=== PATIENT | female | born 1945 | race Caucasian/White ===

== ENCOUNTER → 2016-06-08 | Outpatient (CLI) | payer OTHER ==
[~2016-06-08] MED LIST: ADVIN25050 INH; ALBUAER2 INH; CLOR3.7515 PO; CLR10 PO; ESCI10TA17 PO; GLC5 PO; GLC500 PO; LEVO100T48 PO; LISI-725 PO; NAPR1TAB9 PO; SIMV40TA2 PO; SNG10 PO; THEO1TAB14 PO
[2016-06-08 13:26] LABS: BLOOD UREA NITROGEN 38 mg/dl (7-18); BUN/CREATININE RATIO 20.1 (10-20); CALCIUM 9.2 mg/dl (8.5-10.1); CARBON DIOXIDE 19 mmol/L (21-32); CHLORIDE 110 mmol/L (98-107); GLUCOSE 161 mg/dl (70-99); PHOSPHORUS 4.2 mg/dl (2.5-4.9); POTASSIUM 5.3 mmol/L (3.5-5.1); SODIUM 140 mmol/L (136-145)
[2016-06-08 13:29] LABS: ESTIMATED AVERAGE GLUCOSE 212 mg/dl; HA1C FLAG Normal (Normal)
== END | disposition home or self-care (01) ==
LOC: C.LABMFLN 14:09
PROVIDERS: ATTEND Family Medicine
DX: E11.65 Type 2 diabetes mellitus with hyperglycemia (principal)

== ENCOUNTER → 2016-09-07 | Outpatient (CLI) | payer OTHER ==
[~2016-09-07] MED LIST changes: -THEO1TAB14 PO; +THEO300T14 PO
[2016-09-07 13:55] LABS: RATIO 31.5 mcg/mg (0-30.0)
[2016-09-07 14:07] LABS: ESTIMATED AVERAGE GLUCOSE 189 mg/dl; HA1C FLAG Normal (Normal)
[2016-09-07 14:25] LABS: ALT/SGPT 14 U/L (12-78); AST/SGOT 12 U/L (15-37); BLOOD UREA NITROGEN 44 mg/dl (7-18); BUN/CREATININE RATIO 19.3 (10-20); CALCIUM 8.9 mg/dl (8.5-10.1); CARBON DIOXIDE 24 mmol/L (21-32); CHLORIDE 107 mmol/L (98-107); CHOLESTEROL 155 mg/dl (0-200); GLUCOSE 156 mg/dl (70-99); POTASSIUM 4.5 mmol/L (3.5-5.1); SODIUM 141 mmol/L (136-145)
[2016-09-07 14:28] LABS: ALB/GLOB RATIO 0.8 (0.9-2); ALKALINE PHOSPHATASE 62 U/L (45-117); CHOLESTEROL/HDL RATIO 3.9; HDL CHOLESTEROL 40 mg/dl; LDL CHOLESTEROL CALCULATED 86 mg/dl; TRIGLYCERIDES 145 mg/dl (0-150); VERY LOW DENSITY LIPOPROT CALC 29 mg/dl
== END | disposition home or self-care (01) ==
LOC: C.LABMFLN 08:48
PROVIDERS: ATTEND Family Medicine
DX: N13.5 Crossing vessel and stricture of ureter without hydronephrosis (principal); E11.65 Type 2 diabetes mellitus with hyperglycemia; N18.3 Chronic kidney disease, stage 3 (moderate); E78.5 Hyperlipidemia, unspecified; J45.909 Unspecified asthma, uncomplicated

== ENCOUNTER → 2016-12-10 | Outpatient (CLI) | payer OTHER ==
[~2016-12-10] MED LIST changes: +THEO1TAB14 PO; -THEO300T14 PO
[2016-12-10 14:17] LABS: ESTIMATED AVERAGE GLUCOSE 183 mg/dl; HA1C FLAG Normal (Normal)
[2016-12-10 14:24] LABS: BLOOD UREA NITROGEN 28 mg/dl (7-18); BUN/CREATININE RATIO 18.9 (10-20); CALCIUM 9.3 mg/dl (8.5-10.1); CARBON DIOXIDE 27 mmol/L (21-32); CHLORIDE 105 mmol/L (98-107); GLUCOSE 137 mg/dl (70-99); POTASSIUM 4.3 mmol/L (3.5-5.1); SODIUM 139 mmol/L (136-145)
[2016-12-10 14:25] LABS: PHOSPHORUS 3.4 mg/dl (2.5-4.9)
== END | disposition home or self-care (01) ==
LOC: C.LABMFLN 10:57
PROVIDERS: ATTEND Family Medicine
DX: N18.3 Chronic kidney disease, stage 3 (moderate) (principal); E11.65 Type 2 diabetes mellitus with hyperglycemia

== ENCOUNTER → 2017-03-16 | Outpatient (CLI) | payer OTHER ==
[~2017-03-16] MED LIST changes: -THEO1TAB14 PO; +THEO300T14 PO
[2017-03-16 17:59] LABS: BASO % 0.2 %; BASO ABS # 0.02 K/uL (0-0.2); COMPLETE YES; EOS % 2.8 %; IG% 0.3 %; LYMPH % 17.4 %; LYMPH ABS # 1.78 K/uL (1.2-3.4); MEAN CELL VOLUME 91.8 fL (80-100); MEAN CORPUSCULAR HEMOGLOBIN 30.3 pg (25-34); MEAN PLATELET VOLUME 11.9 fL (7.4-10.4); MONO % 5.6 %; NEUT % 73.7 %; PLATELET COUNT 281 K/uL (130-400); RED BLOOD COUNT 4.03 M/uL (4.2-5.4); WHITE BLOOD COUNT 10.25 K/uL (4.8-10.8)
[2017-03-16 18:05] LABS: BLOOD UREA NITROGEN 28 mg/dl (7-18); BUN/CREATININE RATIO 20.3 (10-20); CALCIUM 9.9 mg/dl (8.5-10.1); CARBON DIOXIDE 29 mmol/L (21-32); CHLORIDE 104 mmol/L (98-107); CREATININE 1.39 mg/dl (0.60-1.20); GLUCOSE 210 mg/dl (70-99); POTASSIUM 4.8 mmol/L (3.5-5.1); SODIUM 140 mmol/L (136-145)
[2017-03-16 18:07] LABS: URINE APPEARANCE CLEAR (CLEAR); URINE BILIRUBIN NEG (NEG); URINE COLOR DK YELLOW; URINE EPITHELIAL CELL AUTO >30 /lpf (0-5); URINE NITRITE NEG (NEG); URINE SPECIFIC GRAVITY 1.025 (1.000-1.030); UROBILINOGEN NEG (NEG)
[2017-03-16 18:15] LABS: MANUAL MICROSCOPIC REQUIRED? NO; REVIEW REQ? YES
[2017-03-16 18:15] LABS: PHOSPHORUS 3.5 mg/dl (2.5-4.9)
[2017-03-17 06:01] LABS: ESTIMATED AVERAGE GLUCOSE 203 mg/dl; HA1C FLAG Normal (Normal)
== END | disposition home or self-care (01) ==
LOC: C.LABMFLN 12:01
PROVIDERS: ATTEND Family Medicine
DX: R30.0 Dysuria (principal); E11.65 Type 2 diabetes mellitus with hyperglycemia; E03.9 Hypothyroidism, unspecified

== ENCOUNTER → 2017-06-23 | Outpatient (CLI) | payer OTHER ==
[2017-06-23 18:14] LABS: ALBUMIN 3.5 gm/dl (3.4-5.0); BLOOD UREA NITROGEN 30 mg/dl (7-18); CALCIUM 9.3 mg/dl (8.5-10.1); CARBON DIOXIDE 30 mmol/L (21-32); GLUCOSE 154 mg/dl (70-99); PHOSPHORUS 3.5 mg/dl (2.5-4.9); POTASSIUM 4.6 mmol/L (3.5-5.1); SODIUM 138 mmol/L (136-145); URIC ACID 5.9 mg/dl (2.6-7.2)
[2017-06-24 06:54] LABS: HEMOGLOBIN A1C 9.2 % (4.5-5.6)
== END | disposition home or self-care (01) ==
LOC: C.LABMFLN 11:41
PROVIDERS: ATTEND Family Medicine
DX: E11.65 Type 2 diabetes mellitus with hyperglycemia (principal); N18.3 Chronic kidney disease, stage 3 (moderate); E11.22 Type 2 diabetes mellitus with diabetic chronic kidney disease; M10.9 Gout, unspecified

== ENCOUNTER 2021-07-24 13:49 | Inpatient (IN) ==
[2021-07-24 14:56] LABS: Basophils # (auto) 0.01 K/uL (0-0.2); Basophils % (auto) 0.2 %; Eosinophils # (auto) 0.04 K/uL (0-0.5); Eosinophils % (auto) 0.8 %; Hematocrit (blood only) 31.5 % (37-47); Hemoglobin 10.3 g/dL (12.0-16.0); Immature Granulocytes # (auto) 0.01 K/uL (0.00-0.02); Immature Granulocytes % (auto) 0.2 %; Lymphocytes # (auto) 0.46 K/uL (1.2-3.4); Mean Corpuscular Hgb Conc 32.7 g/dL (32-36); Mean Corpuscular Volume 94.9 fL (80-100); Mean Platelet Volume 12.2 fL (7.4-10.4); Monocytes % (auto) 3.9 %; Neutrophils # (auto) 4.39 K/uL (1.4-6.5); Neutrophils % (auto) 85.9 %; Platelet Count 218 K/uL (130-400); RDW Coefficient of Variation 13.1 % (11.5-14.5); RDW Standard Deviation 45.4 fL (36.4-46.3); Red Blood Count 3.32 M/uL (4.2-5.4); White Blood Count 5.11 K/uL (4.8-10.8)
--- NOTE | 2021-07-24 15:15 | Emergency Department Note ---
Impression & Plan Enteritis, Dementia, Confusion ED Provider Note Provider: Christopher Castillo MD DATE OF SERVICE: 07/24/2021 CHIEF COMPLAINT: Agitation, reported abdominal pain and diarrhea and vomiting HISTORY OF PRESENT ILLNESS: Patient is a 76-year-old female history of diabetes, dementia, hypothyroidism, breast cancer, CKD, and asthma per records presenting via ambulance today from her personal care facility with reported abdominal pain and diarrhea and vomiting since around 5 AM this morning according to the facility with some agitation. There is report the patient has had UTIs with similar symptoms in the past. Patient was reportedly angry at the facility. Patient upon my exam does not know why she here and does not know her birthday or year. Patient states things sort of hurt all over. She is unable to tell me if she is feeling nauseous or having any difficulty breathing. She follows sim ple commands but is quite confused and very tangential with any discussion. REVIEW OF SYSTEMS: Limited secondary to the patient's dementia PAST MEDICAL HISTORY: As noted above MEDICATIONS: Reviewed home medication list from the facility SOCIAL HISTORY: Resides at [facility] PHYSICAL EXAM: GENERAL: alert in no acute distress on stretcher but not closely oriented to recent events. Head: normocephalic and atraumatic EYES: No injection, discharge or icterus. PERRL, EOMI. NECK: Trachea midline. Supple. ENT: Mucous membranes pink and moist. LUNGS: Airway patent. No retractions. Breath sounds clear with good air entry bilaterally. HEART: Regular rate and rhythm. No chest wall tenderness ABDOMEN: Soft and non-tender, without guarding or rebound. SKIN: Acyanotic, warm, dry, without rashes EXTREMITIES: Without swelling, tenderness or deformity NEUROLOGICAL: No focal deficits. No aphasia. No facial droop. Normal strength and tone in the extremities. Sensation to gross touch normal. EK bpm normal sinus rhythm. No PVC or PAC. No acute ST segment elevation or depression. QTc 457. Normal axis. CONTINUOUS CARDIAC MONITORING: was ordered and showed a heart rate of 70s-80s bpm in normal sinus rhythm Patient's laboratory studies and imaging reviewed. Differential includes Infection, dehydration, metabolic abnormality, hypo/hyperglycemia, electrolyte disturbance, anemia, hypoxia, cardiac sources, intracerebral event, toxicologic, neurologic, as well as other pathologies. IMPRESSION/MEDICAL DECISION MAKING: Given some difficult history obtained from the patient. Does not appear in any significant distress. Vitals without severe abnormality. Basic blood work and broad differential was entertained. Given the patient's underlying dementia and some aggressiveness agitation today CT the head was completed. CT abdomen pelvis complete without contrast given her allergies to evaluate for any intra- abdominal pathology with her vomiting and diarrhea today. Basic blood work shows stable CKD. Minimal anemia. No significant leukocytosis is noted. Mild hyponatremia of 132 is noted. Some hyperglycemia noted. No significant evidence of hepatitis or hepatitis based on labs. Negative troponin. Urinalysis not impressive for infection at this time. Chest x-ray radiology report noted without significant finding. CT of the abdomen without significant findings. CT the head without significant findings. Given small amount IV fluid. Incidental left adnexal finding noted and updated patient's daughter regarding this. Given the patient's personal care status believe she needs further care at the hospital as she is in no condition to go home with her current memory/dementia issues. He comes a bit agitated cardiolipin Ativan here she tries to crawl to bed and is throwing her socks at staff and become somewhat angry. Hospitalist contacted DIAGNOSIS: Gastroenteritis, confusion DISPOSITION: Dated both the facility and the patient's daughter Rosi. Given the patient's personal care/assisted living status at home and her increased confusion with likely a GI illness feel that further observation is indicated. Past Med/Surg History Medical History Acid reflux disease Adenomatous colon polyp Allergic rhinitis Anemia due to chronic kidney disease Anxiety Asthma Benign essential hypertension CKD (chronic kidney disease), stage III Dementia with behavioral disturbance Depression Diabetes Gout History of breast cancer Hyperlipidemia Hypothyroidism Lumbar stenosis with neurogenic claudication Nephrolithiasis Obstructive sleep apnea Osteopenia Vitamin D deficiency Surgical History H/O breast biopsy H/O colonoscopy 01/22/2016 repeat 5yrs H/O dilation and curettage History of cystoscopy History of salpingo-oophorectomy S/P breast lumpectomy S/P hysterectomy S/P ureteral stent placement Family History Mother Breast cancer Coronary heart disease Diabetes Myocardial infarction Aunt Breast cancer Brother Colorectal cancer Grandmother Diabetes Father Myocardial infarction Sister Myocardial infarction Brother Myocardial infarction Denies family history of Ovarian cancer Prostate cancer Social History Smoking Status: Never smoker Second Hand Exposure: Yes (Both parents smoked); Hx Alcohol Use: Yes Alcohol type: wine Alcohol Intake Frequency: Monthly or Less Hx Substance Use: No Preferred Language: Romansh Communication Ability: Effective Visual Impairment: Limited Hearing Ability: Normal Adjunct Teacher Required: No Beliefs That Will Affect Care: None marital status: Current Living Situation: Spouse current occupational status: retired How many Children do You have: 2 Feels Safe at Home: Yes Childhood Exposure to Second-Hand Smoke: Yes (Both parents smoked ) Diet Comment: Regular diet caffeine: No during the past year weight has: remained stable Dental Care, Regularly: No Physical Activity Frequency: Does not Exercise Seatbelt Use: always Sunscreen Use: No Do you think of yourself as: straight/heterosexual Assistive Devices: Denture - Upper, Denture - Lower and Glasses Allergies Allergies Allergy/AdvReac Type Severity Reaction Status Date / Time iodine Allergy Mild Unknown Verified 07/24/21 18:41 clams Allergy Unknown Unknown Verified 07/24/21 18:41 Sulfa (Sulfonamide Allergy Unknown Verified 07/24/21 18:41 Antibiotics) Home Meds Home Medications Medication Instructions Recorded Confirmed lancets [facility] 07/21/21 Lancets) ascorbic acid (vitamin C) 500 mg 500 mg PO DAILY cap 07/21/21 07/24/21 capsule ferrous sulfate 325 mg (65 mg 325 mg PO BID 07/21/21 07/24/21 iron) tablet quetiapine 50 mg tablet 50 mg PO BID 07/21/21 07/24/21 acetaminophen 325 mg tablet 975 mg PO Q6 PRN MDD 3g 07/24/21 07/24/21 albuterol sulfate 2.5 mg CONTINUOUS NEBULIZATION Q4 07/24/21 07/24/21 PRN aluminum-mag hydroxide-simethicone 15 ml PO Q4 PRN 07/24/21 07/24/21 200 mg-200 mg-20 mg/5 mL oral susp (Antacid Liquid) docusate sodium 100 mg capsule 100 mg PO DAILY PRN 07/24/21 07/24/21 levothyroxine 88 mcg tablet 88 mcg PO QAM 07/24/21 07/24/21 melatonin 3 mg disintegrating 3 mg PO HS PRN 07/24/21 07/24/21 tablet montelukast 10 mg tablet 10 mg PO HS 07/24/21 07/24/21 omeprazole 20 mg capsule,delayed 20 mg PO DAILY 07/24/21 07/24/21 release quetiapine 25 mg tablet 25 mg PO QAM 07/24/21 07/24/21 sennosides 8.6 mg capsule (senna) 8.6 mg PO DAILY PRN 07/24/21 07/24/21 Previous Rx's Medication Instructions Recorded blood sugar diagnostic (FreeStyle #300 ea 06/12/19 Lite Strips) escitalopram oxalate 20 mg tablet 20 mg PO DAILY #90 tab 09/05/20 atenolol 25 mg tablet 25 mg PO DAILY #90 tab 02/17/21 Saccharomyces boulardii 250 mg 250 mg PO BID #60 cap 07/24/21 capsule (Florastor) Results & Data (ED) Vital Signs Vital Signs - 24 hr 07/24/21 13:34 07/24/21 13:53 07/24/21 14:34 Temperature 37.4 C Temperature Source Oral Pulse Rate 88 82 Pulse Rate [Left Radial] 84 Pulse Rhythm Regular Pulse Rhythm [Left Radial] Regular Respiratory Rate 20 20 Respiratory Effort / Characteristics Non-Labored Non-Labored Respiratory Depth Normal Normal Respiratory Pattern Regular Blood Pressure 146/93 H Blood Pressure [Left Arm] 146/93 H Blood Pressure Mean 110 Blood Pressure Mean [Left Arm] 110 Blood Pressure Position Lying Blood Pressure Position [Left Arm] Pulse Oximetry 99 96 Oxygen Delivery Method Room Air Room Air Room Air Sepsis Recent Fever Within 48 Hours No Sepsis New/Unexplained Change in Mental Status Yes Sepsis Action Taken by Nursing No Action Required 07/24/21 16:00 07/24/21 18:00 07/24/21 20:14 Temperature Temperature Source Pulse Rate 78 Pulse Rate [Left Radial] 78 80 Pulse Rhythm Pulse Rhythm [Left Radial] Regular Respiratory Rate 20 20 14 Respiratory Effort / Characteristics Non-Labored Non-Labored Respiratory Depth Normal Normal Respiratory Pattern Blood Pressure 145/98 H Blood Pressure [Left Arm] 148/78 H 154/105 H Blood Pressure Mean Blood Pressure Mean [Left Arm] 101 121 Blood Pressure Position Blood Pressure Position [Left Arm] Lying Lying Pulse Oximetry 97 98 94 Oxygen Delivery Method Room Air Room Air Room Air Sepsis Recent Fever Within 48 Hours Sepsis New/Unexplained Change in Mental Status Sepsis Action Taken by Nursing Laboratory Data Result diagrams: 07/24/21 14:48 07/24/21 14:48 Lab Results 07/24/21 07/24/21 07/24/21 Range/Units 14:48 14:48 14:48 WBC 5.11 (4.8-10.8) K/uL RBC 3.32 L (4.2-5.4) M/uL Hgb 10.3 L (12.0-16.0) g/dL Hct 31.5 L (37-47) % MCV 94.9 (80-100) fL MCH 31.0 (25-34) pg MCHC 32.7 (32-36) g/dL RDW Std Deviation 45.4 (36.4-46.3) fL RDW Coeff of Greg 13.1 (11.5-14.5) % Plt Count 218 (130-400) K/uL MPV 12.2 H (7.4-10.4) fL Immature Gran % (Auto) 0.2 % Neut % (Auto) 85.9 % Lymph % (Auto) 9.0 % [place] % (Auto) 3.9 % Eos % (Auto) 0.8 % Baso % (Auto) 0.2 % Neut # (Auto) 4.39 (1.4-6.5) K/uL Lymph # (Auto) 0.46 L (1.2-3.4) K/uL [place] # (Auto) 0.20 (0.11-0.59) K/uL Eos # (Auto) 0.04 (0-0.5) K/uL Baso # (Auto) 0.01 (0-0.2) K/uL Immature Gran # (Auto) 0.01 (0.00-0.02) K/uL Sodium 132 L (136-145) mmol/L Potassium 4.7 (3.5-5.1) mmol/L Chloride 104 (98-107) mmol/L Carbon Dioxide 18 L (21-32) mmol/L Anion Gap 10 (3-11) BUN 25 H (6-23) mg/dl Creatinine 1.37 H (0.6-1.2) mg/dl Est Cr Clr Drug Dosing Not Reportable Est GFR ( Amer) 43.3 ml/min Est GFR (Non-Af Amer) 37.4 ml/min BUN/Creatinine Ratio 18.2 (10-20) Glucose 283 H (70-99(Fasting)) mg/dl Calcium 8.7 (8.5-10.1) mg/dl Total Bilirubin 0.4 (0.2-1.0) mg/dl AST 12 L (13-39) U/L ALT 15 (7-52) U/L Alkaline Phosphatase 57 (34-104) U/L Troponin I < 0.03 (0-0.04) ng/ml Total Protein 7.1 (6.0-8.3) gm/dl Albumin 3.7 (3.4-5.0) gm/dl Globulin 3.4 (2.5-4.0) gm/dl Albumin/Globulin Ratio 1.1 (0.9-2) Lipase 23 (11-82) U/L Urine Color Urine Appearance (Clear) Urine pH (4.5-7.5) Ur Specific [place] (1.000-1.030) Urine Protein (Negative) Urine Glucose (UA) (Negative) Urine Ketones (Negative) Urine Blood (Negative) Urine Nitrite (Negative) Urine Bilirubin (Negative) Urine Urobilinogen (Negative) Ur Leukocyte Esterase (Negative) SARS-CoV-2 (PCR) (Negative) Influenza Type A (PCR) (Neg) Influenza Type B (PCR) (Neg) RSV (RT-PCR) (Neg) 07/24/21 07/24/21 Range/Units 15:23 15:40 WBC (4.8-10.8) K/uL RBC (4.2-5.4) M/uL Hgb (12.0-16.0) g/dL Hct (37-47) % MCV (80-100) fL MCH (25-34) pg MCHC (32-36) g/dL RDW Std Deviation (36.4-46.3) fL RDW Coeff of Greg (11.5-14.5) % Plt Count (130-400) K/uL MPV (7.4-10.4) fL Immature Gran % (Auto) % Neut % (Auto) % Lymph % (Auto) % [place] % (Auto) % Eos % (Auto) % Baso % (Auto) % Neut # (Auto) (1.4-6.5) K/uL Lymph # (Auto) (1.2-3.4) K/uL [place] # (Auto) (0.11-0.59) K/uL Eos # (Auto) (0-0.5) K/uL Baso # (Auto) (0-0.2) K/uL Immature Gran # (Auto) (0.00-0.02) K/uL Sodium (136-145) mmol/L Potassium (3.5-5.1) mmol/L Chloride (98-107) mmol/L Carbon Dioxide (21-32) mmol/L Anion Gap (3-11) BUN (6-23) mg/dl Creatinine (0.6-1.2) mg/dl Est Cr Clr Drug Dosing Est GFR ( Amer) ml/min Est GFR (Non-Af Amer) ml/min BUN/Creatinine Ratio (10-20) Glucose (70-99(Fasting)) mg/dl Calcium (8.5-10.1) mg/dl Total Bilirubin (0.2-1.0) mg/dl AST (13-39) U/L ALT (7-52) U/L Alkaline Phosphatase (34-104) U/L Troponin I (0-0.04) ng/ml Total Protein (6.0-8.3) gm/dl Albumin (3.4-5.0) gm/dl Globulin (2.5-4.0) gm/dl Albumin/Globulin Ratio (0.9-2) Lipase (11-82) U/L Urine Color Yellow Urine Appearance Clear (Clear) Urine pH 5.0 (4.5-7.5) Ur Specific [place] 1.020 (1.000-1.030) Urine Protein Negative (Negative) Urine Glucose (UA) 2+ H (Negative) Urine Ketones Negative (Negative) Urine Blood Negative (Negative) Urine Nitrite Negative (Negative) Urine Bilirubin Negative (Negative) Urine Urobilinogen Negative (Negative) Ur Leukocyte Esterase Negative (Negative) SARS-CoV-2 (PCR) NEGATIVE (Negative) Influenza Type A (PCR) Negative (Neg) Influenza Type B (PCR) Negative (Neg) RSV (RT-PCR) Negative (Neg) Administered Medications Enoxaparin Sodium (Enoxaparin Inj 40 Mg/0.4 Ml Syr) 40 mg SQ Q24H DUNG Stop: 08/23/21 20:59 Last Admin: 07/24/21 21:40 Dose: 40 mg Documented by: [id number] Ferrous Sulfate (Ferrous Sulfate 325 Mg Tab) 325 mg PO BID DUNG Stop: 08/23/21 20:59 Last Admin: 07/24/21 21:41 Dose: 325 mg Documented by: [id number] Lactated Ringer's (Lr) 1,000 mls @ 80 mls/hr IV .[id number] DUNG Stop: 08/23/21 20:44 Last Admin: 07/24/21 21:40 Dose: 80 mls/hr Documented by: [id number] Montelukast Sodium (Montelukast Sodium 10 Mg Tablet) 10 mg PO HS DUNG Stop: 08/23/21 20:59 Last Admin: 07/24/21 21:41 Dose: 10 mg Documented by: [id number] Quetiapine Fumarate (Quetiapine Fumarate 25 Mg Tablet) 50 mg PO BID DUNG Stop: 08/23/21 20:59 Last Admin: 07/24/21 21:40 Dose: 50 mg Documented by: [id number] Saccharomyces Boulardii (Saccharomyces Boulardii 250 Mg Cap) 250 mg PO BID DUNG Stop: 08/23/21 20:59 Last Admin: 07/24/21 21:40 Dose: 250 mg Documented by: [id number] Discontinued Medications Sodium Chloride (Nss 1000ml) 500 mls @ 999 mls/hr IV .Q31M ONE Stop: 07/24/21 17:33 Last Infusion: 07/24/21 18:19 Dose: 0 mls/hr Documented by: [id number] Admin: 07/24/21 17:40 Dose: 999 mls/hr Documented by: [id number] Lorazepam (Lorazepam 2 Mg/1 Ml Vial) 0.5 mg IV NOW STA Stop: 07/24/21 18:13 Last Admin: 07/24/21 18:18 Dose: 0.5 mg Documented by: [id number] Ondansetron HCl (Ondansetron Inj 2 Mg/Ml 2 Ml Vial) Confirm Administered Dose 4 mg .ROUTE .STK-MED ONE Stop: 07/24/21 17:31 Last Admin: 07/24/21 17:40 Dose: Not Given Documented by: [id number] Ondansetron HCl (Ondansetron Inj 2 Mg/Ml 2 Ml Vial) 4 mg IV NOW STA Stop: 07/24/21 17:38 Last Admin: 07/24/21 17:40 Dose: 4 mg Documented by: [id number] Imaging Data Radiologist's Impression: Chest X-Ray 07/24/21 00:00 XR chest 1V portable CLINICAL HISTORY: AMS. Evaluate cardiopulmonary status COMPARISON STUDY: No previous studies for comparison. TECHNIQUE: 1 view of the chest FINDINGS: Single frontal view of the chest demonstrates the heart size to be mildly enlarged. The aorta is atherosclerotic and ectatic. The lungs are clear of alveolar opacities. There is no evidence for pleural effusion. There is no evidence for vascular congestion. There is no acute osseous pathology. IMPRESSION: 1. No acute cardiopulmonary disease. ACT 112: Negative or not required by law. Electronically signed by: Helio Figueroa M.D. 07/24/2021 4:01 PM Abdomen/Pelvis CT 07/24/21 15:02 CT OF THE ABDOMEN AND PELVIS WITHOUT CONTRAST CLINICAL HISTORY: Diarrhea and abdominal pain. COMPARISON STUDY: CT of the abdomen and pelvis February 24, 2008. TECHNIQUE: Axial images of the abdomen and pelvis were obtained without IV cont rast. Images were reviewed in the axial, sagittal, and coronal planes. Automated exposure control was utilized for the study. A dose lowering technique was utilized adhering to the principles of ALARA. FINDINGS: Lung bases are unremarkable. No pneumatosis, free air or portal venous gas is present. Mild dilatation of the right renal pelvis is unchanged since CT of February 24, 2008. No renal, ureteral or bladder calculi are present. A water attenuation 5.5 cm left upper pole lesion favors a renal cyst. This was present on prior CT. No biliary or pancreatic ductal dilatation. No peripancreatic or pericholecystic infiltration. Unenhanced images of the liver, spleen, adrenal glands and pancreas are unremarkable. The appendix is unremarkable. Colon is mildly fluid-filled. No evidence for a bowel obstruction. 2 nodules within the left adnexa measure up to 1.3 cm. These were not clearly present on prior CT. These are marginal significance. There is no ascites. There is no fluid collection. No acute fracture or suspicious lesion within the visualized skeletal structures. IMPRESSION: 1. No urinary calculi or hydronephrosis. Stable dilatation of the right renal pelvis since prior CT. 5.5 cm left renal cyst. 2. No evidence for a bowel obstruction. Fluid-filled colon which could indicate a diarrheal state. 3. 2 small left adnexal nodular densities which were not clearly present on prior CT. Although not highly suspicious, these are indeterminate and a follow- up CT in 6 months to ensure stability is recommended. ACT 112: Negative or not required by law. Electronically signed by: Anam Melendez M.D. 07/24/2021 4:[address] 07/24/21 15:02 CT OF THE HEAD WITHOUT CONTRAST CLINICAL HISTORY: Increased confusion. COMPARISON STUDY: No previous studies for comparison. CT DOSE: 690.05 mGycm TECHNIQUE: Helical axial images of the head were obtained without IV contrast. Automated exposure control was utilized for the study. A dose lowering techn ique was utilized adhering to the principles of ALARA. FINDINGS: No acute intracranial hemorrhage, midline shift or mass effect is present. White matter hypodensities are suggestive of small vessel disease. The ventricular system is unremarkable. The basal cisterns are patent. No extra- axial collections are present. There are no findings to suggest acute dural sinus thrombosis or acute territorial infarct. No significant calvarial abnormalities are present. Visualized portions of the sinuses and mastoid air cells are clear. IMPRESSION: No acute intracranial findings. ACT 112: Negative or not required by law. Electronically signed by: Anam Melendez M.D. 07/24/2021 4:20 PM Discharge Plan Visit Data Chief Complaint: Altered Mental Status ED Provider: Christopher Castillo Discharge Problem: Enteritis, Dementia, Confusion Patient Disposition: Admitted As Inpatient Discharge Instructions Interventions: ED Discharge Assessment Last Done: 07/24/21 20:14
[2021-07-24 15:19] LABS: Alanine Aminotransferase 15 U/L (7-52); Albumin Globulin Ratio 1.1 (0.9-2); Albumin Level 3.7 gm/dl (3.4-5.0); Alkaline Phosphatase 57 U/L (34-104); Anion Gap 10 (3-11); Aspartate Aminotransferase 12 U/L (13-39); BUN Creatinine Ratio 18.2 (10-20); Bilirubin,Total 0.4 mg/dl (0.2-1.0); Blood Urea Nitrogen 25 mg/dl (6-23); Calcium 8.7 mg/dl (8.5-10.1); Carbon Dioxide 18 mmol/L (21-32); Chloride 104 mmol/L (98-107); Est GFR (African American) 43.3 ml/min; Est GFR (Non-African American) 37.4 ml/min; Globulin 3.4 gm/dl (2.5-4.0); Glucose 283 mg/dl (70-99(Fasting)); Potassium 4.7 mmol/L (3.5-5.1); Sodium 132 mmol/L (136-145); Total Protein 7.1 gm/dl (6.0-8.3)
[2021-07-24 15:35] LABS: Appearance Urine Clear (Clear); Bilirubin Urine Negative (Negative); Blood Urine Negative (Negative); Color Urine Yellow; Glucose Urine UA 2+ (Negative); Ketones Urine Negative (Negative); Leukocyte Esterase Urine Negative (Negative); Nitrite Urine Negative (Negative); Protein Urine Negative (Negative); Urobilinogen Urine Negative (Negative)
[2021-07-24 15:59] LABS: Troponin I < 0.03 ng/ml (0-0.04)
[2021-07-24 16:03] LABS: Lipase 23 U/L (11-82)
--- NOTE | 2021-07-24 16:03 | XRay Report ---
XR chest 1V portable CLINICAL HISTORY: AMS. Evaluate cardiopulmonary status COMPARISON STUDY: No previous studies for comparison. TECHNIQUE: 1 view of the chest FINDINGS: Single frontal view of the chest demonstrates the heart size to be mildly enlarged. The aorta is athe rosclerotic and ectatic. The lungs are clear of alveolar opacities. There is no evidence for pleural effusion. There is no evidence for vascular congestion. There is no acute osseous pathology. IMPRESSION: 1. No acute cardiopulmonary disease. ACT 112: Negative or not required by law. Electronically signed by: Helio Figueroa M.D. 07/24/2021 4:01 PM
--- NOTE | 2021-07-24 16:21 | CT Scan Report ---
CT OF THE HEAD WITHOUT CONTRAST CLINICAL HISTORY: Increased confusion. COMPARISON STUDY: No previous studies for comparison. CT DOSE: 690.05 mGycm TECHNIQUE: Helical axial images of the head were obtained without IV contrast. Automated exposure con trol was utilized for the study. A dose lowering technique was utilized adhering to the principles o f ALARA. FINDINGS: No acute intracranial hemorrhage, midline shift or mass effect is present. White matter hyp odensities are suggestive of small vessel disease. The ventricular system is unremarkable. The basal cisterns are patent. No extra-axial collections are present. There are no findings to suggest acute d ural sinus thrombosis or acute territorial infarct. No significant calvarial abnormalities are presen t. Visualized portions of the sinuses and mastoid air cells are clear. IMPRESSION: No acute intracranial findings. ACT 112: Negative or not required by law. Electronically signed by: Anam Melendez M.D. 07/24/2021 4:20 PM
[2021-07-24 16:29] LABS: Influenza A virus by PCR Negative (Neg); Influenza B virus by PCR Negative (Neg); RSV by PCR Negative (Neg); SARS CoV2 RNA(COVID-19) InHosp NEGATIVE (Negative)
--- NOTE | 2021-07-24 16:31 | CT Scan Report ---
CT OF THE ABDOMEN AND PELVIS WITHOUT CONTRAST CLINICAL HISTORY: Diarrhea and abdominal pain. COMPARISON STUDY: CT of the abdomen and pelvis February 24, 2008. TECHNIQUE: Axial images of the abdomen and pelvis were obtained without IV contrast. Images were revi ewed in the axial, sagittal, and coronal planes. Automated exposure control was utilized for the almas dy. A dose lowering technique was utilized adhering to the principles of ALARA. FINDINGS: Lung bases are unremarkable. No pneumatosis, free air or portal venous gas is present. Mild dilatation of the right renal pelvis is unchanged since CT of February 24, 2008. No renal, ureteral o r bladder calculi are present. A water attenuation 5.5 cm left upper pole lesion favors a renal cyst. This was present on prior CT. No biliary or pancreatic ductal dilatation. No peripancreatic or peric holecystic infiltration. Unenhanced images of the liver, spleen, adrenal glands and pancreas are unre markable. The appendix is unremarkable. Colon is mildly fluid-filled. No evidence for a bowel obstruc tion. 2 nodules within the left adnexa measure up to 1.3 cm. These were not clearly present on prior CT. These are marginal significance. There is no ascites. There is no fluid collection. No acute frac ture or suspicious lesion within the visualized skeletal structures. IMPRESSION: 1. No urinary calculi or hydronephrosis. Stable dilatation of the right renal pelvis since prior CT. 5.5 cm left renal cyst. 2. No evidence for a bowel obstruction. Fluid-filled colon which could indicate a diarrheal state. 3. 2 small left adnexal nodular densities which were not clearly present on prior CT. Although not hi ghly suspicious, these are indeterminate and a follow-up CT in 6 months to ensure stability is recomm ended. ACT 112: Negative or not required by law. Electronically signed by: Anam Melendez M.D. 07/24/2021 4:29 PM
[2021-07-24] MEDS ORDERED: SODIUM CHLORIDE 0.9% 1000ML 500 ML IV ONE (17:03)
--- NOTE | 2021-07-24 17:05 | Electrocardiogram Report ---
Test Reason : Blood Pressure : / mmHG Vent. Rate : 081 BPM Atrial Rate : 081 BPM P-R Int : 130 ms QRS Dur : 076 ms QT Int : 394 ms P-R-T Axes : 042 045 033 degrees QTc Int : 457 ms Normal sinus rhythm Normal ECG When compared with ECG of 21-JAN-2007 17:29, No significant change was found Confirmed by Abad Barbosa ([id number]) on 07/24/2021 5:05:00 PM Referred By: Confirmed By:Santi Barbosa
[2021-07-24] MEDS ORDERED: ONDANSETRON INJ 2 MG/ML 2 ML VIAL ONE (17:30)
[2021-07-24] MEDS ORDERED: ONDANSETRON INJ 2 MG/ML 2 ML VIAL IV STA (17:37)
[2021-07-24] MEDS ORDERED: LORazepam 2 MG/1 ML VIAL IV STA (18:12)
--- NOTE | 2021-07-24 19:08 | History & Physical Report ---
Date of Service July 24, 2021 Assessment & Plan (1) Enteritis: Plan: Seems most likely viral, given that there is a viral enteritis predominant in the community at this time. Follow, gently hydrate, supportive care. If the diarrhea persists, given that she has been on antibiotics recently in discussion with the daughter (admission to [facility] about a week ago for a kidney infection), then C. difficile testing may be warranted, but does not seem to be needed at this time. Gentle IV fluids, watchful waiting. (2) Dementia with behavioral disturbance: Plan: Likely a delirium superimposed on dementia due to the illness from enteritis. Continue her home Seroquel, supportive care. Hopefully her behaviors will settle enough that she is able to return to her known environment (3) CKD (chronic kidney disease), stage III: Plan: Overall surprisingly stable despite looking a little bit dehydratedgentle IV fluids as above, follow basic metabolic panel (4) Anemia due to chronic kidney disease: Plan: Follow periodic CBC (5) Diabetes: Plan: Last A1c was 6.8 about 3 months agogiven her age and dementia, no need to recheck this at this time. No specific management needed, but given that her p.o. intake may be suspect, we will utilize twice daily fingersticksmore than anything to help protect her from hypoglycemia from low reserve (6) DVT prophylaxis: Plan: Lovenox (7) Discharge planning issues: Plan: Admit to medical, intermittently hospitalist. PT/OT eval and treat, ultimate goal hopefully is to return to personal care as long as they feel that they can take care of her, if not alternate disposition will need to be sought History of Present Illness Chief Complaint: GI symptoms, behavioral issues Primary Care Provider: Kristyn Guerra MD Patient is a 76-year-old femalehistory is entirely obtained secondhand as she is unable to provide any history herselffor most of the interview and exam she is nonverbal, and then as I about to leave the room she speaks a few short sentences that I cannot quite decipher, but do not seem to be truly relevant to the situation at hand. By secondhand information, it sounds as though she had gastrointestinal symptoms including diarrhea consistent with the viral enteritis that is prevalent in the community, and then during the course of being ill with GI symptoms, she then started having some behaviors that were difficult to manage in her personal care/dementia facility environment. She was sent to the ER for further evaluation. No meaningful HPI review of systems obtainable from patient. In calling her daughterlisted as her primary care intact, she notes that her mom was in the [facility] last week for a kidney infection.In discussion with the patient's daughter, she noted that the dementia is fairly severe, and the patient's nearly nonverbal state, particularly given her acute illness and foreign environment, would not at all be surprising. Allergies Allergy/AdvReac Type Severity Reaction Status Date / Time iodine Allergy Mild Unknown Verified 07/24/21 18:41 clams Allergy Unknown Unknown Verified 07/24/21 18:41 Sulfa (Sulfonamide Allergy Unknown Verified 07/24/21 18:41 Antibiotics) Home Medications Medication Instructions Recorded Confirmed Type lancets 33 gauge (OneTouch Delica #100 ea 01/31/19 07/21/21 History Lancets) blood sugar diagnostic (FreeStyle #300 ea 06/12/19 07/21/21 Rx Lite Strips) escitalopram oxalate 20 mg tablet 20 mg PO DAILY #90 tab 09/05/20 07/24/21 Rx atenolol 25 mg tablet 25 mg PO DAILY #90 tab 02/17/21 07/24/21 Rx ascorbic acid (vitamin C) 500 mg 500 mg PO DAILY cap 07/21/21 07/24/21 History capsule ferrous sulfate 325 mg (65 mg 325 mg PO BID 07/21/21 07/24/21 History iron) tablet quetiapine 50 mg tablet 50 mg PO BID 07/21/21 07/24/21 History Saccharomyces boulardii 250 mg 250 mg PO BID #60 cap 07/24/21 07/24/21 Rx capsule (Florastor) acetaminophen 325 mg tablet 975 mg PO Q6 PRN MDD 3g 07/24/21 07/24/21 History albuterol sulfate 2.5 mg CONTINUOUS NEBULIZATION Q4 07/24/21 07/24/21 History PRN aluminum-mag hydroxide-simethicone 15 ml PO Q4 PRN 07/24/21 07/24/21 History 200 mg-200 mg-20 mg/5 mL oral susp (Antacid Liquid) docusate sodium 100 mg capsule 100 mg PO DAILY PRN 07/24/21 07/24/21 History levothyroxine 88 mcg tablet 88 mcg PO QAM 07/24/21 07/24/21 History melatonin 3 mg disintegrating 3 mg PO HS PRN 07/24/21 07/24/21 History tablet montelukast 10 mg tablet 10 mg PO HS 07/24/21 07/24/21 History omeprazole 20 mg capsule,delayed 20 mg PO DAILY 07/24/21 07/24/21 History release quetiapine 25 mg tablet 25 mg PO QAM 07/24/21 07/24/21 History sennosides 8.6 mg capsule (senna) 8.6 mg PO DAILY PRN 07/24/21 07/24/21 History Past Med/Surg History Medical History Acid reflux disease Adenomatous colon polyp Allergic rhinitis Anemia due to chronic kidney disease Anxiety Asthma Benign essential hypertension CKD (chronic kidney disease), stage III Dementia with behavioral disturbance Depression Diabetes Gout History of breast cancer Hyperlipidemia Hypothyroidism Lumbar stenosis with neurogenic claudication Nephrolithiasis Obstructive sleep apnea Osteopenia Vitamin D deficiency Surgical History H/O breast biopsy H/O colonoscopy 01/22/2016 repeat 5yrs H/O dilation and curettage History of cystoscopy History of salpingo-oophorectomy S/P breast lumpectomy S/P hysterectomy S/P ureteral stent placement Family History Mother Breast cancer Coronary heart disease Diabetes Myocardial infarction Aunt Breast cancer Brother Colorectal cancer Grandmother Diabetes Father Myocardial infarction Sister Myocardial infarction Brother Myocardial infarction Denies family history of Ovarian cancer Prostate cancer Social History Smoking Status: Never smoker Second Hand Exposure: Yes (Both parents smoked); Hx Alcohol Use: Yes Alcohol type: wine Alcohol Intake Frequency: Monthly or Less Hx Substance Use: No Preferred Language: Yoruba Communication Ability: Effective Visual Impairment: Limited Hearing Ability: Normal Automation Qa Tester Required: No Beliefs That Will Affect Care: None marital status: Current Living Situation: Spouse current occupational status: retired How many Children do You have: 2 Feels Safe at Home: Yes Childhood Exposure to Second-Hand Smoke: Yes (Both parents smoked ) Diet Comment: Regular diet caffeine: No during the past year weight has: remained stable Dental Care, Regularly: No Physical Activity Frequency: Does not Exercise Seatbelt Use: always Sunscreen Use: No Do you think of yourself as: straight/heterosexual Assistive Devices: Denture - Upper, Denture - Lower and Glasses Review of Systems Review of Systems: All systems reviewed & are unremarkable except as noted in HPI & below Physical Exam Physical Exam: In general she is awake and alert, but not really verbalas I noted above, near the end of interview/exam she does start to speak in very short very difficult to discern sentences that do not seem to be relevant to the situation at hand. She however does only appear fatigued but not truly in distress. HEENT normocephalic atraumatic mucous membranes seem to be may be slightly dry, although she will not open her mouth for me to look. HEENT normocephalic atraumatic mucous membranes moist. Cardio is regular without rubs murmurs or gallops, lungs clear to auscultation bilaterally no rales rhonchi or wheezes with moderate spontaneous effort. Abdomen is soft nondistended nontender no masses organomegaly. Extremities show no cyanosis clubbing or ed desire, no calf tenderness. Skin turgor seems to be mildly down. Skin otherwise without rashes pallor or icterus. Neuro shows cranial nerves II through XII be grossly intact gross motor and sensory are intact. Mental status as abovenearly nonverbal at this time. Results & Data Results & Data ([facility]) Vital Signs (Past 12 Hours) Vital Signs Temp Pulse Pulse Resp BP BP Pulse Ox 07/24/21 18:00 80 20 154/105 H 98 07/24/21 16:00 78 20 148/78 H 97 07/24/21 14:34 82 84 20 146/93 H 96 07/24/21 13:53 99.3 F 88 20 146/93 H 99 Code Status & VTE Plan VTE Prophylaxis Plan VTE Prophylaxis will be ordered: Yes PG Care Time/CCT Total # of Minutes Spent Total Time Spent with Patient: Total time spent is greater than 50% in coordination of care (as documented) at patient's floor/unit and/or counseling patient: Coding Level of Care Code 08117 Initial Inpt Care Lvl 3 Diagnoses Enteritis K52.9 Dementia with behavioral disturbance F03.91 CKD (chronic kidney disease), stage III N18.3 Anemia due to chronic kidney disease N18.9; D63.1 Diabetes E11.9 DVT prophylaxis Z29.9 Discharge planning issues Z02.9
[2021-07-24] MEDS ORDERED: ACETAMINOPHEN 325 MG TAB PO PRN (20:45)
[2021-07-24] MEDS ORDERED: ALBUTEROL 0.083% NEBU SOLN 3 ML VIAL INH PRN (20:45)
[2021-07-24] MEDS ORDERED: MELATONIN 3 MG TAB PO PRN (20:45)
[2021-07-24] MEDS ORDERED: ONDANSETRON INJ 2 MG/ML 2 ML VIAL IV PRN (20:45)
[2021-07-24] MEDS ORDERED: ALUM MAG HYDROXIDE SIMETH PO PRN (20:45)
[2021-07-24] MEDS ORDERED: DOCUSATE SODIUM 100 MG CAP PO PRN (20:45)
[2021-07-24] MEDS ORDERED: [UNRECOGNIZED DRUG - OTHER] PO PRN (20:45)
[2021-07-24] MEDS ORDERED: MAGNESIUM HYDROXIDE SUSP 30 ML UDC PO PRN (20:45)
[2021-07-24] MEDS ORDERED: ALUMINUM/MAGNESIUM SUSP 30 ML UDC PO PRN (20:45)
[2021-07-24] MEDS ORDERED: SENNA 8.6 MG TAB PO PRN (20:45)
[2021-07-24] MEDS: LACTATED RINGER'S 1,000 ML IV SCH (21:40)
[2021-07-24] MEDS: SACCHAROMYCES BOULARDII 250 MG CAP PO SCH (21:40)
[2021-07-24] MEDS: QUEtiapine FUMARATE 25 MG TABLET PO SCH (21:40)
[2021-07-24] MEDS: ENOXAPARIN INJ 40 MG/0.4 ML SYR SQ SCH (21:40)
[2021-07-24] MEDS: FERROUS SULFATE 325 MG TAB PO SCH (21:41)
[2021-07-24] MEDS: MONTELUKAST SODIUM 10 MG TABLET PO SCH (21:41)
[2021-07-25] MEDS: LEVOTHYROXINE SODIUM 88 MCG TABLET PO SCH (05:20)
[2021-07-25 07:15] LABS: Basophils # (auto) 0.01 K/uL (0-0.2); Basophils % (auto) 0.3 %; Eosinophils # (auto) 0.15 K/uL (0-0.5); Hematocrit (blood only) 28.2 % (37-47); Hemoglobin 9.3 g/dL (12.0-16.0); Immature Granulocytes # (auto) 0.01 K/uL (0.00-0.02); Immature Granulocytes % (auto) 0.3 %; Lymphocytes # (auto) 1.18 K/uL (1.2-3.4); Lymphocytes % (auto) 39.6 %; Mean Corpuscular Hemoglobin 31.2 pg (25-34); Mean Corpuscular Volume 94.6 fL (80-100); Mean Platelet Volume 12.5 fL (7.4-10.4); Monocytes # (auto) 0.31 K/uL (0.11-0.59); Monocytes % (auto) 10.4 %; Neutrophils # (auto) 1.32 K/uL (1.4-6.5); Neutrophils % (auto) 44.4 %; Platelet Count 194 K/uL (130-400); RDW Standard Deviation 45.2 fL (36.4-46.3); Red Blood Count 2.98 M/uL (4.2-5.4); White Blood Count 2.98 K/uL (4.8-10.8)
[2021-07-25 07:17] LABS: Anion Gap 7 (3-11); BUN Creatinine Ratio 17.9 (10-20); Blood Urea Nitrogen 22 mg/dl (6-23); Calcium 8.5 mg/dl (8.5-10.1); Carbon Dioxide 20 mmol/L (21-32); Chloride 108 mmol/L (98-107); Est GFR (African American) 49.3 ml/min; Est GFR (Non-African American) 42.6 ml/min; Glucose 134 mg/dl (70-99(Fasting)); Potassium 4.2 mmol/L (3.5-5.1); Sodium 135 mmol/L (136-145)
[2021-07-25] MEDS: QUEtiapine FUMARATE 25 MG TABLET PO SCH ×3 (07:19→20:09)
[2021-07-25] MEDS: FERROUS SULFATE 325 MG TAB PO SCH ×2 (07:19→20:08)
[2021-07-25] MEDS: ASCORBIC ACID 500 MG TAB PO SCH (07:20)
[2021-07-25] MEDS: ATENOLOL 25 MG TABLET PO SCH (07:20)
[2021-07-25] MEDS: SACCHAROMYCES BOULARDII 250 MG CAP PO SCH ×2 (07:20→20:09)
[2021-07-25] MEDS: PANTOprazole 40 MG TAB PO SCH (07:20)
[2021-07-25] MEDS: LACTATED RINGER'S 1,000 ML IV SCH ×2 (07:21→18:29)
[2021-07-25] MEDS: ESCITALOPRAM OXALATE 20 MG TAB PO SCH (07:21)
--- NOTE | 2021-07-25 16:34 | Hospitalist Progress Note ---
Date of Service July 25, 2021 Assessment & Plan (1) Enteritis: Plan: Improving 1 loose bowel movement as per nursing Discussed with the manager of case management for discharge however she stated there receiving facility cannot take back the patient to Wednesday (2) Dementia with behavioral disturbance: Plan: Likely a delirium superimposed on dementia due to the illness from enteritis. Continue her home Seroquel, supportive care. Hopefully her behaviors will settle enough that she is able to return to her known environment (3) CKD (chronic kidney disease), stage III: Plan: Overall surprisingly stable despite looking a little bit dehydratedgentle IV fluids as above, follow basic metabolic panel (4) Anemia due to chronic kidney disease: Plan: Follow periodic CBC (5) Diabetes: Plan: Good control with the current regimen (6) DVT prophylaxis: Plan: Lovenox (7) Discharge planning issues: Plan: The accepting facility cannot take her back to Wednesday Discussed with the manager of case management She is ready to be discharged Admission and Anticipated Discharge Date Admission Date: July 24, 2021 Subjective No complaint today, lethargic, spoke with the nurse only had 1 bowel movement Review of Systems Review of Systems: The patient has underlying psychiatric disorder, does not involved in Physical Exam Physical Exam: General: Lethargic well-nourished Neck: No lymphadenopathy, supple Respiratory: Lungs are clear to auscultation no chest abnormality Cardiovascular: Regular rate and rhythm no murmur no gallop vegetation Abdomen: Soft bowel sounds active Extremities: No edema no tenderness Skin: No jaundice no rash Neurology: Lethargic no acute distress moves all extremities Psychiatry reported delirium Results & Data Results & Data ([facility]) Vital Signs (Past 12 Hours) Vital Signs Temp Pulse Resp BP Pulse Ox 07/25/21 15:48 36.7 C 68 12 143/84 H 98 07/25/21 08:15 36.7 C 63 12 112/67 98 PG Care Time/CCT Total # of Minutes Spent Total Time Spent with Patient: Total time spent is greater than 50% in coordination of care (as documented) at patient's floor/unit and/or counseling patient: Coding Level of Care Code 39932 Subseq Hosp Care Lvl 2 Diagnoses Enteritis K52.9 Dementia with behavioral disturbance F03.91 CKD (chronic kidney disease), stage III N18.3 Anemia due to chronic kidney disease N18.9; D63.1 Diabetes E11.9 DVT prophylaxis Z29.9 Discharge planning issues Z02.9
[2021-07-25] MEDS: MONTELUKAST SODIUM 10 MG TABLET PO SCH (20:09)
[2021-07-25] MEDS: ENOXAPARIN INJ 40 MG/0.4 ML SYR SQ SCH (20:10)
[2021-07-26] MEDS: LEVOTHYROXINE SODIUM 88 MCG TABLET PO SCH (05:55)
[2021-07-26] MEDS: LACTATED RINGER'S 1,000 ML IV SCH (05:56)
[2021-07-26] MEDS: ASCORBIC ACID 500 MG TAB PO SCH ×2 (09:37→11:43)
[2021-07-26] MEDS: SACCHAROMYCES BOULARDII 250 MG CAP PO SCH ×3 (09:37→21:08)
[2021-07-26] MEDS: PANTOprazole 40 MG TAB PO SCH ×2 (09:37→11:50)
[2021-07-26] MEDS: ESCITALOPRAM OXALATE 20 MG TAB PO SCH ×2 (09:37→11:50)
[2021-07-26] MEDS: FERROUS SULFATE 325 MG TAB PO SCH ×3 (09:38→21:08)
[2021-07-26] MEDS: QUEtiapine FUMARATE 25 MG TABLET PO SCH ×5 (09:38→17:34)
[2021-07-26] MEDS: ATENOLOL 25 MG TABLET PO SCH ×2 (09:38→11:50)
[2021-07-26] MEDS ORDERED: LORazepam 2 MG/1 ML VIAL IM STA ×2 (12:04→15:55)
--- NOTE | 2021-07-26 18:21 | Hospitalist Progress Note ---
Date of Service July 26, 2021 Assessment & Plan (1) Enteritis: Plan: Resolved Discussed with the case resource manager for discharge however she stated there receiving facility cannot take back the patient to Wednesday (2) Dementia with behavioral disturbance: Plan: Became agitated today, christiano anders was called, initially received 2 mg lorazepam IM, x2 does well for couple of hours, yesterday in the afternoon she pulled off all of his IV accesses, started on Zyprexa 10 mg as needed every 4 (3) CKD (chronic kidney disease), stage III: Plan: Stable (4) Anemia due to chronic kidney disease: Plan: Follow periodic CBC (5) Diabetes: Plan: Good control with the current regimen (6) DVT prophylaxis: Plan: Lovenox (7) Discharge planning issues: Plan: The accepting facility cannot take her back to Wednesday Discussed with the case resource manager She is ready to be discharged Admission and Anticipated Discharge Date Admission Date: July 24, 2021 Review of Systems Review of Systems: The patient has underlying psychiatric disorder, does not involved in Physical Exam Physical Exam: General: agitated well-nourished Neck: No lymphadenopathy, supple Respiratory: Lungs are clear to auscultation no chest abnormality Cardiovascular: Regular rate and rhythm no murmur no gallop vegetation Abdomen: Soft bowel sounds active Extremities: No edema no tenderness Skin: No jaundice no rash Neurology: Lethargic no acute distress moves all extremities Psychiatry reported delirium Results & Data Results & Data ([facility]) Vital Signs (Past 12 Hours) Vital Signs Temp Pulse Resp BP Pulse Ox 07/26/21 15:32 36.9 C 67 12 165/76 H 99 07/26/21 07:33 36.6 C 68 12 150/80 H 98 PG Care Time/CCT Total # of Minutes Spent Total Time Spent with Patient: Total time spent is greater than 50% in coordination of care (as documented) at patient's floor/unit and/or counseling patient: Coding Level of Care Code 98442 Subseq Hosp Care Lvl 2 Diagnoses Enteritis K52.9 Dementia with behavioral disturbance F03.91 CKD (chronic kidney disease), stage III N18.3 Anemia due to chronic kidney disease N18.9; D63.1 Diabetes E11.9 DVT prophylaxis Z29.9 Discharge planning issues Z02.9
[2021-07-26] MEDS: MONTELUKAST SODIUM 10 MG TABLET PO SCH (21:08)
[2021-07-26] MEDS: OLANZapine 10 MG/2.1 ML SDV IM PRN (21:16)
[2021-07-26] MEDS: ENOXAPARIN INJ 40 MG/0.4 ML SYR SQ SCH (21:16)
[2021-07-27] MEDS: OLANZapine 10 MG/2.1 ML SDV IM PRN (01:42)
[2021-07-27] MEDS: LACTATED RINGER'S 1,000 ML IV SCH ×2 (02:32→13:46)
[2021-07-27] MEDS: LEVOTHYROXINE SODIUM 88 MCG TABLET PO SCH (06:20)
[2021-07-27] MEDS: QUEtiapine FUMARATE 25 MG TABLET PO SCH ×4 (08:28→22:18)
[2021-07-27] MEDS: ATENOLOL 25 MG TABLET PO SCH (08:29)
[2021-07-27] MEDS: FERROUS SULFATE 325 MG TAB PO SCH ×2 (08:40→22:17)
[2021-07-27] MEDS: SACCHAROMYCES BOULARDII 250 MG CAP PO SCH ×2 (08:40→22:17)
[2021-07-27] MEDS: PANTOprazole 40 MG TAB PO SCH (08:40)
[2021-07-27] MEDS: ESCITALOPRAM OXALATE 20 MG TAB PO SCH (08:40)
[2021-07-27] MEDS: ASCORBIC ACID 500 MG TAB PO SCH (08:40)
--- NOTE | 2021-07-27 17:22 | Hospitalist Progress Note ---
Date of Service July 27, 2021 Assessment & Plan (1) Enteritis: Plan: Resolved Discussed with the case coordinator for discharge however she stated there receiving facility cannot take back the patient till Wednesday, the need to reassess the pain (2) Dementia with behavioral disturbance: Plan: Doing better today, discontinue Zyprexa (3) CKD (chronic kidney disease), stage III: Plan: Stable (4) Anemia due to chronic kidney disease: Plan: Follow periodic CBC (5) Diabetes: Plan: Good control with the current regimen (6) DVT prophylaxis: Plan: Lovenox (7) Discharge planning issues: Plan: The accepting facility cannot take her back to Wednesday Discussed with the case coordinator She is ready to be discharged Admission and Anticipated Discharge Date Admission Date: July 24, 2021 Subjective Review of Systems Review of Systems: The patient has underlying psychiatric disorder, does not involved in communication Physical Exam Physical Exam: General: agitated well-nourished Neck: No lymphadenopathy, supple Respiratory: Lungs are clear to auscultation no chest abnormality Cardiovascular: Regular rate and rhythm no murmur no gallop vegetation Abdomen: Soft bowel sounds active Extremities: No edema no tenderness Skin: No jaundice no rash Neurology: Lethargic no acute distress moves all extremities Psychiatry reported delirium Results & Data Results & Data ([facility]) Vital Signs (Past 12 Hours) Vital Signs Pulse BP Pulse Ox 07/27/21 08:43 77 173/82 H 97 PG Care Time/CCT Total # of Minutes Spent Total Time Spent with Patient: Total time spent is greater than 50% in coordination of care (as documented) at patient's floor/unit and/or counseling patient: Coding Level of Care Code 37912 Subseq Hosp Care Lvl 2 Diagnoses Enteritis K52.9 Dementia with behavioral disturbance F03.91 CKD (chronic kidney disease), stage III N18.3 Anemia due to chronic kidney disease N18.9; D63.1 Diabetes E11.9 DVT prophylaxis Z29.9 Discharge planning issues Z02.9
[2021-07-27] MEDS: ENOXAPARIN INJ 40 MG/0.4 ML SYR SQ SCH (22:14)
[2021-07-27] MEDS: MONTELUKAST SODIUM 10 MG TABLET PO SCH (22:17)
[2021-07-28] MEDS: LACTATED RINGER'S 1,000 ML IV SCH ×2 (00:02→13:28)
[2021-07-28] MEDS: LEVOTHYROXINE SODIUM 88 MCG TABLET PO SCH (06:35)
[2021-07-28] MEDS: QUEtiapine FUMARATE 25 MG TABLET PO SCH ×3 (08:17→22:08)
[2021-07-28] MEDS: ATENOLOL 25 MG TABLET PO SCH (08:17)
[2021-07-28] MEDS: ESCITALOPRAM OXALATE 20 MG TAB PO SCH (08:20)
[2021-07-28] MEDS: PANTOprazole 40 MG TAB PO SCH (08:21)
[2021-07-28] MEDS: ASCORBIC ACID 500 MG TAB PO SCH (08:22)
[2021-07-28] MEDS: FERROUS SULFATE 325 MG TAB PO SCH ×2 (10:01→22:09)
[2021-07-28] MEDS: SACCHAROMYCES BOULARDII 250 MG CAP PO SCH ×2 (17:18→22:08)
--- NOTE | 2021-07-28 18:47 | Hospitalist Progress Note ---
Date of Service July 28, 2021 Assessment & Plan (1) Enteritis: Plan: Resolved Discussed with the rn case mgr for discharge however she stated there receiving facility cannot take back the patient till Wednesday, the need to reassess the pain (2) Dementia with behavioral disturbance: Plan: Doing better today, discontinue Zyprexa (3) CKD (chronic kidney disease), stage III: Plan: Stable (4) Anemia due to chronic kidney disease: Plan: Follow periodic CBC (5) Diabetes: Plan: Good control with the current regimen (6) DVT prophylaxis: Plan: Lovenox (7) Discharge planning issues: Plan: The accepting facility cannot take her back to Wednesday Discussed with the rn case mgr She is ready to be discharged Admission and Anticipated Discharge Date Admission Date: July 24, 2021 Subjective Sleeping, pending placed Review of Systems Review of Systems: Patient is suffering from underlying dementia cannot provide informed Physical Exam Physical Exam: General: agitated well-nourished Neck: No lymphadenopathy, supple Respiratory: Lungs are clear to auscultation no chest abnormality Cardiovascular: Regular rate and rhythm no murmur no gallop vegetation Abdomen: Soft bowel sounds active Extremities: No edema no tenderness Skin: No jaundice no rash Neurology: Lethargic no acute distress moves all extremities Psychiatry reported delirium Results & Data Results & Data ([facility]) Vital Signs (Past 12 Hours) Vital Signs Temp Pulse Resp BP Pulse Ox 07/28/21 17:09 36.8 C 60 16 121/71 98 07/28/21 08:31 36.9 C 73 16 156/76 H 97 PG Care Time/CCT Total # of Minutes Spent Total Time Spent with Patient: Total time spent is greater than 50% in coordination of care (as documented) at patient's floor/unit and/or counseling patient: Coding Level of Care Code 12460 Subseq Hosp Care Lvl 2 Diagnoses Enteritis K52.9 Dementia with behavioral disturbance F03.91 CKD (chronic kidney disease), stage III N18.3 Anemia due to chronic kidney disease N18.9; D63.1 Diabetes E11.9 DVT prophylaxis Z29.9 Discharge planning issues Z02.9
[2021-07-28] MEDS: ENOXAPARIN INJ 40 MG/0.4 ML SYR SQ SCH (22:05)
[2021-07-28] MEDS: MONTELUKAST SODIUM 10 MG TABLET PO SCH (22:09)
[2021-07-29] MEDS: LEVOTHYROXINE SODIUM 88 MCG TABLET PO SCH (05:25)
[2021-07-29] MEDS: ATENOLOL 25 MG TABLET PO SCH (08:17)
[2021-07-29] MEDS: ASCORBIC ACID 500 MG TAB PO SCH (08:17)
[2021-07-29] MEDS: PANTOprazole 40 MG TAB PO SCH (08:17)
[2021-07-29] MEDS: FERROUS SULFATE 325 MG TAB PO SCH (08:17)
[2021-07-29] MEDS: QUEtiapine FUMARATE 25 MG TABLET PO SCH ×2 (08:17)
[2021-07-29] MEDS: SACCHAROMYCES BOULARDII 250 MG CAP PO SCH (08:17)
[2021-07-29] MEDS: ESCITALOPRAM OXALATE 20 MG TAB PO SCH (08:17)
--- NOTE | 2021-07-29 13:48 | Discharge Summary ---
Date of Service July 29, 2021 Admission HPI Per Admitting Provider Patient is a 76-year-old femalehistory is entirely obtained secondhand as she is unable to provide any history herselffor most of the interview and exam she is nonverbal, and then as I about to leave the room she speaks a few short sentences that I cannot quite decipher, but do not seem to be truly relevant to the situation at hand. By secondhand information, it sounds as though she had gastrointestinal symptoms including diarrhea consistent with the viral enteritis that is prevalent in the community, and then during the course of being ill with GI symptoms, she then started having some behaviors that were difficult to manage in her personal care/dementia facility environment. She was sent to the ER for further evaluation. No meaningful HPI review of systems obtainable from patient. In calling her daughterlisted as her primary care intact, she notes that her mom was in the [facility] last week for a kidney infection.In discussion with the patient's daughter, she noted that the dementia is fairly severe, and the patient's nearly nonverbal state, particularly given her acute illness and foreign environment, would not at all be surprising. Principal Diagnosis Gastroenteritis Discharge Exam General: agitated well-nourished Neck: No lymphadenopathy, supple Respiratory: Lungs are clear to auscultation no chest abnormality Cardiovascular: Regular rate and rhythm no murmur no gallop vegetation Abdomen: Soft bowel sounds active Extremities: No edema no tenderness Skin: No jaundice no rash Neurology: Lethargic no acute distress moves all extremities Psychiatry reported delirium Discharge Data Allergies Allergy/AdvReac Type Severity Reaction Status Date / Time iodine Allergy Mild Unknown Verified 07/24/21 18:41 clams Allergy Unknown Unknown Verified 07/24/21 18:41 Sulfa (Sulfonamide Allergy Unknown Verified 07/24/21 18:41 Antibiotics) Consultations 07/24/21 18:26 ED Decision to Admit Stat Ordered Studies 07/24/21 15:02 CT abd pelvis wo con Stat CT head/brain wo con Stat Hospital Course (1) Enteritis: Reported gastroenteritis, resolved possibly viral (2) Dementia with behavioral disturbance: Patient received Zyprexa and lorazepam over the course of (3) CKD (chronic kidney disease), stage III: Stable (4) Anemia due to chronic kidney disease: Follow periodic CBC (5) Diabetes: Good control with the current regimen (6) DVT prophylaxis: Lovenox (7) Discharge planning issues: Will be discharged today Total Time Total Time Spent Total Time Spent (In Minutes): 45 mins Discharge Plan Discharge Items Patient Disposition: Home - Home Health Services Reason For Visit: DELIRIUM ON DEMENTIA, ENTERITIS Discharge Diagnosis: Gastroenteritis Activity: Resume your previous activity Bathing: No limitations Sexual Activity: When tolerated Exercise/Sports: Gradually increase as tolerated Driving/Machine Use: No limitations Weightbearing: Full weightbearing Non-emergency contact: Primary Care Provider Call non-emergency contact if: you have any medication questions and your symptoms worsen Follow-up/Referrals: Kristyn Guerra MD [Primary Care Provider] - Diet: Carb Consistent or DM2 and Low Sodium (2gm) Addtl Attending Provider Instructions: Follow-up with PCP in 2-week Pending Studies at Discharge: No Stand-Alone Forms: My [employer], Smoking Cessation Medications and DC Order Prescriptions: Continued atenolol 25 mg tablet 25 mg PO DAILY Qty: 90 RF: 3 ferrous sulfate 325 mg (65 mg iron) tablet 325 mg PO BID RF: 0 quetiapine 50 mg tablet 50 mg PO BID RF: 0 ascorbic acid (vitamin C) 500 mg capsule 500 mg PO DAILY RF: 0 Saccharomyces boulardii [Florastor] 250 mg capsule 250 mg PO BID Qty: 60 RF: 0 (DME) lancets [OneTouch Delica Lancets] 33 gauge misc See Dose Instructions .ROUTE .MEDSUPPLY Qty: 100 RF: 0 escitalopram oxalate 20 mg tablet 20 mg PO DAILY Qty: 90 RF: 3 (DME) FreeStyle Lite Strips Strip See Dose Instructions .ROUTE .MEDSUPPLY Qty: 300 RF: 3 levothyroxine 88 mcg tablet 88 mcg PO QAM RF: 0 omeprazole 20 mg capsule,delayed release(DR/EC) 20 mg PO DAILY RF: 0 montelukast 10 mg tablet 10 mg PO HS RF: 0 quetiapine 25 mg tablet 25 mg PO QAM RF: 0 acetaminophen 325 mg Tablet 975 mg PO Q6 MDD 3g PRN (Reason: Fever Or Pain) RF: 0 albuterol sulfate 2.5 mg /3 mL (0.083 %) solution for nebulization 2.5 mg continuous nebulization Q4 PRN (Reason: Shortness Of Breath Or Wheezing) RF: 0 docusate sodium 100 mg Capsule 100 mg PO DAILY PRN (Reason: Constipation) RF: 0 alum-mag hydroxide-simeth [Antacid Liquid] 200-200-20 mg/5 mL Suspension 15 ml PO Q4 PRN (Reason: Indigestion) RF: 0 senna 8.6 mg Capsule 8.6 mg PO DAILY PRN (Reason: Constipation) RF: 0 melatonin 3 mg Tablet,Disintegrating 3 mg PO HS PRN (Reason: Sleep) RF: 0 Discharge Orders: Discharge Order (Routine); Ordered 07/29/21 Ordered By: Anjel Valera Admission Data Admit Date/Time: 07/24/21 20:30 Attending Provider: Anjel Valera Admit Provider: Santiago Uribe Primary Care Provider: Kristyn Guerra Other Providers: Santiago Uribe ; [facility] ; [facility], Other Interventions: Discharge Summary Assessment (RN) Last Done: 07/29/21 12:27 Coding Level of Care Code D/C DAY MANAGEMENT >30 MINS Diagnoses Enteritis K52.9 Dementia with behavioral disturbance F03.91 CKD (chronic kidney disease), stage III N18.3 Anemia due to chronic kidney disease N18.9; D63.1 Diabetes E11.9 DVT prophylaxis Z29.9 Discharge planning issues Z02.9 Time Spent (min) 45
== END 2021-07-29 14:35 | disposition home or self-care (01) | DRG 392 ==
LOC: ED 13:49 → 3E 20:14 → SUATTDRO 20:30
DX: Z79.890 Hormone replacement therapy; E11.22 Type 2 diabetes mellitus with diabetic chronic kidney disease; Z91.041 Radiographic dye allergy status; E03.9 Hypothyroidism, unspecified; Z85.3 Personal history of malignant neoplasm of breast; D63.1 Anemia in chronic kidney disease; A08.4 Viral intestinal infection, unspecified; Z88.2 Allergy status to sulfonamides; N18.30 Chronic kidney disease, stage 3 unspecified; F03.91 Unspecified dementia, unspecified severity, with behavioral disturbance

== ENCOUNTER 2021-08-06 20:58 | Observation (INO) ==
[2021-08-06 22:09] LABS: Basophils # (auto) 0.02 K/uL (0-0.2); Basophils % (auto) 0.3 %; Eosinophils # (auto) 0.09 K/uL (0-0.5); Eosinophils % (auto) 1.2 %; Hematocrit (blood only) 33.7 % (37-47); Immature Granulocytes # (auto) 0.01 K/uL (0.00-0.02); Immature Granulocytes % (auto) 0.1 %; Lymphocytes # (auto) 1.73 K/uL (1.2-3.4); Lymphocytes % (auto) 23.5 %; Mean Corpuscular Hgb Conc 32.6 g/dL (32-36); Mean Corpuscular Volume 94.9 fL (80-100); Mean Platelet Volume 12.1 fL (7.4-10.4); Monocytes # (auto) 0.71 K/uL (0.11-0.59); Monocytes % (auto) 9.6 %; Neutrophils % (auto) 65.3 %; Platelet Count 173 K/uL (130-400); RDW Coefficient of Variation 13.3 % (11.5-14.5); RDW Standard Deviation 46.2 fL (36.4-46.3); Red Blood Count 3.55 M/uL (4.2-5.4); White Blood Count 7.36 K/uL (4.8-10.8)
[2021-08-06] MEDS: SODIUM CHLORIDE 0.9% 1000ML 1,000 ML IV SCH (22:09)
[2021-08-06 22:33] LABS: Troponin I < 0.03 ng/ml (0-0.04)
[2021-08-06 23:09] LABS: Alanine Aminotransferase 9 U/L (7-52); Albumin Level 3.6 gm/dl (3.4-5.0); Alkaline Phosphatase 96 U/L (34-104); Anion Gap 10 (3-11); Aspartate Aminotransferase 10 U/L (13-39); Bilirubin,Total 0.4 mg/dl (0.2-1.0); Blood Urea Nitrogen 26 mg/dl (6-23); Calcium 8.3 mg/dl (8.5-10.1); Carbon Dioxide 24 mmol/L (21-32); Chloride 102 mmol/L (98-107); Creatinine Clr Calc Pharmacy 36.1 ml/min; Est GFR (African American) 46.2 ml/min; Est GFR (Non-African American) 39.8 ml/min; Globulin 3.6 gm/dl (2.5-4.0); Glucose 385 mg/dl (70-99(Fasting)); Lipase 22 U/L (11-82); Magnesium 1.2 mg/dl (1.7-2.4); Potassium 3.7 mmol/L (3.5-5.1); Sodium 136 mmol/L (136-145); Total Protein 7.2 gm/dl (6.0-8.3)
[2021-08-06] MEDS: MAGNESIUM SULFATE / D5W 1 GM/100 ML BAG IV SCH (23:36)
[2021-08-06] MEDS ORDERED: NovoLIN-R INSULIN PER UNIT CHARGE SC STA (23:42)
--- NOTE | 2021-08-06 23:42 | Emergency Department Note ---
History of Present Illness General Chief complaint: Hyperglycemia Time Seen by Provider: 08/06/21 21:08 Source: EMS Mode of arrival: EMS Limitations: altered mental status (dementia) History of Present Illness Provider complaint: hyperglycemia This is an 76-year-old female with a history of dementia sent in from a local [facility] via EMS due to concern for persistent hyperglycemia. Patient was recently admitted, does take medication for diabetes. Patient unable to provide any additional history and no additional history available from EMS per nursing staff. Pt seen during a time of high acuity and national emergency pandemic while wearing PPE. Home Medications Medication Instructions Recorded Confirmed Type lancets 33 gauge (OneTouch Delica #100 ea 01/31/19 07/21/21 History Lancets) blood sugar diagnostic (FreeStyle #300 ea 06/12/19 07/21/21 Rx Lite Strips) escitalopram oxalate 20 mg tablet 20 mg PO DAILY #90 tab 09/05/20 08/06/21 Rx atenolol 25 mg tablet 25 mg PO DAILY #90 tab 02/17/21 08/06/21 Rx ascorbic acid (vitamin C) 500 mg 500 mg PO DAILY cap 07/21/21 08/06/21 History capsule ferrous sulfate 325 mg (65 mg 325 mg PO BID 07/21/21 08/06/21 History iron) tablet quetiapine 50 mg tablet 50 mg PO BID 07/21/21 08/06/21 History Saccharomyces boulardii 250 mg 250 mg PO BID #60 cap 07/24/21 08/06/21 Rx capsule (Florastor) acetaminophen 325 mg tablet 975 mg PO Q6 PRN MDD 3g 07/24/21 08/06/21 History albuterol sulfate 2.5 mg CONTINUOUS NEBULIZATION Q4 07/24/21 08/06/21 History PRN aluminum-mag hydroxide-simethicone 15 ml PO Q4 PRN 07/24/21 08/06/21 History 200 mg-200 mg-20 mg/5 mL oral susp (Antacid Liquid) docusate sodium 100 mg capsule 100 mg PO DAILY PRN 07/24/21 08/06/21 History levothyroxine 88 mcg tablet 88 mcg PO QAM 07/24/21 08/06/21 History melatonin 3 mg disintegrating 3 mg PO HS PRN 07/24/21 08/06/21 History tablet montelukast 10 mg tablet 10 mg PO HS 07/24/21 08/06/21 History omeprazole 20 mg capsule,delayed 20 mg PO DAILY 07/24/21 08/06/21 History release quetiapine 25 mg tablet 25 mg PO QAM 07/24/21 08/06/21 History sennosides 8.6 mg capsule (senna) 8.6 mg PO DAILY PRN 07/24/21 08/06/21 History dulaglutide 1.5 mg/0.5 mL 1.5 mg SUBCUT WK 08/07/21 08/07/21 History subcutaneous pen injector (Trulicity) insulin glargine 100 unit/mL (3 10 unit SUBCUT HS #0 ml 08/07/21 08/06/21 Rx mL) subcutaneous pen (Lantus Solostar U-100 Insulin) Allergies Allergy/AdvReac Type Severity Reaction Status Date / Time clams Allergy Unknown Unknown Verified 08/06/21 21:38 iodine Allergy Unknown Unknown Verified 08/06/21 21:38 Sulfa (Sulfonamide Allergy Unknown Unknown Verified 08/06/21 21:38 Antibiotics) Past Med/Surg History Medical History Acid reflux disease Adenomatous colon polyp Allergic rhinitis Anemia due to chronic kidney disease Anxiety Asthma Benign essential hypertension CKD (chronic kidney disease), stage III Dementia with behavioral disturbance Depression Diabetes Gout History of breast cancer Hyperlipidemia Hypothyroidism Lumbar stenosis with neurogenic claudication Nephrolithiasis Obstructive sleep apnea Osteopenia Vitamin D deficiency Surgical History H/O breast biopsy H/O colonoscopy 01/22/2016 repeat 5yrs H/O dilation and curettage History of cystoscopy History of salpingo-oophorectomy S/P breast lumpectomy S/P hysterectomy S/P ureteral stent placement Family History Mother Breast cancer Coronary heart disease Diabetes Myocardial infarction Aunt Breast cancer Brother Colorectal cancer Grandmother Diabetes Father Myocardial infarction Sister Myocardial infarction Brother Myocardial infarction Denies family history of Ovarian cancer Prostate cancer Social History Smoking Status: Unknown if ever smoked Second Hand Exposure: Yes (Both parents smoked); Preferred Language: Albanian Communication Ability: Impaired Visual Impairment: Limited Hearing Ability: Normal Life Sciences Instructor Required: No Beliefs That Will Affect Care: None marital status: / Current Living Situation: Intermediate current occupational status: retired How many Children do You have: 1 Feels Safe at Home: Yes Childhood Exposure to Second-Hand Smoke: Yes (Both parents smoked ) Diet Comment: Regular diet caffeine: No during the past year weight has: remained stable Dental Care, Regularly: No Physical Activity Frequency: Does not Exercise Seatbelt Use: always Sunscreen Use: No Do you think of yourself as: straight/heterosexual Assistive Devices: Walker Review of Systems See HPI for pertinent positives & negatives. Unobtainable due to cognitive status Physical Exam Vital Signs Vital Signs - 24 hr 08/06/21 21:26 Temperature 36.7 C Temperature Source Oral Pulse Rate 75 Pulse Rhythm Regular Pulse Strength Normal Respiratory Rate 18 Blood Pressure 158/89 H Blood Pressure Mean 112 Blood Pressure Position Lying Pulse Oximetry 97 Oxygen Delivery Method Room Air Sepsis Recent Fever Within 48 Hours No Sepsis New/Unexplained Change in Mental Status No Sepsis Action Taken by Nursing No Action Required GENERAL: alert, well appearing, well nourished, no distress, non-toxic EYE EXAM: normal conjunctiva, PERRL and EOM's grossly intact OROPHARYNX: no exudate, no erythema, lips, buccal mucosa, and tongue normal and mucous membranes are moist NECK: supple, no nuchal rigidity, no adenopathy, non-tender LUNGS: Clear to auscultation. Normal chest wall mechanics, no w/r/r HEART: no murmurs, S1 normal and S2 normal ABDOMEN: abdomen soft, non-tender, normo-active bowel sounds, no masses, no rebound or guarding. BACK: Back is symmetrical on inspection and there is no deformity, no midline tenderness, no CVA tenderness. SKIN: no rashes and no bruising UPPER EXTREMITIES: upper extremities are grossly normal. FROM, nml pulses b/l. LOWER EXTREMITIES: No pitting edema. FROM, nml pulses b/l. NEURO EXAM: cranial nerves II-XII grossly intact, normal speech but inappropriate answers, no gross weakness of arms, no gross weakness of legs. Gross sensation intact. Course Course 2333: Discussed with staff. Recent diagnosis of DM. Glucose elevated in 300's persistently despite medications. Baseline is confused. Occasional aggression/agitation. Staff states aggression and agitation seems worse with increasing hyperglycemia. They state with persistently elevated blood sugar levels, they feel her diabetes is not well controlled and she needs additional medical evaluation at this time. Administered Medications Discontinued Medications Atenolol (Atenolol 25 Mg Tablet) 25 mg PO DAILY DUNG Stop: 09/06/21 08:59 Last Admin: 08/07/21 08:55 Dose: 25 mg Documented by: [id number] Enoxaparin Sodium (Enoxaparin Inj 30 Mg/0.3 Ml Syr) 30 mg SQ Q24H DUNG Stop: 09/06/21 07:59 Last Admin: 08/07/21 08:54 Dose: 30 mg Documented by: [id number] Escitalopram Oxalate (Escitalopram Oxalate 20 Mg Tab) 20 mg PO DAILY DUNG Stop: 09/06/21 08:59 Last Admin: 08/07/21 08:56 Dose: 20 mg Documented by: [id number] Sodium Chloride (Nss 1000ml) 1,000 mls @ 125 mls/hr IV .Q8H DUNG Stop: 09/05/21 21:59 Last Infusion: 08/07/21 16:33 Dose: 0 mls/hr Documented by: [id number] Admin: 08/07/21 14:16 Dose: 125 mls/hr Documented by: [id number] Infusion: 08/07/21 13:55 Dose: 125 mls/hr Documented by: [id number] Admin: 08/07/21 05:55 Dose: 125 mls/hr Documented by: [id number] Infusion: 08/07/21 05:55 Dose: 125 mls/hr Documented by: [id number] Admin: 08/06/21 22:09 Dose: 125 mls/hr Documented by: [id number] Magnesium Sulfate/Dextrose (Magnesium Sulfate / D5w) 1 gm in 100 mls @ 100 mls/hr IV Q1H DUNG Stop: 08/07/21 01:15 Last Infusion: 08/07/21 02:23 Dose: 0 mls/hr Documented by: [id number] Admin: 08/07/21 00:48 Dose: 100 mls/hr Documented by: [id number] Infusion: 08/07/21 00:36 Dose: 100 mls/hr Documented by: [id number] Admin: 08/06/21 23:36 Dose: 100 mls/hr Documented by: [id number] Magnesium Sulfate/Dextrose (Magnesium Sulfate / D5w) 1 gm in 100 mls @ 50 mls/hr IV Q2H [facility] Stop: 08/07/21 08:44 Last Infusion: 08/07/21 09:08 Dose: 0 mls/hr Documented by: [id number] Admin: 08/07/21 05:56 Dose: 50 mls/hr Documented by: [id number] Infusion: 08/07/21 05:56 Dose: 50 mls/hr Documented by: [id number] Admin: 08/07/21 04:35 Dose: 50 mls/hr Documented by: [id number] Infusion: 08/07/21 04:35 Dose: 50 mls/hr Documented by: [id number] Admin: 08/07/21 02:55 Dose: 50 mls/hr Documented by: [id number] Insulin Aspart (Insulin Aspart Per Unit) 0 units SC ACHS [facility] Stop: 09/06/21 02:44 Last Admin: 08/07/21 13:09 Dose: 1 units Documented by: [id number] Cosigned by: [id number] Admin: 08/07/21 09:14 Dose: 3 units Documented by: [id number] Cosigned by: [id number] Admin: 08/07/21 03:07 Dose: 1 units Documented by: [id number] Cosigned by: [id number] Insulin Glargine (Insulin Glargine Solostar 100 Units/Ml 3 Ml Pen) 20 units SC ONE ONE Stop: 08/07/21 02:46 Last Admin: 08/07/21 03:07 Dose: 20 units Documented by: [id number] Cosigned by: [id number] Insulin Human Regular (Novolin-R Insulin Per Unit Charge) 8 units SC NOW STA Stop: 08/06/21 23:43 Last Admin: 08/07/21 00:44 Dose: 8 units Documented by: [id number] Cosigned by: [id number] Levothyroxine Sodium (Levothyroxine Sodium 88 Mcg Tablet) 88 mcg PO DAILYBB [facility] Stop: 09/06/21 06:29 Last Admin: 08/07/21 05:55 Dose: 88 mcg Documented by: [id number] Pantoprazole Sodium (Pantoprazole 40 Mg Tab) 40 mg PO DAILY [facility] Stop: 09/06/21 08:59 Last Admin: 08/07/21 08:54 Dose: 40 mg Documented by: [id number] Polyethylene Glycol (Polyethylene (Miralax) 17 Gm Pack) 17 gm PO DAILY [facility]G Stop: 09/06/21 08:59 Last Admin: 08/07/21 08:56 Dose: 17 gm Documented by: [id number] Quetiapine Fumarate (Quetiapine Fumarate 25 Mg Tablet) 75 mg PO QAM [facility] Stop: 09/06/21 08:59 Last Admin: 08/07/21 09:07 Dose: 75 mg Documented by: [id number] Quetiapine Fumarate (Quetiapine Fumarate 25 Mg Tablet) 50 mg PO HS [facility]UNG Stop: 09/06/21 02:44 Last Admin: 08/07/21 02:55 Dose: 50 mg Documented by: [id number] Saccharomyces Boulardii (Saccharomyces Boulardii 250 Mg Cap) 250 mg PO BID DUNG Stop: 09/06/21 08:59 Last Admin: 08/07/21 08:55 Dose: 250 mg Documented by: [id number] Medical Decision Making Differential Diagnosis Differential Diagnosis includes but is not limited to dehydration, stroke, anemia, hypoglycemia, hyponatremia, hypernatremia, urinary tract infection, pneumonia, bronchitis, sepsis, gastroenteritis, additional abdominal pathology, metabolic abnormalities and infections. Medical Records Attestation: I reviewed the patient's medical records. Home Medications Current Medication List: was personally reviewed by me Laboratory Data Attestation: I reviewed the patient's lab results. Result diagrams: 08/06/21 21:20 08/07/21 07:06 Lab Results 08/06/21 08/06/21 08/06/21 Range/Units 21:05 21:20 21:20 WBC 7.36 (4.8-10.8) K/uL RBC 3.55 L (4.2-5.4) M/uL Hgb 11.0 L (12.0-16.0) g/dL Hct 33.7 L (37-47) % MCV 94.9 (80-100) fL MCH 31.0 (25-34) pg MCHC 32.6 (32-36) g/dL RDW Std Deviation 46.2 (36.4-46.3) fL RDW Coeff of Greg 13.3 (11.5-14.5) % Plt Count 173 (130-400) K/uL MPV 12.1 H (7.4-10.4) fL Immature Gran % (Auto) 0.1 % Neut % (Auto) 65.3 % Lymph % (Auto) 23.5 % [place] % (Auto) 9.6 % Eos % (Auto) 1.2 % Baso % (Auto) 0.3 % Neut # (Auto) 4.80 (1.4-6.5) K/uL Lymph # (Auto) 1.73 (1.2-3.4) K/uL [place] # (Auto) 0.71 H (0.11-0.59) K/uL Eos # (Auto) 0.09 (0-0.5) K/uL Baso # (Auto) 0.02 (0-0.2) K/uL Immature Gran # (Auto) 0.01 (0.00-0.02) K/uL Sodium 136 (136-145) mmol/L Potassium 3.7 (3.5-5.1) mmol/L Chloride 102 (98-107) mmol/L Carbon Dioxide 24 (21-32) mmol/L Anion Gap 10 (3-11) BUN 26 H (6-23) mg/dl Creatinine 1.30 H (0.6-1.2) mg/dl Est Cr Clr Drug Dosing 36.1 ml/min Est GFR ( Amer) 46.2 ml/min Est GFR (Non-Af Amer) 39.8 ml/min BUN/Creatinine Ratio 20.0 (10-20) Glucose 385 H* (70-99(Fasting)) mg/dl POC Glucose 410 H* (70-99) mg/dl Calcium 8.3 L (8.5-10.1) mg/dl Magnesium 1.2 L (1.7-2.4) mg/dl Total Bilirubin 0.4 (0.2-1.0) mg/dl AST 10 L (13-39) U/L ALT 9 (7-52) U/L Alkaline Phosphatase 96 (34-104) U/L Troponin I < 0.03 (0-0.04) ng/ml Total Protein 7.2 (6.0-8.3) gm/dl Albumin 3.6 (3.4-5.0) gm/dl Globulin 3.6 (2.5-4.0) gm/dl Albumin/Globulin Ratio 1.0 (0.9-2) Lipase 22 (11-82) U/L TSH (0.300-4.500) uIu/ml 08/06/21 Range/Units 21:20 WBC (4.8-10.8) K/uL RBC (4.2-5.4) M/uL Hgb (12.0-16.0) g/dL Hct (37-47) % MCV (80-100) fL MCH (25-34) pg MCHC (32-36) g/dL RDW Std Deviation (36.4-46.3) fL RDW Coeff of Greg (11.5-14.5) % Plt Count (130-400) K/uL MPV (7.4-10.4) fL Immature Gran % (Auto) % Neut % (Auto) % Lymph % (Auto) % [place] % (Auto) % Eos % (Auto) % Baso % (Auto) % Neut # (Auto) (1.4-6.5) K/uL Lymph # (Auto) (1.2-3.4) K/uL [place] # (Auto) (0.11-0.59) K/uL Eos # (Auto) (0-0.5) K/uL Baso # (Auto) (0-0.2) K/uL Immature Gran # (Auto) (0.00-0.02) K/uL Sodium (136-145) mmol/L Potassium (3.5-5.1) mmol/L Chloride (98-107) mmol/L Carbon Dioxide (21-32) mmol/L Anion Gap (3-11) BUN (6-23) mg/dl Creatinine (0.6-1.2) mg/dl Est Cr Clr Drug Dosing ml/min Est GFR ( Amer) ml/min Est GFR (Non-Af Amer) ml/min BUN/Creatinine Ratio (10-20) Glucose (70-99(Fasting)) mg/dl POC Glucose (70-99) mg/dl Calcium (8.5-10.1) mg/dl Magnesium (1.7-2.4) mg/dl Total Bilirubin (0.2-1.0) mg/dl AST (13-39) U/L ALT (7-52) U/L Alkaline Phosphatase (34-104) U/L Troponin I (0-0.04) ng/ml Total Protein (6.0-8.3) gm/dl Albumin (3.4-5.0) gm/dl Globulin (2.5-4.0) gm/dl Albumin/Globulin Ratio (0.9-2) Lipase (11-82) U/L TSH 0.935 (0.300-4.500) uIu/ml MDM Narrative This is an elderly demented female sent to the emergency room by staff at the local facility where she resides due to concern for persistently elevated blood sugar readings. They state with her increased blood sugar she does become more agitated. Patient unable to provide any additional history due to significant dementia. Patient is afebrile and hemodynamically stable. Patient also noted t o have significant hypomagnesemia, IV repletion was started in the emergency room. Patient given IV fluids and subcu insulin. No evidence of DKA or significant KENNETH. No other significant electrolyte abnormality. Case discussed with hospitalist for additional evaluation and management. An order was placed for continuous cardiac monitoring. The monitor shows a rate of _80_ with _normal sinus__ rhythm. Impression & Plan Hyperglycemia due to diabetes mellitus, Dementia, Hypomagnesemia, Anemia Discharge Plan Visit Data Chief Complaint: Hyperglycemia ED Provider: Kiley Lobo Discharge Problem: Hyperglycemia due to diabetes mellitus, Dementia, Hypomagnesemia, Anemia Patient Disposition: Admitted As Inpatient Discharge Instructions Interventions: ED Discharge Assessment Last Done: 08/07/21 02:19 Discharge Problem: Dementia Qualifiers: Dementia type: unspecified type Dementia behavioral disturbance: with behavi oral disturbance Qualified Code(s): F03.91 - Unspecified dementia with beha vioral disturbance Anemia Qualifiers: Anemia type: unspecified type Qualified Code(s): D64.9 - Anemia, unspecified
[2021-08-07] MEDS ORDERED: PHARMACY GLYCEMIC MGMT CONSULT PRN (00:14)
[2021-08-07] MEDS ORDERED: ONDANSETRON INJ 2 MG/ML 2 ML VIAL IV PRN (00:14)
[2021-08-07] MEDS ORDERED: ALUMINUM/MAGNESIUM SUSP 30 ML UDC PO PRN (00:14)
[2021-08-07] MEDS ORDERED: ACETAMINOPHEN 500 MG TAB PO PRN (00:14)
--- NOTE | 2021-08-07 00:15 | History & Physical Report ---
Date of Service August 07, 2021 Assessment & Plan (1) Diabetes: Plan: 76-year-old female with a past medical history of asthma, hypertension, depression, hypothyroidism, GERD, presents to the emergency department for evaluation of persistent hyperglycemia. #Diabetes type 2 poorly controlled with persistent hyperglycemia Patient presented from dementia facility for evaluation of persistent hyperglycemia. On admission blood sugars was 385. Limited history due to p ravi's advanced dementia -Consult glycemic pharmacy #Dementia -Quetiapine as prescribed #Electrolyte abnormalities Daily BMP replete electrolytes as indicated FENa: Regular diet Code Status: DNR/DNI DVT PPX: Lovenox PT/OT: Ordered Case Management: Consulted Dispo: Alyce Diaz MD PGY 3, FCM This chart was completed utilizing [employer] voice recognition software. Grammatical errors, random word insertions, pronoun errors, and in complete sentences are an occasional consequence of the system. Any questions or concern s about the content, text, or information contained within the body of this dictation should be addressed directly to the physician for clarification. (2) Dementia: History of Present Illness Primary Care Provider: Kristyn Guerra MD 76-year-old female with a past medical history of asthma, hypertension, depression, hypothyroidism, GERD, presents to the emergency department for evaluation of persistent hyperglycemia. Notably she was recently discharged from the hospitalon 08/04 for KENNETH on CKD, abnormal UA, and altered mental status. Patient speaks nonsensically and no specific history was provided by ems or facility.In the emergency department routine labs were obtained, CBC notable for hemoglobin of 11, serum chemistries notable for a creatinine of 1.3 and a serum glucose of 385 liver function studies within normal limits. Given the patient's persistent hyperglycemia the primary team was consulted for admission Upon my arrival patient was resting comfortably she was not alert to person or place. She was sleeping and had very little interest in speaking with me. She reported having no acute complaints at present. Allergies Allergy/AdvReac Type Severity Reaction Status Date / Time clams Allergy Unknown Unknown Verified 08/06/21 21:38 iodine Allergy Unknown Unknown Verified 08/06/21 21:38 Sulfa (Sulfonamide Allergy Unknown Unknown Verified 08/06/21 21:38 Antibiotics) Home Medications Medication Instructions Recorded Confirmed Type lancets 33 gauge (OneTouch Delica #100 ea 01/31/19 07/21/21 History Lancets) blood sugar diagnostic (FreeStyle #300 ea 06/12/19 07/21/21 Rx Lite Strips) escitalopram oxalate 20 mg tablet 20 mg PO DAILY #90 tab 09/05/20 08/06/21 Rx atenolol 25 mg tablet 25 mg PO DAILY #90 tab 02/17/21 08/06/21 Rx ascorbic acid (vitamin C) 500 mg 500 mg PO DAILY cap 07/21/21 08/06/21 History capsule ferrous sulfate 325 mg (65 mg 325 mg PO BID 07/21/21 08/06/21 History iron) tablet quetiapine 50 mg tablet 50 mg PO BID 07/21/21 08/06/21 History Saccharomyces boulardii 250 mg 250 mg PO BID #60 cap 07/24/21 08/06/21 Rx capsule (Florastor) acetaminophen 325 mg tablet 975 mg PO Q6 PRN MDD 3g 07/24/21 08/06/21 History albuterol sulfate 2.5 mg CONTINUOUS NEBULIZATION Q4 07/24/21 08/06/21 History PRN aluminum-mag hydroxide-simethicone 15 ml PO Q4 PRN 07/24/21 08/06/21 History 200 mg-200 mg-20 mg/5 mL oral susp (Antacid Liquid) docusate sodium 100 mg capsule 100 mg PO DAILY PRN 07/24/21 08/06/21 History levothyroxine 88 mcg tablet 88 mcg PO QAM 07/24/21 08/06/21 History melatonin 3 mg disintegrating 3 mg PO HS PRN 07/24/21 08/06/21 History tablet montelukast 10 mg tablet 10 mg PO HS 07/24/21 08/06/21 History omeprazole 20 mg capsule,delayed 20 mg PO DAILY 07/24/21 08/06/21 History release quetiapine 25 mg tablet 25 mg PO QAM 07/24/21 08/06/21 History sennosides 8.6 mg capsule (senna) 8.6 mg PO DAILY PRN 07/24/21 08/06/21 History insulin glargine 100 unit/mL (3 20 unit SUBCUT HS 08/06/21 08/06/21 History mL) subcutaneous pen (Lantus Solostar U-100 Insulin) Past Med/Surg History Medical History Acid reflux disease Adenomatous colon polyp Allergic rhinitis Anemia due to chronic kidney disease Anxiety Asthma Benign essential hypertension CKD (chronic kidney disease), stage III Dementia with behavioral disturbance Depression Diabetes Gout History of breast cancer Hyperlipidemia Hypothyroidism Lumbar stenosis with neurogenic claudication Nephrolithiasis Obstructive sleep apnea Osteopenia Vitamin D deficiency Surgical History H/O breast biopsy H/O colonoscopy 01/22/2016 repeat 5yrs H/O dilation and curettage History of cystoscopy History of salpingo-oophorectomy S/P breast lumpectomy S/P hysterectomy S/P ureteral stent placement Family History Mother Breast cancer Coronary heart disease Diabetes Myocardial infarction Aunt Breast cancer Brother Colorectal cancer Grandmother Diabetes Father Myocardial infarction Sister Myocardial infarction Brother Myocardial infarction Denies family history of Ovarian cancer Prostate cancer Social History Smoking Status: Unknown if ever smoked Second Hand Exposure: Yes (Both parents smoked); Preferred Language: Brazilian Communication Ability: Impaired Visual Impairment: Limited Hearing Ability: Normal Interlocking And Signal Mechanic Required: No Beliefs That Will Affect Care: None marital status: / Current Living Situation: Residential current occupational status: retired How many Children do You have: 1 Other Information That Helps Us Care for You: No Feels Safe at Home: Yes Childhood Exposure to Second-Hand Smoke: Yes (Both parents smoked ) Diet Comment: Regular diet caffeine: No during the past year weight has: remained stable Dental Care, Regularly: No Physical Activity Frequency: Does not Exercise Seatbelt Use: always Sunscreen Use: No Do you think of yourself as: straight/heterosexual Assistive Devices: Glasses Review of Systems Review of Systems: as above Physical Exam Physical Exam: Physical exam limited by patient's poor cooperation Cardiac: Regular rate and rhythm, normal S1, normal S2, I did not appreciated any significant murmurs rubs or gallops, I did not appreciate any significant pedal edema, No calf tenderness, capillary refill is less than 3 seconds Respiratory: Clear to auscultation bilaterally with symmetrical chest rise, I did not appreciate any significant wheezes, rales, rhonchi, no increased work of breathing Results & Data Results & Data ([facility]) Vital Signs (Past 12 Hours) Vital Signs Temp Pulse Resp BP Pulse Ox 08/06/21 21:26 36.7 C 75 18 158/89 H 97 Laboratory Results 08/06/21 08/06/21 08/06/21 Range/Units 21:20 21:20 21:20 WBC 7.36 (4.8-10.8) K/uL RBC 3.55 L (4.2-5.4) M/uL Hgb 11.0 L (12.0-16.0) g/dL Hct 33.7 L (37-47) % MCV 94.9 (80-100) fL MCH 31.0 (25-34) pg MCHC 32.6 (32-36) g/dL RDW Std Deviation 46.2 (36.4-46.3) fL RDW Coeff of Greg 13.3 (11.5-14.5) % Plt Count 173 (130-400) K/uL MPV 12.1 H (7.4-10.4) fL Immature Gran % (Auto) 0.1 % Neut % (Auto) 65.3 % Lymph % (Auto) 23.5 % Smith % (Auto) 9.6 % Eos % (Auto) 1.2 % Baso % (Auto) 0.3 % Neut # (Auto) 4.80 (1.4-6.5) K/uL Lymph # (Auto) 1.73 (1.2-3.4) K/uL Smith # (Auto) 0.71 H (0.11-0.59) K/uL Eos # (Auto) 0.09 (0-0.5) K/uL Baso # (Auto) 0.02 (0-0.2) K/uL Immature Gran # (Auto) 0.01 (0.00-0.02) K/uL Sodium 136 (136-145) mmol/L Potassium 3.7 (3.5-5.1) mmol/L Chloride 102 (98-107) mmol/L Carbon Dioxide 24 (21-32) mmol/L Anion Gap 10 (3-11) BUN 26 H (6-23) mg/dl Creatinine 1.30 H (0.6-1.2) mg/dl Est Cr Clr Drug Dosing 36.1 ml/min Est GFR ( Amer) 46.2 ml/min Est GFR (Non-Af Amer) 39.8 ml/min BUN/Creatinine Ratio 20.0 (10-20) Glucose 385 H* (70-99(Fasting)) mg/dl POC Glucose (70-99) mg/dl Calcium 8.3 L (8.5-10.1) mg/dl Magnesium 1.2 L (1.7-2.4) mg/dl Total Bilirubin 0.4 (0.2-1.0) mg/dl AST 10 L (13-39) U/L ALT 9 (7-52) U/L Alkaline Phosphatase 96 (34-104) U/L Troponin I < 0.03 (0-0.04) ng/ml Total Protein 7.2 (6.0-8.3) gm/dl Albumin 3.6 (3.4-5.0) gm/dl Globulin 3.6 (2.5-4.0) gm/dl Albumin/Globulin Ratio 1.0 (0.9-2) Lipase 22 (11-82) U/L TSH 0.935 (0.300-4.500) uIu/ml 08/06/21 Range/Units 21:05 WBC (4.8-10.8) K/uL RBC (4.2-5.4) M/uL Hgb (12.0-16.0) g/dL Hct (37-47) % MCV (80-100) fL MCH (25-34) pg MCHC (32-36) g/dL RDW Std Deviation (36.4-46.3) fL RDW Coeff of Greg (11.5-14.5) % Plt Count (130-400) K/uL MPV (7.4-10.4) fL Immature Gran % (Auto) % Neut % (Auto) % Lymph % (Auto) % Smith % (Auto) % Eos % (Auto) % Baso % (Auto) % Neut # (Auto) (1.4-6.5) K/uL Lymph # (Auto) (1.2-3.4) K/uL Smith # (Auto) (0.11-0.59) K/uL Eos # (Auto) (0-0.5) K/uL Baso # (Auto) (0-0.2) K/uL Immature Gran # (Auto) (0.00-0.02) K/uL Sodium (136-145) mmol/L Potassium (3.5-5.1) mmol/L Chloride (98-107) mmol/L Carbon Dioxide (21-32) mmol/L Anion Gap (3-11) BUN (6-23) mg/dl Creatinine (0.6-1.2) mg/dl Est Cr Clr Drug Dosing ml/min Est GFR ( Amer) ml/min Est GFR (Non-Af Amer) ml/min BUN/Creatinine Ratio (10-20) Glucose (70-99(Fasting)) mg/dl POC Glucose 410 H* (70-99) mg/dl Calcium (8.5-10.1) mg/dl Magnesium (1.7-2.4) mg/dl Total Bilirubin (0.2-1.0) mg/dl AST (13-39) U/L ALT (7-52) U/L Alkaline Phosphatase (34-104) U/L Troponin I (0-0.04) ng/ml Total Protein (6.0-8.3) gm/dl Albumin (3.4-5.0) gm/dl Globulin (2.5-4.0) gm/dl Albumin/Globulin Ratio (0.9-2) Lipase (11-82) U/L TSH (0.300-4.500) uIu/ml Code Status & VTE Plan Code Status dnri/dni Supervising Physician Co-Signing Physician Notes Patient seen and examined, chart reviewed, case discussed with Dr. Diaz and I agree with his assessment and plan as above. Patient recently discharged, returns with persistent hyperglycemia despite treatment with insulin Sleeping on exam ,easily arousable. Dementia - oriented x 1, did not wish to participate with exam +S1/S2, regular Lungs CTA anteriorly Abd soft, NT/ND with normoactive bowel sounds Labs and images reviewed Assessment/Plan Blood sugar management ?pancreatic pathology in worsening DM in elderly patient - recent imaging with no pancreatic lesion is reassuring. Remainder as above (1) Dementia Dementia behavioral disturbance: with behavioral disturbance Dementia type: unspecified type Qualified Code(s): F03.91 - Unspecified dementia with behavioral disturbance
[2021-08-07] MEDS: MAGNESIUM SULFATE / D5W 1 GM/100 ML BAG IV SCH ×4 (00:48→05:56)
[2021-08-07] MEDS ORDERED: ALBUTEROL 0.083% NEBU SOLN 3 ML VIAL INH PRN (02:12)
[2021-08-07] MEDS ORDERED: DOCUSATE SODIUM 100 MG CAP PO PRN (02:12)
[2021-08-07] MEDS ORDERED: SENNA 8.6 MG TAB PO PRN (02:41)
[2021-08-07] MEDS ORDERED: MELATONIN 3 MG TAB PO PRN (02:41)
[2021-08-07] MEDS ORDERED: CARBOHYDRATES FOR HYPOGLYCEMIA PO PRN (02:45)
[2021-08-07] MEDS ORDERED: QUEtiapine FUMARATE 25 MG TABLET PO SCH ×2 (02:45→09:00)
[2021-08-07] MEDS ORDERED: GLUCOSE 10 TABS/TUBE PO PRN (02:45)
[2021-08-07] MEDS ORDERED: GLUCOSE 40% GEL 15 GM TUBE PO PRN (02:45)
[2021-08-07] MEDS ORDERED: DEXTROSE 50% 50 ML SYRINGE IV PRN (02:45)
[2021-08-07] MEDS ORDERED: GLUCAGON FOR INJ 1 MG VIAL SQ PRN (02:45)
[2021-08-07] MEDS ORDERED: INSULIN GLARGINE SOLOSTAR 100 UNITS/ML 3 ML PEN SC ONE (02:45)
[2021-08-07] MEDS: INSULIN ASPART PER UNIT SC SCH ×3 (03:07→13:09)
--- NOTE | 2021-08-07 04:21 | Billing Data ---
Date of Service August 07, 2021 Coding Level of Care Code INT OBSERVATION CARE 50M LVL 2
[2021-08-07] MEDS: SODIUM CHLORIDE 0.9% 1000ML 1,000 ML IV SCH ×2 (05:55→14:16)
[2021-08-07] MEDS ORDERED: LEVOTHYROXINE SODIUM 88 MCG TABLET PO SCH (06:30)
[2021-08-07] MEDS ORDERED: ENOXAPARIN INJ 30 MG/0.3 ML SYR SQ SCH (08:00)
--- NOTE | 2021-08-07 08:19 | Hospitalist Progress Note ---
Date of Service August 07, 2021 Assessment & Plan (1) Diabetes: Plan: 76-year-old female with a past medical history of asthma, hypertension, depression, hypothyroidism, GERD, presents to the emergency department for evaluation of persistent hyperglycemia. Diabetes type 2 poorly controlled with persistent hyperglycemia -POC glucose on arrival 410 -On lantus 20U HS at home. -Glycemic consult in place. -Continue to trend. Will talk to facility for more history. KENNETH -Creat 1.30 on BMP 08/06 -May still be underhydrated. -Cont. NSS at 125ml/hr. Dementia -Continue Quetiapine 50mg BID, 25mg qAM. FENa: Regular diet Code Status: DNR/DNI DVT PPX: Lovenox PT/OT: Ordered Case Management: Consulted Dispo: [facility] (2) Dementia: Admission and Anticipated Discharge Date Admission Date: August 07, 2021 Subjective No overnight events. Patient without complaints at bedside but hard to elicit meaningful history due to dementia. Review of Systems Constitutional: as per Subjective / HPI Physical Exam Constitutional: WD/WN, vitals as above Eyes: PERRL, conjunctivae normal, anicteric sclerae Respiratory: normal respiratory effort Results & Data Results & Data ([facility]) Vital Signs (Past 12 Hours) Vital Signs Temp Pulse Pulse Pulse Resp BP BP 08/07/21 07:45 35.7 C L 77 14 119/75 08/07/21 02:24 37 C 77 16 134/73 08/07/21 01:00 72 18 158/89 H 08/06/21 21:26 36.7 C 75 18 158/89 H Pulse Ox 08/07/21 07:45 97 08/07/21 02:24 98 08/07/21 01:00 96 08/06/21 21:26 97 (1) Dementia Dementia behavioral disturbance: with behavioral disturbance Dementia type: unspecified type Qualified Code(s): F03.91 - Unspecified dementia with behavioral disturbance
[2021-08-07] MEDS ORDERED: SACCHAROMYCES BOULARDII 250 MG CAP PO SCH (09:00)
[2021-08-07] MEDS ORDERED: POLYETHYLENE (MIRALAX) 17 GM PACK PO SCH (09:00)
[2021-08-07] MEDS ORDERED: ESCITALOPRAM OXALATE 20 MG TAB PO SCH (09:00)
[2021-08-07] MEDS ORDERED: ATENOLOL 25 MG TABLET PO SCH (09:00)
[2021-08-07] MEDS ORDERED: PANTOprazole 40 MG TAB PO SCH (09:00)
[2021-08-07 09:05] LABS: BUN Creatinine Ratio 20.9 (10-20); Creatinine Clr Calc Pharmacy 42.2 ml/min; Est GFR (African American) 56.5 ml/min; Est GFR (Non-African American) 48.7 ml/min; Potassium 3.5 mmol/L (3.5-5.1)
--- NOTE | 2021-08-07 09:46 | Electrocardiogram Report ---
Test Reason : Blood Pressure : / mmHG Vent. Rate : 072 BPM Atrial Rate : 072 BPM P-R Int : 100 ms QRS Dur : 078 ms QT Int : 438 ms P-R-T Axes : 031 028 021 degrees QTc Int : 479 ms Sinus rhythm with short MD Otherwise normal ECG When compared with ECG of 31-JUL-2021 18:12, No significant change was found Confirmed by Byron Hooper ([id number]) on 08/07/2021 9:46:09 AM Referred By: REFERRED SELF Confirmed By:Byron Hooper
[2021-08-07 10:03] LABS: Appearance Urine Clear (Clear); Bacteria Urine Automated Negative (Negative); Bilirubin Urine Negative (Negative); Blood Urine Negative (Negative); Color Urine Yellow; Epithelial Cell Urine Auto >30 /lpf (0-5); Glucose Urine UA 2+ (Negative); Ketones Urine Negative (Negative); Leukocyte Esterase Urine 1+ (Negative); Nitrite Urine Negative (Negative); Protein Urine Negative (Negative); Specific Gravity Urine 1.019 (1.000-1.030); Urobilinogen Urine Negative (Negative)
--- NOTE | 2021-08-07 14:03 | Pharmacy Report ---
Pharmacy Glycemic Short Note 2 - Date of Service August 07, 2021 - Glycemic Short BSG Results (Last 24 hours): 08/06/21 08/06/21 08/07/21 21:05 21:20 00:47 Glucose 385 H* POC Glucose 410 H* 334 H* 08/07/21 08/07/21 08/07/21 03:00 07:06 07:50 Glucose 72 POC Glucose 145 H 80 08/07/21 08/07/21 08:34 12:10 Glucose POC Glucose 106 H 87 OUTPATIENT ANTIDIABETIC REGIMEN: * Trulicity 1.5mg SQ Weekly * Lantus 20 units SQ daily ASSESSMENT: * 76 yo female, PMH of asthma, hypertension, depression, hypothyroidism, GERD, presents to the emergency department for evaluation of persistent hyperglycemia, lives at [facility]. * Spoke w/ Dr Marcial, pt not receiving Lantus or Trulicity at personal care facility, resulting in hyperglycemia. * Trulicity not stocked/ not formulary, will use prandial and correctional insulin in it's place and continue home dose of Lantus. PLAN FOR INPATIENT GLYCEMIC CONTROL: * Hold outpatient Trulicity * Basal insulin * Lantus 20 units SQ HS * Bolus insulin * NovoLog per scale ACHS or Q6hrs while NPO * Goal Range: Low 110 mg/dL - High 140 mg/dL * Correction Factor: 35 mg/dL/unit * Nutritional / Prandial insulin per carb ratio of 1 unit per 15 grams CHO consumed
--- NOTE | 2021-08-07 15:25 | Discharge Summary ---
Date of Service August 07, 2021 Admission HPI Per Admitting Provider 76-year-old female with a past medical history of asthma, hypertension, depression, hypothyroidism, GERD, presents to the emergency department for evaluation of persistent hyperglycemia. Notably she was recently discharged from the hospitalon 08/04 for KENNETH on CKD, abnormal UA, and altered mental status. Patient speaks nonsensically and no specific history was provided by ems or facility.In the emergency department routine labs were obtained, CBC notable for hemoglobin of 11, serum chemistries notable for a creatinine of 1.3 and a serum glucose of 385 liver function studies within normal limits. Given the patient's persistent hyperglycemia the primary team was consulted for admission Upon my arrival patient was resting comfortably she was not alert to person or place. She was sleeping and had very little interest in speaking with me. She reported having no acute complaints at present. Admission Exam Per Admitting Provider Physical exam limited by patient's poor cooperation Cardiac: Regular rate and rhythm, normal S1, normal S2, I did not appreciated any significant murmurs rubs or gallops, I did not appreciate any significant pedal edema, No calf tenderness, capillary refill is less than 3 seconds Respiratory: Clear to auscultation bilaterally with symmetrical chest rise, I did not appreciate any significant wheezes, rales, rhonchi, no increased work of breathing Principal Diagnosis Hyperglycemia Discharge Exam Constitutional WD/WN, vitals as above Eyes PERRL, conjunctivae normal, anicteric sclerae Respiratory normal respiratory effort Discharge Data Allergies Allergy/AdvReac Type Severity Reaction Status Date / Time clams Allergy Unknown Unknown Verified 08/06/21 21:38 iodine Allergy Unknown Unknown Verified 08/06/21 21:38 Sulfa (Sulfonamide Allergy Unknown Unknown Verified 08/06/21 21:38 Antibiotics) Consultations 08/06/21 23:56 ED Decision to Admit Stat Hospital Course (1) Diabetes: 76-year-old female with a past medical history of asthma, hypertension, depression, hypothyroidism, GERD, presents to the emergency department for evaluation of persistent hyperglycemia. Called [facility] 08[facility]07 to discuss events. According to them the patient is a newer resident, has been at the facility since 07/18 and has Lantus 20units HS and had Trulicity 1.5mg subcutaneous weekly for diabetes. She had been getting Lantus 20units HS at her facility but the Trulicity had not been given while she was at their facility. The Lantus and Trulicity medications were not listed from her admission in July or early August (the admission before the current). Her sugars at the time of her admissions in July and early August were within good control. However nursing staff at [facility] told us her blood glucose levels on 08/05 and 08/06 were in the 300's (383 on 08/05 8PM, 310 08/06). Nursing staff denied any extra Seroquel use aside from patient's scheduled 50mg BID and 25mg qAM and stated not a PRN medication for them. Diabetes type 2 poorly controlled with persistent hyperglycemia -POC glucose on arrival 410. Blood sugars maintained throughout stay 80's-100's -High glucose may be from not having received his outpatient dose of Trulicity in the midst of two hospitalization. Also she has been on seroquel since July 21 2021 which may be contributing to further worsening of blood sugars. -Put in discharge instructions to give weekly Trulicity the day of or next day from discharge. -Decreased Lantus 20units to 10units based on BSG of 80 w/ shakes and diaphoresis morning after receiving 20units. -Recommended in D/C instructions to get pre-prandial BSGs. (2) Dementia: Total Time Total Time Spent Total Time Spent (In Minutes): Please see attending attestation. Discharge Plan Discharge Items Patient Disposition: [facility] Reason For Visit: HYPERGLYCEMIA Discharge Diagnosis: Hyperglycemia Activity: Per Instructions section Non-emergency contact: Primary Care Provider Call non-emergency contact if: your symptoms worsen, your pain is worsening and your temperature is above 101 Follow-up/Referrals: Kristyn Guerra MD [Primary Care Provider] - Diet: Carb Consistent or DM2 Addtl Attending Provider Instructions: A discharge summary will be sent to your primary care physician to ensure continuity of care. Ms. Amado came in to our facility this admission for hyperglycemia. The night she arrived she received 20 units of lantus, having a blood glucose of 410. The following morning her blood glucose was 80 and she was found to be slightly lethargic and diaphoretic. Blood glucose levels remained between 80's and 100's during her stay. Upon further discussion with [facility] her blood glucose readings in-between her last admission and the current one read in the 300's on 08/05 and 08/06. During the discussion with [facility] it was realized that she did not have her Trulicity medication recorded upon her first admission to the hospital in July. As a result, this medication did not show up on her discharge medications and so it was not continued on discharge at her facility. Once this was brought to light the Trulicity was placed back on her medication list. According to a nurse at her facility unit she has not received a dose of Trulicity while being at the facility. Thus it is important for her glycemic control that she receive her weekly scheduled dose of Trulicity upon going back to her facility. Please give Ingris her weekly dose of Trulicty 1.5mg subcutaneously either tonight (08/07) or tomorrow morning (08/08). Please check blood glucose prior to meals to ensure blood glucose is not going too low. Follow-up: * You should be seen by your primary physician within the next few weeks. Medications: Your medication list has been reviewed and reconciled upon discharge to ensure accuracy and continuity of care. An updated list of all your medications is included with your hospital discharge paperwork. Please review this list closely, and make note of any changes. * Please continue the patient's Trulicity weekly at 1.5mg subcutaneous injection. * Lantus changed to 10 units HS due to large drop in glucose and symptomatic with 20 units. Take your medications as instructed; do not skip a dose of your medicines. Make sure all of your doctors know every medicine you are taking (including [id number] medicines, vitamins, and supplements). let your primary care provider know before taking any new medicines because some of these may interact with your current medications, or may make your symptoms worse. CONTACT YOUR PRIMARY CARE PROVIDER if you experience any of the following: * Fevers or shaking chills * Shortness of breath not relieved by inhalers, fainting * Sudden abdominal distension not relieved by catheterization. * Difficulty following your treatment plan, or difficulty taking medications CALL 911 OR GO TO THE EMERGENCY DEPARTMENT if you experience any of the following: * Sudden, severe abdominal pain or nausea/vomiting * Severe chest pain, or chest pain that radiates (moves) to your jaw or arm * Sudden, severe shortness of breath or difficulty breathing It was was our pleasure taking care of you here at [facility] . Thank you for allowing us to participate in your care. Pending Studies at Discharge: No Stand-Alone Forms: My [facility] Skilled Items Patient informed of condition?: Yes DNR: Yes Discharge Level of Care: Skilled Communicable Disease: No Discharge Prognosis: Stable Lines: None Urinary Catheter: No Medications and DC Order Prescriptions: Continued atenolol 25 mg tablet 25 mg PO DAILY Qty: 90 RF: 3 ferrous sulfate 325 mg (65 mg iron) tablet 325 mg PO BID RF: 0 quetiapine 50 mg tablet 50 mg PO BID RF: 0 ascorbic acid (vitamin C) 500 mg capsule 500 mg PO DAILY RF: 0 Saccharomyces boulardii [Florastor] 250 mg capsule 250 mg PO BID Qty: 60 RF: 0 (DME) lancets [OneTouch Delica Lancets] 33 gauge misc See Dose Instructions .ROUTE .MEDSUPPLY Qty: 100 RF: 0 escitalopram oxalate 20 mg tablet 20 mg PO DAILY Qty: 90 RF: 3 (DME) FreeStyle Lite Strips Strip See Dose Instructions .ROUTE .MEDSUPPLY Qty: 300 RF: 3 levothyroxine 88 mcg tablet 88 mcg PO QAM RF: 0 omeprazole 20 mg capsule,delayed release(DR/EC) 20 mg PO DAILY RF: 0 montelukast 10 mg tablet 10 mg PO HS RF: 0 quetiapine 25 mg tablet 25 mg PO QAM RF: 0 acetaminophen 325 mg Tablet 975 mg PO Q6 MDD 3g PRN (Reason: Fever Or Pain) RF: 0 albuterol sulfate 2.5 mg /3 mL (0.083 %) solution for nebulization 2.5 mg continuous nebulization Q4 PRN (Reason: Shortness Of Breath Or Wheezing) RF: 0 docusate sodium 100 mg Capsule 100 mg PO DAILY PRN (Reason: Constipation) RF: 0 alum-mag hydroxide-simeth [Antacid Liquid] 200-200-20 mg/5 mL Suspension 15 ml PO Q4 PRN (Reason: Indigestion) RF: 0 senna 8.6 mg Capsule 8.6 mg PO DAILY PRN (Reason: Constipation) RF: 0 melatonin 3 mg Tablet,Disintegrating 3 mg PO HS PRN (Reason: Sleep) RF: 0 Trulicity 1.5 mg/0.5 mL pen injector 1.5 mg SUBCUT WK RF: 0 Changed Lantus Solostar U-100 Insulin 100 unit/mL (3 mL) Insulin Pen 10 unit SUBCUT HS Qty: 0 RF: 0 Discharge Orders: Discharge Order (Routine); Ordered 08/07/21 Ordered By: Jama Park Admission Data Admit Date/Time: 08/07/21 00:14 Attending Provider: Ambika Marcial Admit Provider: Anoop Diaz I. Primary Care Provider: Kristyn Guerra Other Providers: rTacy Diaz Other Interventions: Discharge Summary Assessment (RN) Last Done: 08/07/21 16:05 Supervising Physician Co-Signing Physician Notes Resident Physician Supervision Note: I independently interviewed and examined the patient and verified the louise history and physical, reviewed labs and image studies and agree with resident Dr. Park findings and care plan. Resident Activity Tracking Resident Involvement: Resident Care Provided Care Provided: Adult [facility] Medicine
[2021-08-07] MEDS ORDERED: MONTELUKAST SODIUM 10 MG TABLET PO SCH (21:00)
[2021-08-07] MEDS ORDERED: INSULIN GLARGINE SOLOSTAR 100 UNITS/ML 3 ML PEN SC SCH (21:00)
== END 2021-08-07 16:34 ==
LOC: 3N 20:58 → ED 20:58 → SUATTDRO 08-07 00:14 → 3N 08-07 02:19

== ENCOUNTER 2023-06-27 08:16 | Inpatient (IN) ==
--- NOTE | 2023-06-27 08:50 | Emergency Department Note ---
Impression & Plan Closed hip fracture ADMIT ED Provider Note HPI: History obtained from bedside RN via report from nursing facility. The patient is a 78-year-old female with history of dementia, reportedly currently on hospice at her nursing facility, presents the emergency department with apparent pain in her left hip and unable to bear weight. Patient reportedly had an unwitnessed potential fall yesterday when she was found sitting in front of a chair. She has had some issues with ambulation since. Patient is unable to provide me with any history on arrival secondary to her baseline dementia. She does appear to have some guarding of the left hip area on arrival, she is otherwise alert on arrival. ROS: - Per HPI Differential Diagnosis: Hip fracture, femur fracture, pelvic ring fracture, muscle spasms/contusion, amongst other potential pathologies. *Outpatient medications and allergy history reviewed. 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 I did discuss the patient's presentation as she reportedly is on hospice with the patient's daughter, Rosi Correia, over the phone. Patient's daughter states that they would like to pursue surgical interventions, she states the patient is on hospice to receive specific services since she is not a comfort measures only patient. IV was established and lab work obtained. Patient was given IV morphine and IV Zofran for pain. Lab work shows no leukocytosis, hemoglobin is stable 11.4, platelet count is normal. CMP does not show any critical findings. COVID testing is negative. Consultation was placed for orthopedics, case was discussed with the on-call midlevel provider for the hospitalist service for [facility], Jacqueline Hunter PA-C. Patient was placed for admission in stable condition. Consultants/Discussions held with other healthcare providers: -[facility] hospitalist service, Dr. Villagomez Disposition discussion held by myself with: -Patient's daughter over the phone Diagnosis: 1. Left hip fracture, acute, closed 2. History of dementia, nonverbal Disposition: Admit Alvin Recinos DO Emergency Medicine Past Med/Surg History Medical History (Updated 06/27/23 @ 14:21 by Alvin Recinos DO) Dementia with behavioral disturbance Vitamin D deficiency Anemia due to chronic kidney disease Diabetes Osteopenia Obstructive sleep apnea Nephrolithiasis Lumbar stenosis with neurogenic claudication Hypothyroidism Hyperlipidemia History of breast cancer Gout Depression CKD (chronic kidney disease), stage III Benign essential hypertension Asthma Anxiety Allergic rhinitis Adenomatous colon polyp Acid reflux disease Surgical History S/P ureteral stent placement H/O breast biopsy History of salpingo-oophorectomy S/P hysterectomy H/O dilation and curettage H/O colonoscopy 01/22/2016 repeat 5yrs History of cystoscopy S/P breast lumpectomy Family History Mother Breast cancer Coronary heart disease Diabetes Myocardial infarction Aunt Breast cancer Brother Colorectal cancer Grandmother Diabetes Father Myocardial infarction Sister Myocardial infarction Brother Myocardial infarction Denies family history of Ovarian cancer Prostate cancer Social History Smoking Status: Unknown if ever smoked Second Hand Exposure: Yes (Both parents smoked); Preferred Language: Algerian Communication Ability: Impaired Visual Impairment: Limited Hearing Ability: Normal Communications Programmer Required: No Beliefs That Will Affect Care: None marital status: / Current Living Situation: Half-Way current occupational status: retired How many Children do You have: 1 Feels Safe at Home: Yes Childhood Exposure to Second-Hand Smoke: Yes (Both parents smoked ) Diet: regular Diet Comment: Regular diet caffeine: No during the past year weight has: remained stable Dental Care, Regularly: No Physical Activity Frequency: Does not Exercise Seatbelt Use: always Sunscreen Use: No Do you think of yourself as: straight/heterosexual Assistive Devices: Walker Allergies Allergies Allergy/AdvReac Type Severity Reaction Status Date / Time clams Allergy Unknown Unknown Verified 04/19/22 16:07 iodine Allergy Unknown Unknown Verified 04/19/22 16:07 Sulfa (Sulfonamide Allergy Unknown Unknown Verified 04/19/22 16:07 Antibiotics) Home Meds Home Medications Medication Instructions Recorded Confirmed ferrous sulfate 325 mg (65 mg 325 mg PO BID 07/21/21 06/27/23 iron) tablet acetaminophen 325 mg tablet 975 mg PO Q6 PRN Fever Or Pain 07/24/21 06/27/23 montelukast 10 mg tablet 10 mg PO HS 07/24/21 06/27/23 omeprazole 20 mg capsule,delayed 20 mg PO DAILY 07/24/21 06/27/23 release sennosides 8.6 mg capsule (senna) 17.2 mg PO .EVERY OTHER DAY PRN 07/24/21 06/27/23 Constipation dulaglutide 1.5 mg/0.5 mL 1.5 mg subcut WK 08/07/21 06/27/23 subcutaneous pen injector (Trulicity) lorazepam 0.5 mg tablet 0.5 mg PO Q8 PRN Anxiety 04/19/22 06/27/23 quetiapine 100 mg tablet 100 mg PO TID 04/19/22 06/27/23 levothyroxine 88 mcg tablet 88 mcg PO DAILY 06/27/23 06/27/23 magnesium hydroxide 400 mg/5 mL 2,400 mg PO DAILY PRN Constipation 06/27/23 06/27/23 oral suspension (Milk of Magnesia) naproxen sodium 220 mg tablet 220 mg PO BID PRN Pain 06/27/23 06/27/23 nystatin 100,000 unit/gram topical 1 applic topical BID PRN flare 06/27/23 06/27/23 cream nystatin 100,000 unit/gram topical 1 applic topical TID PRN redness 06/27/23 06/27/23 powder in abdominal folds tramadol 50 mg tablet 50 mg PO TID PRN Pain 06/27/23 06/27/23 Previous Rx's Medication Instructions Recorded escitalopram oxalate 20 mg tablet 20 mg PO DAILY #90 tabs 09/05/20 atenolol 25 mg tablet 25 mg PO DAILY #90 tabs 02/17/21 insulin glargine 100 unit/mL (3 10 unit (0.1 mL) subcut HS #0 mL 08/07/21 mL) subcutaneous pen (Lantus Solostar U-100 Insulin) Results & Data (ED) Vital Signs Vital Signs - 24 hr 06/27/23 08:30 06/27/23 08:30 06/27/23 08:33 Temperature 36.9 C Temperature Source Oral Pulse Rate 106 H 107 H Pulse Rate [Right Finger] Pulse Rate from SpO2 Sensor Respiratory Rate 16 13 Respiratory Effort / Characteristics Non-Labored Spontaneous Respiratory Depth Normal Blood Pressure 89/70 L Blood Pressure [Left Arm] Blood Pressure Mean 76 Blood Pressure Mean [Left Arm] Pulse Oximetry 99 Oxygen Delivery Method Room Air Room Air Sepsis Recent Fever Within 48 Hours No Sepsis New/Unexplained Change in Mental Status N/A Sepsis Action Taken by Nursing No Action Required 06/27/23 08:36 06/27/23 08:47 06/27/23 08:47 Temperature Temperature Source Pulse Rate 107 H 103 H Pulse Rate [Right Finger] Pulse Rate from SpO2 Sensor Respiratory Rate 13 Respiratory Effort / Characteristics Respiratory Depth Blood Pressure 144/84 H Blood Pressure [Left Arm] Blood Pressure Mean 105 Blood Pressure Mean [Left Arm] Pulse Oximetry Oxygen Delivery Method Sepsis Recent Fever Within 48 Hours Sepsis New/Unexplained Change in Mental Status Sepsis Action Taken by Nursing 06/27/23 08:50 06/27/23 09:00 06/27/23 09:30 Temperature Temperature Source Pulse Rate 94 H 100 H Pulse Rate [Right Finger] 102 H Pulse Rate from SpO2 Sensor 93 H 100 H Respiratory Rate 16 16 18 Respiratory Effort / Characteristics Non-Labored Respiratory Depth Normal Blood Pressure Blood Pressure [Left Arm] 144/84 H Blood Pressure Mean Blood Pressure Mean [Left Arm] 104 Pulse Oximetry 97 94 95 Oxygen Delivery Method Room Air Sepsis Recent Fever Within 48 Hours Sepsis New/Unexplained Change in Mental Status Sepsis Action Taken by Nursing 06/27/23 10:00 06/27/23 10:30 06/27/23 10:51 Temperature Temperature Source Pulse Rate 97 H 97 H Pulse Rate [Right Finger] Pulse Rate from SpO2 Sensor 97 H 97 H Respiratory Rate 17 19 Respiratory Effort / Characteristics Respiratory Depth Blood Pressure 157/90 H Blood Pressure [Left Arm] Blood Pressure Mean 123 Blood Pressure Mean [Left Arm] Pulse Oximetry 97 97 Oxygen Delivery Method Sepsis Recent Fever Within 48 Hours Sepsis New/Unexplained Change in Mental Status Sepsis Action Taken by Nursing 06/27/23 10:51 06/27/23 11:06 06/27/23 11:08 Temperature Temperature Source Pulse Rate 98 H 125 H 101 H Pulse Rate [Right Finger] Pulse Rate from SpO2 Sensor 99 H 111 H 101 H Respiratory Rate 17 18 Respiratory Effort / Characteristics Respiratory Depth Blood Pressure Blood Pressure [Left Arm] Blood Pressure Mean Blood Pressure Mean [Left Arm] Pulse Oximetry 94 96 Oxygen Delivery Method Sepsis Recent Fever Within 48 Hours Sepsis New/Unexplained Change in Mental Status Sepsis Action Taken by Nursing 06/27/23 11:08 06/27/23 11:30 06/27/23 11:35 Temperature Temperature Source Pulse Rate 100 H 96 H Pulse Rate [Right Finger] Pulse Rate from SpO2 Sensor 101 H 98 H Respiratory Rate 16 14 Respiratory Effort / Characteristics Respiratory Depth Blood Pressure 149/96 H Blood Pressure [Left Arm] Blood Pressure Mean 104 Blood Pressure Mean [Left Arm] Pulse Oximetry 95 93 Oxygen Delivery Method Sepsis Recent Fever Within 48 Hours Sepsis New/Unexplained Change in Mental Status Sepsis Action Taken by Nursing 06/27/23 11:35 Temperature Temperature Source Pulse Rate Pulse Rate [Right Finger] Pulse Rate from SpO2 Sensor Respiratory Rate Respiratory Effort / Characteristics Respiratory Depth Blood Pressure 151/91 H Blood Pressure [Left Arm] Blood Pressure Mean 116 Blood Pressure Mean [Left Arm] Pulse Oximetry Oxygen Delivery Method Sepsis Recent Fever Within 48 Hours Sepsis New/Unexplained Change in Mental Status Sepsis Action Taken by Nursing Laboratory Data 06/27/23 11:10 06/27/23 08:49 Lab Results 06/27/23 06/27/23 06/27/23 Range/Units 08:49 11:10 11:30 WBC 8.56 (4.8-10.8) K/ul RBC 3.77 L (4.20-5.40) M/uL Hgb 11.4 L (12.0-16.0) g/dl Hct 34.4 L (37.0-47.0) % MCV 91.2 (80.0-100.0) fL MCH 30.2 (25.0-34.0) pg MCHC 33.1 (32.0-36.0) g/dL RDW Std Deviation 44.1 (36.4-46.3) fL RDW Coeff of Greg 13.3 (11.5-14.5) % Plt Count 184 (130-400) K/uL MPV 11.3 (9.4-12.4) fL Immature Gran % (Auto) 0.4 % Neut % (Auto) 72.0 % Lymph % (Auto) 21.3 % [place] % (Auto) 5.6 % Eos % (Auto) 0.2 % Baso % (Auto) 0.5 % Neut # (Auto) 6.17 (1.40-6.50) K/uL Lymph # (Auto) 1.82 (1.20-3.40) K/uL [place] # (Auto) 0.48 (0.11-0.59) K/uL Eos # (Auto) 0.02 (0.00-0.50) K/uL Baso # (Auto) 0.04 (0.00-0.20) K/uL Immature Gran # (Auto) 0.03 (0.01-0.20) K/uL Sodium 136 (136-145) mmol/L Potassium 4.5 (3.5-5.1) mmol/L Chloride 105 (98-107) mmol/L Carbon Dioxide 20 L (21-32) mmol/L Anion Gap 11 (3-11) BUN 40 H (6-23) mg/dl Creatinine 1.45 H (0.6-1.2) mg/dl Est Cr Clr Drug Dosing Not Reportable Est GFR ( Amer) 39.9 ml/min Est GFR (Non-Af Amer) 34.4 ml/min BUN/Creatinine Ratio 27.6 H (10-20) Glucose 259 H (70-99(Fasting)) mg/dl Calcium 9.2 (8.6-10.3) mg/dl Total Bilirubin 0.6 (0.2-1.0) mg/dl AST 16 (13-39) U/L ALT 11 (7-52) U/L Alkaline Phosphatase 54 (34-104) U/L Total Protein 7.2 (6.0-8.3) gm/dl Albumin 3.7 (3.4-5.0) gm/dl Globulin 3.5 (2.5-4.0) gm/dl Albumin/Globulin Ratio 1.1 (0.9-2) SARS-CoV-2, RNA, NAAT NEGATIVE (NEGATIVE) Administered Medications Discontinued Medications Sodium Chloride (Nss) 500 mls @ 999 mls/hr IV .Q31M ONE Stop: 06/27/23 10:52 Last Infusion: 06/27/23 12:30 Dose: Infused Documented By: Admin: 06/27/23 10:44 Dose: 999 mls/hr Documented By: TERRY Acetaminophen (Ofirmev) 1,000 mg in 100 mls @ 400 mls/hr IV NOW STA Stop: 06/27/23 12:25 Last Admin: 06/27/23 13:13 Dose: 400 mls/hr Documented By: OLGA Morphine Sulfate (Morphine Sulfate 4 Mg/Ml 1 Ml Carp\Vial) 4 mg IV NOW STA Stop: 06/27/23 10:22 Last Admin: 06/27/23 10:44 Dose: 4 mg Documented By: TERRY Ondansetron HCl (Ondansetron Inj 2 Mg/Ml 2 Ml Vial) 4 mg IV NOW STA Stop: 06/27/23 10:22 Last Admin: 06/27/23 10:44 Dose: 4 mg Documented By: TERRY Imaging Data Radiologist's Impression: Head CT 06/27/23 08:[address] DOSE: 625.8 mGy.cm HISTORY: fall TECHNIQUE: Multiaxial CT images of the head were performed without the use of intravenous contrast. Automated exposure control was utilized for this study. A dose lowering technique was utilized adhering to the principles of ALARA. Comparison: Head CT 12/11/2022. Findings: The paranasal sinuses and mastoid air cells are clear. The calvarium and skull base are intact. There is no mass, hematoma, midline shift, acute infarct. White matter hypodensity is nonspecific but suggestive of microvascular ischemic change. The ventricles and sulci demonstrate mild age-related involutional changes. Impression: No acute intracranial abnormality. ACT 112: Negative or not required by law. Electronically signed by: Efe Bonner M.D. 06/27/2023 9:44 AM Hip/Pelvis X-Ray 06/27/23 08:48 XR hip CATHLEEN 2v w pelvis CLINICAL HISTORY: fall. Bilateral hip pain. COMPARISON STUDY: Pelvis 12/11/2022. FINDINGS: There is a mildly displaced acute left femoral neck fracture. No dislocation of the femoral head. The visualized pelvic bones and right hip are intact. IMPRESSION: Mildly displaced left femoral neck fracture. ACT 112: Negative or not required by law. Electronically signed by: Efe Bonner M.D. 06/27/2023 9:28 AM Discharge Plan Visit Data Chief Complaint: Fall ED Provider: Alvin Recinos Discharge Problem: Closed hip fracture Forms Stand Alone Forms: [facility] Prescriptions Prescriptions: No Action atenolol 25 mg tablet 25 mg PO DAILY Qty: 90 3RF Rx Instructions: hold for HR <60 or SBP <100 and notify service if dose is held ferrous sulfate 325 mg (65 mg iron) tablet 325 mg PO BID escitalopram oxalate 20 mg tablet 20 mg PO DAILY Qty: 90 3RF omeprazole 20 mg capsule,delayed release(DR/EC) 20 mg PO DAILY montelukast 10 mg tablet 10 mg PO HS acetaminophen 325 mg Tablet 975 mg PO Q6 MDD 3g PRN (Reason: Fever Or Pain) senna 8.6 mg Capsule 17.2 mg PO .EVERY OTHER DAY PRN (Reason: Constipation) Trulicity 1.5 mg/0.5 mL pen injector 1.5 mg SUBCUT WK Rx Instructions: Fridays insulin glargine [Lantus Solostar U-100 Insulin] 100 unit/mL (3 mL) Insulin Pen 10 unit SUBCUT HS Qty: 0 0RF quetiapine 100 mg tablet 100 mg PO TID lorazepam 0.5 mg tablet 0.5 mg PO Q8 PRN (Reason: Anxiety) tramadol 50 mg Tablet 50 mg PO TID PRN (Reason: Pain) levothyroxine 88 mcg tablet 88 mcg PO DAILY magnesium hydroxide [Milk of Magnesia] 400 mg/5 mL Suspension 2,400 mg PO DAILY PRN (Reason: Constipation) Rx Instructions: Give until large bowel movement noted nystatin 100,000 unit/gram Cream 1 applic TOPICAL BID PRN (Reason: flare) naproxen sodium 220 mg Tablet 220 mg PO BID PRN (Reason: Pain) nystatin 100,000 unit/gram Powder 1 applic TOPICAL TID PRN (Reason: redness in abdominal folds) [place]errals [place] [facility] [place] [Primary Care Provider[place] - Discharge Problem: Closed hip fracture Qualifiers: Encounter type: initial encounter Laterality: left Qualified Code(s): S72.002A - Fracture of unspecified part of neck of left femur, initial encounter for closed fracture
--- NOTE | 2023-06-27 09:29 | XRay Report ---
XR hip CATHLEEN 2v w pelvis CLINICAL HISTORY: fall. Bilateral hip pain. COMPARISON STUDY: Pelvis 12/11/2022. FINDINGS: There is a mildly displaced acute left femoral neck fracture. No dislocation of the femoral head. The visualized pelvic bones and right hip are intact. IMPRESSION: Mildly displaced left femoral neck fracture. ACT 112: Negative or not required by law. Electronically signed by: Efe Bonner M.D. 06/27/2023 9:28 AM
--- NOTE | 2023-06-27 09:46 | CT Scan Report ---
HEAD CT NONCONTRAST CT DOSE: 625.8 mGy.cm HISTORY: fall TECHNIQUE: Multiaxial CT images of the head were performed without the use of intravenous contrast. A utomated exposure control was utilized for this study. A dose lowering technique was utilized adheri ng to the principles of ALARA. Comparison: Head CT 12/11/2022. Findings: The paranasal sinuses and mastoid air cells are clear. The calvarium and skull base are int act. There is no mass, hematoma, midline shift, acute infarct. White matter hypodensity is nonspecifi c but suggestive of microvascular ischemic change. The ventricles and sulci demonstrate mild age-rela helen involutional changes. Impression: No acute intracranial abnormality. ACT 112: Negative or not required by law. Electronically signed by: Efe Bonner M.D. 06/27/2023 9:44 AM
[2023-06-27] MEDS: MoRPHine SULFATE 4 MG/ML 1 ML CARP\\VIAL IV STA (10:44)
[2023-06-27] MEDS: SODIUM CHLORIDE 0.9% 500 ML IV ONE (10:44)
[2023-06-27] MEDS: ONDANSETRON INJ 2 MG/ML 2 ML VIAL IV STA (10:44)
[2023-06-27 10:54] LABS: Alanine Aminotransferase 11 U/L (7-52); Albumin Globulin Ratio 1.1 (0.9-2); Albumin Level 3.7 gm/dl (3.4-5.0); Alkaline Phosphatase 54 U/L (34-104); Anion Gap 11 (3-11); Aspartate Aminotransferase 16 U/L (13-39); BUN Creatinine Ratio 27.6 (10-20); Bilirubin,Total 0.6 mg/dl (0.2-1.0); Blood Urea Nitrogen 40 mg/dl (6-23); Calcium 9.2 mg/dl (8.6-10.3); Carbon Dioxide 20 mmol/L (21-32); Chloride 105 mmol/L (98-107); Est GFR (African American) 39.9 ml/min; Est GFR (Non-African American) 34.4 ml/min; Globulin 3.5 gm/dl (2.5-4.0); Glucose 259 mg/dl (70-99(Fasting)); Potassium 4.5 mmol/L (3.5-5.1); Sodium 136 mmol/L (136-145); Total Protein 7.2 gm/dl (6.0-8.3)
--- NOTE | 2023-06-27 11:45 | History & Physical Report ---
Date of Service June 27, 2023 Assessment & Plan (1) Left displaced femoral neck fracture: Plan: This is a 78 y/o female with advanced dementia, insulin-requiring DM2, hx breast cancer, GERD w/ hx PUD, depression, asthma, gout, hypercholesterolemia, and other history as outlined below [facility] after an unwitnessed fall yesterday. Work-up in the ED revealed a mildly displaced left femoral neck fracture. I spoke with pt's daughter, Rosi, to discuss goals of care. The family would like to pursue interventions to maximize patient's ability to ambulate, so they request orthopedic evaluation for possible surgical intervention if indicated. At baseline, pt is relatively [facility] the [facility], though not always compliant with recommended assistive devices. Pt is medically optimized for possible surgical intervention. No additional cardiac work-up indicated. No contraindication to surgical intervention from a medical perspective at this time. - Admit to med surg - Consult orthopedic surgery for possible surgical repair - Fall precautions, aspiration precautions - Diabetic diet - per daughter, pt has not had documented issues with dysphagia or aspiration - Pain control - Eventual PT evaluation but pending decision on possible surgery (2) Insulin-requiring or dependent type II diabetes mellitus: Plan: Diabetic diet pending possible OR BSG ACHS (or Q6 hrs if NPO) Insulin sliding scale - will hold basal during admission (3) Dementia with behavioral disturbance: Plan: Daughter reports that this is advanced at baseline - does not recognize family, not oriented Fall precautions - daughter reports that patient does have a tendency to wander, will monitor for delirium, may need to consider 1:1 depending on hospital course (4) Hypothyroidism: Plan: Chronic, continue levothyroxine (5) Depression: Plan: Chronic, continue outpatient meds (6) Benign essential hypertension: Plan: Chronic - BP slightly elevated currently but suspect related to pain, unfamiliar environment Continue atenolol and monitor (7) Acid reflux disease: Plan: Chronic, stable Continue outpatient PPI therapy Plan Pt seen and reviewed with collaborating physician, Dr. Villagomez. Plan of care discussed and as outlined above. Code status: DNR/DNI DVT Prophylaxis: SubQ heparin Dillon Hunter PA-C History of Present Illness Chief Complaint: Fall Primary Care Provider: Addisonhernandez Barrios This is a 78 y/o female with advanced dementia, insulin-requiring DM2, hx breast cancer, GERD w/ hx PUD, depression, asthma, gout, hypercholesterolemia, and other history as outlined below who [facility] with refusal to ambulate after an unwitnessed fall yesterday. Pt has advanced dementia and is unable to answer questions/provide any history so her records from [facility] and prior hospital records were extensively reviewed. Apparently, pt was found on the floor in her room yesterday, but presumed fall was not witnessed. Since then, she has been refusing to bear weight on her left leg and has not been able to ambulate so she was sent into the ED today for further evaluation. In the ED, work-up revealed a left hip fracture so ED provider discussed findings with family who would like to pursue surgical fixation if indicate so we have been consulted for admission. Currently, pt appears to be resting comfortably in the ED. Nursing reports that she gets agitated at times, specifically if her left leg is moved around too much and causes her pain. Spoke with pt's daughter, Rosi, who reported that patient should likely be using a walker to ambulate but she often refuses to. She reports pt has had multiple falls since last summer. Allergies Allergy/AdvReac Type Severity Reaction Status Date / Time clams Allergy Unknown Unknown Verified 04/19/22 16:07 iodine Allergy Unknown Unknown Verified 04/19/22 16:07 Sulfa (Sulfonamide Allergy Unknown Unknown Verified 04/19/22 16:07 Antibiotics) Home Medications Medication Instructions Recorded Confirmed Type escitalopram oxalate 20 mg tablet 20 mg PO DAILY #90 tabs 09/05/20 06/27/23 Rx atenolol 25 mg tablet 25 mg PO DAILY #90 tabs 02/17/21 06/27/23 Rx ferrous sulfate 325 mg (65 mg 325 mg PO BID 07/21/21 06/27/23 History iron) tablet acetaminophen 325 mg tablet 975 mg PO Q6 PRN Fever Or Pain 07/24/21 06/27/23 History montelukast 10 mg tablet 10 mg PO HS 07/24/21 06/27/23 History omeprazole 20 mg capsule,delayed 20 mg PO DAILY 07/24/21 06/27/23 History release sennosides 8.6 mg capsule (senna) 17.2 mg PO .EVERY OTHER DAY PRN 07/24/21 06/27/23 History Constipation dulaglutide 1.5 mg/0.5 mL 1.5 mg subcut WK 08/07/21 06/27/23 History subcutaneous pen injector (Trulicity) insulin glargine 100 unit/mL (3 10 unit (0.1 mL) subcut HS #0 mL 08/07/21 06/27/23 Rx mL) subcutaneous pen (Lantus Solostar U-100 Insulin) lorazepam 0.5 mg tablet 0.5 mg PO Q8 PRN Anxiety 04/19/22 06/27/23 History quetiapine 100 mg tablet 100 mg PO TID 04/19/22 06/27/23 History levothyroxine 88 mcg tablet 88 mcg PO DAILY 06/27/23 06/27/23 History magnesium hydroxide 400 mg/5 mL 2,400 mg PO DAILY PRN Constipation 06/27/23 06/27/23 History oral suspension (Milk of Magnesia) naproxen sodium 220 mg tablet 220 mg PO BID PRN Pain 06/27/23 06/27/23 History nystatin 100,000 unit/gram topical 1 applic topical BID PRN flare 06/27/23 06/27/23 History cream nystatin 100,000 unit/gram topical 1 applic topical TID PRN redness 06/27/23 06/27/23 History powder in abdominal folds tramadol 50 mg tablet 50 mg PO TID PRN Pain 06/27/23 06/27/23 History Past Med/Surg History Medical History (Updated 06/27/23 @ 14:21 by Alvin Recinos DO) Dementia with behavioral disturbance Vitamin D deficiency Anemia due to chronic kidney disease Diabetes Osteopenia Obstructive sleep apnea Nephrolithiasis Lumbar stenosis with neurogenic claudication Hypothyroidism Hyperlipidemia History of breast cancer Gout Depression CKD (chronic kidney disease), stage III Benign essential hypertension Asthma Anxiety Allergic rhinitis Adenomatous colon polyp Acid reflux disease Surgical History S/P ureteral stent placement H/O breast biopsy History of salpingo-oophorectomy S/P hysterectomy H/O dilation and curettage H/O colonoscopy 01/22/2016 repeat 5yrs History of cystoscopy S/P breast lumpectomy Family History Mother Breast cancer Coronary heart disease Diabetes Myocardial infarction Aunt Breast cancer Brother Colorectal cancer Grandmother Diabetes Father Myocardial infarction Sister Myocardial infarction Brother Myocardial infarction Denies family history of Ovarian cancer Prostate cancer Social History Smoking Status: Unknown if ever smoked Second Hand Exposure: Yes (Both parents smoked); Preferred Language: Greenlandic Communication Ability: Unable Communication Ability Comment: pt non verbal; hx of advanced dementia Visual Impairment: Limited Hearing Ability: Normal 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 Beliefs That Will Affect Care: None marital status: / Current Living Situation: Detention current occupational status: retired How many Children do You have: 1 Feels Safe at Home: Yes Childhood Exposure to Second-Hand Smoke: Yes (Both parents smoked ) Diet: regular Diet Comment: Regular diet caffeine: No during the past year weight has: remained stable Dental Care, Regularly: No Physical Activity Frequency: Does not Exercise Seatbelt Use: always Sunscreen Use: No Do you think of yourself as: straight/heterosexual Assistive Devices: Walker Review of Systems Review of Systems: Unobtainable due to cognitive status (advanced dementia) Physical Exam Physical Exam: General: awake, no acute distress but moaning at times HEENT: no scleral icterus, moist oral mucosa Neck: trachea midline Heart: RRR Lungs: CTA bilaterally Abdomen: soft, NT, +BS Extremities: no pedal edema, LLE externally rotated and shortened - currently has an ice pack on her left hip Skin: no jaundice Neurologic: aphasia, not oriented to place or time, unclear if oriented to person Results & Data Results & Data Vital Signs (Past 12 Hours) Vital Signs Temp Pulse Pulse Resp BP BP Pulse Ox 06/27/23 08:50 102 H 16 144/84 H 97 06/27/23 08:36 107 H 06/27/23 08:30 06/27/23 08:30 36.9 C 106 H 16 89/70 L 99 O2 Del Method 06/27/23 08:50 Room Air 06/27/23 08:36 06/27/23 08:30 Room Air 06/27/23 08:30 Room Air Laboratory Results Laboratory Results - last 24 hr 06/27/23 06/27/23 08:49 11:10 WBC 8.56 RBC 3.77 L Hgb 11.4 L Hct 34.4 L MCV 91.2 MCH 30.2 MCHC 33.1 RDW Std Deviation 44.1 RDW Coeff of Greg 13.3 Plt Count 184 MPV 11.3 Immature Gran % (Auto) 0.4 Neut % (Auto) 72.0 Lymph % (Auto) 21.3 Lander % (Auto) 5.6 Eos % (Auto) 0.2 Baso % (Auto) 0.5 Neut # (Auto) 6.17 Lymph # (Auto) 1.82 Lander # (Auto) 0.48 Eos # (Auto) 0.02 Baso # (Auto) 0.04 Immature Gran # (Auto) 0.03 Sodium 136 Potassium 4.5 Chloride 105 Carbon Dioxide 20 L Anion Gap 11 BUN 40 H Creatinine 1.45 H Est Cr Clr Drug Dosing Not Reportable Est GFR ( Amer) 39.9 Est GFR (Non-Af Amer) 34.4 BUN/Creatinine Ratio 27.6 H Glucose 259 H Calcium 9.2 Total Bilirubin 0.6 AST 16 ALT 11 Alkaline Phosphatase 54 Total Protein 7.2 Albumin 3.7 Globulin 3.5 Albumin/Globulin Ratio 1.[address] 06/27/23 08:[address] DOSE: 625.8 mGy.cm HISTORY: fall TECHNIQUE: Multiaxial CT images of the head were performed without the use of intravenous contrast. Automated exposure control was utilized for this study. A dose lowering technique was utilized adhering to the principles of ALARA. Comparison: Head CT 12/11/2022. Findings: The paranasal sinuses and mastoid air cells are clear. The calvarium and skull base are intact. There is no mass, hematoma, midline shift, acute infarct. White matter hypodensity is nonspecific but suggestive of microvascular ischemic change. The ventricles and sulci demonstrate mild age-related involutional changes. Impression: No acute intracranial abnormality. ACT 112: Negative or not required by law. Electronically signed by: Efe Bonner M.D. 06/27/2023 9:44 AM Hip/Pelvis X-Ray 06/27/23 08:48 XR hip CATHLEEN 2v w pelvis CLINICAL HISTORY: fall. Bilateral hip pain. COMPARISON STUDY: Pelvis 12/11/2022. FINDINGS: There is a mildly displaced acute left femoral neck fracture. No dislocation of the femoral head. The visualized pelvic bones and right hip are intact. IMPRESSION: Mildly displaced left femoral neck fracture. ACT 112: Negative or not required by law. Electronically signed by: Efe Bonner M.D. 06/27/2023 9:28 AM Medications Administered Discontinued Medications Sodium Chloride (Nss) 500 mls @ 999 mls/hr IV .Q31M ONE Stop: 06/27/23 10:52 Last Admin: 06/27/23 10:44 Dose: 999 mls/hr Documented By: NRB Morphine Sulfate (Morphine Sulfate 4 Mg/Ml 1 Ml Carp\Vial) 4 mg IV NOW STA Stop: 06/27/23 10:22 Last Admin: 06/27/23 10:44 Dose: 4 mg Documented By: NRB Ondansetron HCl (Ondansetron Inj 2 Mg/Ml 2 Ml Vial) 4 mg IV NOW STA Stop: 06/27/23 10:22 Last Admin: 06/27/23 10:44 Dose: 4 mg Documented By: NRB Supervising Physician Co-Signing Physician Notes Care coordinated with Ramonita Hunter PA-C. Agree with above note. Patient seen and examined. Please refer to her notes for full details. Vital signs reviewed. Physical exam: General exam: Drowsy, Non verbal . CVS: S1 and S2 heard, regular rate and rhythm, no murmurs. RS: Clear to auscultation, no wheezing or crackles. ABD: Soft, bowel sounds present, no distention. 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 Labs: Reviewed. Assessment and plan:78f with hx of DM, HTN severe dementia [facility] because of unwitnessed fall last night. As per daughter patient walks without support as she has severe dementia. Today seems she was not ambulating and was brought in here and imaging studies showing mildly displaced left femoral fracture neck. Could not get any history from patinet. Hemodynamics ok. s/p Fall Left femoral neck fracture cbc ok cr 1.4 severe dementia hx of htn and DM ambulates without support prior to fall ekg no acute findings CXR ok Patient should be at acceptable risk to proceed with surgery Severe dementia monitor for delirium KENNETH Cr 1.4 avoid nephrotoxic agents on gentle fluids follow labs, DVT px one dose hep sub tonight further anticoagulation as per ortho. Other diagnosis and plan of care as per Ramonita Hunter PA-C . Bigg hair MD. (4) Hypothyroidism Hypothyroidism type: unspecified Qualified Code(s): E03.9 - Hypothyroidism, unspecified (5) Depression Depression Type: unspecified Qualified Code(s): F32.A - Depression, unspecified (7) Acid reflux disease Esophagitis presence: without esophagitis Qualified Code(s): K21.9 - Gastro- esophageal reflux disease without esophagitis
[2023-06-27 11:48] LABS: Basophils # (auto) 0.04 K/uL (0.00-0.20); Basophils % (auto) 0.5 %; Eosinophils # (auto) 0.02 K/uL (0.00-0.50); Eosinophils % (auto) 0.2 %; Hematocrit (blood only) 34.4 % (37.0-47.0); Hemoglobin 11.4 g/dl (12.0-16.0); Immature Granulocytes # (auto) 0.03 K/uL (0.01-0.20); Immature Granulocytes % (auto) 0.4 %; Lymphocytes # (auto) 1.82 K/uL (1.20-3.40); Lymphocytes % (auto) 21.3 %; Mean Corpuscular Hemoglobin 30.2 pg (25.0-34.0); Mean Corpuscular Hgb Conc 33.1 g/dL (32.0-36.0); Mean Corpuscular Volume 91.2 fL (80.0-100.0); Mean Platelet Volume 11.3 fL (9.4-12.4); Monocytes # (auto) 0.48 K/uL (0.11-0.59); Monocytes % (auto) 5.6 %; Neutrophils # (auto) 6.17 K/uL (1.40-6.50); Platelet Count 184 K/uL (130-400); RDW Coefficient of Variation 13.3 % (11.5-14.5); RDW Standard Deviation 44.1 fL (36.4-46.3); Red Blood Count 3.77 M/uL (4.20-5.40); White Blood Count 8.56 K/ul (4.8-10.8)
[2023-06-27] MEDS: ACETAMINOPHEN 1,000 MG/100 ML VIAL IV STA (13:13)
--- NOTE | 2023-06-27 13:51 | Electrocardiogram Report ---
Test Reason : Blood Pressure : / mmHG Vent. Rate : 097 BPM Atrial Rate : 097 BPM P-R Int : 146 ms QRS Dur : 076 ms QT Int : 364 ms P-R-T Axes : 041 058 043 degrees QTc Int : 462 ms Normal sinus rhythm Normal ECG When compared with ECG of 17-NOV-2022 11:58, Nonspecific T wave abnormality now evident in Inferior leads Confirmed by Linden Mccurdy ([id number]) on 06/27/2023 1:51:36 PM Referred By: Dinorah Barrios Confirmed By:Linden Mccurdy
[2023-06-27] MEDS: MoRPHine SULFATE 2 MG/ML CARP IV PRN (15:05)
[2023-06-27] MEDS ORDERED: GLUCOSE 10 TAB/TUBE PO PRN (15:57)
[2023-06-27] MEDS ORDERED: GLUCOSE 40% GEL 15 GM TUBE PO PRN (15:57)
[2023-06-27] MEDS ORDERED: CARBOHYDRATES FOR HYPOGLYCEMIA PO PRN (15:57)
[2023-06-27] MEDS ORDERED: GLUCAGON FOR INJ 1 MG VIAL SQ PRN (15:57)
[2023-06-27] MEDS ORDERED: DEXTROSE 50% 50 ML SYRINGE IV PRN (15:57)
--- NOTE | 2023-06-27 16:26 | Communication Note ---
Date of Service: June 27, 2023 Imaging reviewed, plan for left hip hemiarthroplasty Wednesday 06/28. Will need to be NPO at [facility] and hold dvt PPx for surgery.
[2023-06-27] MEDS ORDERED: INSULIN ASPART PER UNIT CHARGE SC SCH (16:30)
[2023-06-27] MEDS: QUEtiapine FUMARATE 100 MG TABLET PO SCH (17:00)
[2023-06-27] MEDS: INSULIN ASPART PER UNIT CHARGE SC SCH (17:03)
[2023-06-27] MEDS: SODIUM CHLORIDE 0.9% 1,000 ML IV SCH (17:50)
--- NOTE | 2023-06-27 18:20 | XRay Report ---
XR chest 1V portable HISTORY: Left hip fracture. preop COMPARISON: Chest 03/20/2023. FINDINGS: No pneumothorax. No pleural effusions. No focal lung consolidations to suggest a pneumonia. No evidence for pulmonary edema. The heart is top normal in size. There are calcifications within th e aortic knob. IMPRESSION: No significant change compared to the prior study. No acute process. ACT 112: Negative or not required by law. Electronically signed by: Efe Bonner M.D. 06/27/2023 6:19 PM
[2023-06-27] MEDS: HEPARIN SOD 5,000 UNIT/0.5 ML VIAL SQ ONE (19:38)
[2023-06-27] MEDS ORDERED: HEPARIN SOD 5,000 UNIT/0.5 ML VIAL SQ SCH (21:00)
[2023-06-27] MEDS: MONTELUKAST SODIUM 10 MG TABLET PO SCH (21:34)
[2023-06-27] MEDS: FERROUS SULFATE 325 MG TAB PO SCH (21:34)
[2023-06-27] MEDS: DOCUSATE SODIUM 100 MG CAP PO SCH (21:35)
[2023-06-28] MEDS: LEVOTHYROXINE SODIUM 88 MCG TABLET PO SCH (05:51)
[2023-06-28] MEDS: traMADol HCL 50 MG TABLET PO PRN (07:33)
[2023-06-28] MEDS: PANTOprazole 40 MG TAB PO SCH (07:34)
[2023-06-28] MEDS: ESCITALOPRAM OXALATE 20 MG TAB PO SCH (07:34)
[2023-06-28] MEDS: ATENOLOL 25 MG TABLET PO SCH (07:34)
--- NOTE | 2023-06-28 14:19 | Hospitalist Progress Note ---
Date of Service June 28, 2023 Assessment & Plan (1) Closed hip fracture: Plan 78-year-old lady with PMH of advanced dementia, T2DM insulin requiring, breast cancer, GERD, PUD, depression, asthma, gout, hypercholesterolemia presented to the ED 06/27 from residential with refusal to ambulate after an unwitnessed fall. She was noted to have mildly displaced left femoral neck fracture at ED. At baseline, patient is relatively mobile at the residential though not always compliant with recommended assistive devices. She is being managed for the following: Left displaced femoral neck fracture: Patient came in with fall and refusal to ambulate Admitting CT head and CXR with no acute finding. Admitting hip x-ray with mildly displaced left femoral neck fracture. Pain management, bowel regimen. Orthopedic on board, plan for surgical repair Fall precaution. Continue IV fluid, delirium precaution. High risk for delirium given advanced dementia and hip fracture in the setting of hospitalization. Eventual PT evaluation but pending decision on possible surgery Other chronic medical conditions: Continue with/resume home meds as and when able T2DM, insulin requiring: Sliding scale insulin while in hospital. On insulin and Trulicity at home. Dementia with behavioral disturbance: Per daughter, patient with advanced dementiadoes not recognize family/not oriented. Fall precaution, delirium precaution, may need one-to-one depending on hospital course. Hypothyroidism: Continue home levothyroxine Depression: Continue home meds as able Benign essential hypertension: Continue home atenolol, fairly under control. Acid reflux disease: Continue home PPI therapy Code status: DNR/DNI DVT Prophylaxis: SCDs for now. Chemo Px once bleeding risk deemed minimal per ortho Sx. Admission and Anticipated Discharge Date Admission Date: June 27, 2023 Subjective Patient was seen and examined at bedside. Patient was lying in bed, on room air, not in any acute distress. Patient is demented at baseline, incomprehensible speech, ROS not able. Is NPO for orthopedic sx later in the day. on ivf. Physical Exam Physical Exam: General: awake, no acute distress but moaning at times HEENT: no scleral icterus, dry oral mucosa Neck: trachea midline Heart: RRR Lungs: CTA bilaterally Abdomen: soft, NT, +BS Extremities: no pedal edema, LLE externally rotated and shortened. Skin: no jaundice Neurologic: aphasia, not oriented to place or time, unclear if oriented to person Results & Data Results & Data Vital Signs (Past 12 Hours) Vital Signs Temp Pulse Resp BP Pulse Ox O2 Del Method 06/28/23 07:40 36.6 C 84 16 130/78 96 Room Air (1) Closed hip fracture Encounter type: initial encounter Laterality: left Qualified Code(s): S72.002A - Fracture of unspecified part of neck of left femur, initial encounter for closed fracture
[2023-06-28] MEDS: ceFAZolin 2000MG 2,000 MG/15 ML SYR IV ONE (14:44)
--- NOTE | 2023-06-28 14:55 | Anesthesiology Consultation ---
Date of Service June 28, 2023 Assessment & Plan (1) Encounter for pre-operative examination: Chart Review Chart Review: Acceptable Risk for Surgery and Patient NOT seen in Pre Admission Testing Consults Requested none History Surgery Operation Date: 06/28/23 10:40 Proposed Procedures p Left Hip Hemiarthroplasty - Sánchez Sorenson, Height/Weight Weight: 64.9 kg Allergies Allergy/AdvReac Type Severity Reaction Status Date / Time clams Allergy Unknown Unknown Verified 04/19/22 16:07 iodine Allergy Unknown Unknown Verified 04/19/22 16:07 Sulfa (Sulfonamide Allergy Unknown Unknown Verified 04/19/22 16:07 Antibiotics) Medications Home Medications Medication Instructions Recorded Confirmed Last Taken escitalopram oxalate 20 mg tablet 20 mg PO DAILY #90 tabs 09/05/20 06/27/23 08/06/21 atenolol 25 mg tablet 25 mg PO DAILY #90 tabs 02/17/21 06/27/23 08/06/21 ferrous sulfate 325 mg (65 mg 325 mg PO BID 07/21/21 06/27/23 08/06/21 iron) tablet acetaminophen 325 mg tablet 975 mg PO Q6 PRN Fever Or Pain 07/24/21 06/27/23 Unknown montelukast 10 mg tablet 10 mg PO HS 07/24/21 06/27/23 08/06/21 omeprazole 20 mg capsule,delayed 20 mg PO DAILY 07/24/21 06/27/23 08/06/21 release sennosides 8.6 mg capsule (senna) 17.2 mg PO .EVERY OTHER DAY PRN 07/24/21 06/27/23 Unknown Constipation dulaglutide 1.5 mg/0.5 mL 1.5 mg subcut WK 08/07/21 06/27/23 Unknown subcutaneous pen injector (Trulicity) insulin glargine 100 unit/mL (3 10 unit (0.1 mL) subcut HS #0 mL 08/07/21 06/27/23 08/06/21 mL) subcutaneous pen (Lantus Solostar U-100 Insulin) lorazepam 0.5 mg tablet 0.5 mg PO Q8 PRN Anxiety 04/19/22 06/27/23 Unknown quetiapine 100 mg tablet 100 mg PO TID 04/19/22 06/27/23 Unknown levothyroxine 88 mcg tablet 88 mcg PO DAILY 06/27/23 06/27/23 Unknown magnesium hydroxide 400 mg/5 mL 2,400 mg PO DAILY PRN Constipation 06/27/23 06/27/23 Unknown oral suspension (Milk of Magnesia) naproxen sodium 220 mg tablet 220 mg PO BID PRN Pain 06/27/23 06/27/23 Unknown nystatin 100,000 unit/gram topical 1 applic topical BID PRN flare 06/27/23 06/27/23 Unknown cream nystatin 100,000 unit/gram topical 1 applic topical TID PRN redness 06/27/23 06/27/23 Unknown powder in abdominal folds tramadol 50 mg tablet 50 mg PO TID PRN Pain 06/27/23 06/27/23 Unknown Active Medications Generic Name Dose Route Start Last Admin Trade Name Freq PRN Reason Stop Dose Admin Atenolol 25 mg 06/28/23 09:00 06/28/23 07:34 Atenolol 25 Mg Tablet PO 07/28/23 08:59 25 mg DAILY DUNG Administration Docusate Sodium 100 mg 06/27/23 21:00 06/28/23 07:35 Docusate Sodium 100 Mg Cap PO 07/27/23 20:59 100 mg BID DUNG Administration Escitalopram Oxalate 20 mg 06/28/23 09:00 06/28/23 07:34 Escitalopram Oxalate 20 Mg Tab PO 07/28/23 08:59 20 mg DAILY DUNG Administration Ferrous Sulfate 325 mg 06/27/23 21:00 06/28/23 07:34 Ferrous Sulfate 325 Mg Tab PO 07/27/23 20:59 325 mg BID DUNG Administration Sodium Chloride 1,000 mls @ 80 mls/hr 06/27/23 17:45 06/28/23 05:50 Nss IV 07/27/23 17:44 80 mls/hr .[id number] DUNG Administration Insulin Aspart 0 units 06/27/23 18:00 06/28/23 12:03 Insulin Aspart Per Unit Charge SC 07/27/23 17:59 Not Given Q6 DUNG Levothyroxine Sodium 88 mcg 06/28/23 06:30 06/28/23 05:51 Levothyroxine Sodium 88 Mcg Tablet PO 07/28/23 06:29 88 mcg DAILYBB DUNG Administration Montelukast Sodium 10 mg 06/27/23 21:00 06/27/23 21:34 Montelukast Sodium 10 Mg Tablet PO 07/27/23 20:59 10 mg HS DUNG Administration Morphine Sulfate 2 mg 06/27/23 12:11 06/28/23 14:41 Morphine Sulfate 2 Mg/Ml Carp IV 07/11/23 12:10 2 mg Q4H PRN Administration Pain Pantoprazole Sodium 40 mg 06/28/23 09:00 06/28/23 07:34 Pantoprazole 40 Mg Tab PO 07/28/23 08:59 40 mg QAM DUNG Administration Quetiapine Fumarate 100 mg 06/27/23 16:15 06/28/23 13:35 Quetiapine Fumarate 100 Mg Tablet PO 07/27/23 16:14 100 mg TID DUNG Administration Tramadol HCl 50 mg 06/27/23 15:57 06/28/23 07:33 Tramadol Hcl 50 Mg Tablet PO 07/27/23 15:56 50 mg TID PRN Administration Pain Past Medical History Medical History Dementia with behavioral disturbance Vitamin D deficiency Anemia due to chronic kidney disease Diabetes Osteopenia Obstructive sleep apnea Nephrolithiasis Lumbar stenosis with neurogenic claudication Hypothyroidism Hyperlipidemia History of breast cancer Gout Depression CKD (chronic kidney disease), stage III Benign essential hypertension Asthma Anxiety Allergic rhinitis Adenomatous colon polyp Acid reflux disease Past Family History Family History Mother Breast cancer Coronary heart disease Diabetes Myocardial infarction Aunt Breast cancer Brother Colorectal cancer Grandmother Diabetes Father Myocardial infarction Sister Myocardial infarction Brother Myocardial infarction Denies family history of Ovarian cancer Prostate cancer Past Surgical History Surgical History S/P ureteral stent placement H/O breast biopsy History of salpingo-oophorectomy S/P hysterectomy H/O dilation and curettage H/O colonoscopy 01/22/2016 repeat 5yrs History of cystoscopy S/P breast lumpectomy Social History Smoking Status: Unknown if ever smoked Alcohol type: wine Physical Exam Vital Signs Last Vital Signs Temp 98.1 F 06/28/23 14:50 Pulse 78 06/28/23 14:50 Resp 16 06/28/23 14:50 BP 145/75 H 06/28/23 14:50 Pulse Ox 96 02/26/24 14:50 O2 Del Method Room Air 06/28/23 14:50 Testing Laboratory Results 06/27/23 11:10 06/27/23 08:49 06/28/23 06/28/23 11:52 05:56 POC Glucose 113 H 109 H Electrocardiogram Date: 06/27/23 Findings: + NSR @ Chest X-Ray Date: 06/27/23 Findings: + NAD
[2023-06-28] MEDS ORDERED: PROPOFOL IV EMULSION 10 MG/ML 20 ML VIAL IV ONE (14:58)
[2023-06-28] MEDS ORDERED: GLYCOPYRROLATE 0.2 MG/ML VIAL ONE (14:58)
[2023-06-28] MEDS ORDERED: MIDAZOLAM HCL 1 MG/ML 2ML VIAL ONE (14:58)
[2023-06-28] MEDS ORDERED: DEXAMETHASONE SOD INJ 4 MG/ML VIAL ONE (14:58)
[2023-06-28] MEDS ORDERED: ROCURONIUM BROMIDE 10 MG/ML 5 ML VIAL IV ONE (14:58)
[2023-06-28] MEDS ORDERED: fentaNYL citrate PF 100 MCG/2 ML VIAL ONE (14:58)
[2023-06-28] MEDS ORDERED: LIDOCAINE 2% 2 ML VIAL/AMP(20MG/ML) INFIL ONE (14:58)
[2023-06-28] MEDS ORDERED: ONDANSETRON INJ 2 MG/ML 2 ML VIAL ONE (14:58)
[2023-06-28] MEDS: LACTATED RINGER'S 1,000 ML IV SCH (16:11)
--- NOTE | 2023-06-28 16:33 | History & Physical Bridge Note ---
Date of Service June 28, 2023 History & Physical Bridge Note I have examined the patient, reviewed the History & Physical and in the interval since the performance of the History & Physical I have noted the following changes of clinical significance: no changes noted. Met with the patient had a discussion with her daughter who is power of assistant prosecuting attorney regarding risk benefits potential complications of left hip hemiarthroplasty. These include but are not limited to: Infection, neurovascular injury, DVT, fracture, dislocation, leg length and need for future surgery. After reviewing these they elected to proceed with surgical intervention and telephone consent was obtained.
[2023-06-28] MEDS ORDERED: SUGAMMADEX SODIUM 200 MG/2 ML VIAL IV ONE (17:46)
[2023-06-28] MEDS ORDERED: ATROPINE SULFATE 0.1 MG/ML 10ML SYR IV PRN (17:59)
[2023-06-28] MEDS ORDERED: fentaNYL citrate PF 100 MCG/2 ML VIAL IV PRN (17:59)
[2023-06-28] MEDS ORDERED: ePHEDrine sulfate 50 MG/ML AMP IV PRN (17:59)
[2023-06-28] MEDS ORDERED: ONDANSETRON INJ 2 MG/ML 2 ML VIAL IV PRN (17:59)
[2023-06-28] MEDS: BUPIVACAINE 0.5 % 5 MG/1 ML MPF 30ML VIAL ONE (18:07)
--- NOTE | 2023-06-28 18:07 | Post Operative Brief Note ---
Immediate Post Op Note v1 Date of Surgery June 28, 2023 Pre & Post Diagnosis Operation Date: 06/28/23 10:40 Pre-Op Diagnosis: LEFT HIP FRACTURE Post-Op Diagnosis: LEFT HIP FRACTURE I identified the patient and participated in the time-out.: Yes Procedure Operation Date: 06/28/23 10:40 Actual Procedures p Left Hip Hemiarthroplasty(Left) - Sánchez Sorenson DO Surgeon Sánchez Sorenson DO Circulation Man none Estimated Blood Loss 100 Findings Consistent with Post-Op Diagnosis see dictation Complications none
--- NOTE | 2023-06-28 18:39 | Anesthesiology Progress Note ---
Date of Service June 28, 2023 Anesthesia Post Procedure Vital Signs Vital Signs: Temp Pulse Pulse Resp BP BP Pulse Ox 06/28/23 18:30 92 H 18 128/105 H 96 06/28/23 18:20 94 H 17 119/79 91 06/28/23 18:13 36.5 C 87 13 106/89 93 06/28/23 15:36 36.9 C 81 20 161/94 H 93 06/28/23 14:50 36.7 C 78 16 145/75 H 96 06/28/23 07:40 36.6 C 84 16 130/78 96 06/27/23 19:46 36.7 C 89 20 113/61 95 O2 Del Method O2 Flow Rate 06/28/23 18:30 Oxymask 4 06/28/23 18:20 Oxymask 4 06/28/23 18:13 Oxymask 4 06/28/23 15:36 Room Air 06/28/23 14:50 Room Air 06/28/23 07:40 Room Air 06/27/23 19:46 Room Air Transfer of Care Handoff Completed per policy Notes Mental Status: see notes below (patient is at baseline mental status) Patient Amnestic to Procedure: Yes Nausea / Vomiting: adequately controlled Pain: adequately controlled Airway Patency, RR, SpO2: stable & adequate BP & HR: stable & adequate Hydration State: stable & adequate Anesthetic Complications: no major complications apparent
[2023-06-28] MEDS ORDERED: OLANZapine 10 MG/2.1 ML SDV IM PRN (19:22)
[2023-06-28] MEDS: LORazepam 0.5 MG TAB PO PRN (19:58)
[2023-06-28] MEDS: SODIUM CHLORIDE 0.9% 1,000 ML IV SCH (20:00)
--- NOTE | 2023-06-28 20:17 | XRay Report ---
XR hip LT 1V CLINICAL HISTORY: PACU - Post Surgical TECHNIQUE: 1 view of the left hip and single frontal view of the pelvis were obtained. Comparison: Comparison is made to pelvis radiograph 12/11/2022 FINDINGS: Patient is status post total hip arthroplasty with expected postsurgical changes including soft tissu e swelling and subcutaneous emphysema. IMPRESSION: Expected postoperative appearance status post placement of total hip arthroplasty. ACT 112: Negative or not required by law. Electronically signed by: Trevor Caba M.D. 06/28/2023 8:15 PM
--- NOTE | 2023-06-28 20:52 | Operative Report ---
Post Operative Report Pre & Post Diagnosis Operation Date: 06/28/23 10:40 Pre-Op Diagnosis: LEFT HIP FRACTURE Post-Op Diagnosis: LEFT HIP FRACTURE I identified the patient and participated in the time-out.: Yes Procedure Operation Date: 06/28/23 10:40 Actual Procedures p Left Hip Hemiarthroplasty(Left) - Sánchez Sorenson DO Surgeon Sánchze Sorenson DO Senior Advocate none Estimated Blood Loss 100 Findings Consistent with Post-Op Diagnosis see dictation Specimens femoral head Complications none Indications 78-year-old female presenting after sustaining a ground-level nursing facility. Patient was refusing to ambulate and seek emergency department where radiographs were obtained demonstrating displaced left femoral neck fracture. She is a medical service and orthopedics was consulted for operative management. I met with the patient preoperatively and had a lengthy discussion with her daughter who is power of sports attorney regarding risk benefits potential patient left hip hemiarthroplasty. After reviewing these they elected to proceed with surgical invention and telephone consent was obtained. Description of Procedure Implants: Biomet Taperloc stem 11 mm x 142 mm standard offset, 28 mm cobalt ch fatuma head, 43 mm bipolar head procedure: Patient was appropriately marked and identified in the preoperative holding area. They were then taken back to the operative suite where they received antibiotics per protocol as well as general anesthesia. Patient was then positioned in the lateral decubitus position with the left hip facing upwards. The patient was then prepped and draped in the standard orthopedic fashion and timeout was then performed. A posterior lateral incision overlying the trochanter was then made with a scalpel. Electrocautery was used to dissect through the subcutaneous tissue down to the IT band and gluteal fascia which was then split in line with the incision. A Charnley retractor was then placed. Piriformis was then identified and tagged and reflected off the posterior capsule. A T capsulotomy was then performed. A gush of fracture hematoma was noted. Femoral head was then removed using a 10. A femoral neck osteotomy was then made approximately 1 fingerbreadth above the lesser trochanter. Any residual fracture fragments were then removed. Sizing was then performed and a 43 mm head was noted to have excellent suction fit. Attention was then turned to preparation of the thumb canal. Starting with a box osteotome followed by canal finder reamer the canal was then sequentially broached up to a size 11 stem. Trialing was then performed with a standard offset neck and 43 mm +0 bipolar head. The hip was then successfully reduced. Range of motion as well as leg length and stability were assessed and noted to be satisfactory. At this point the hip was then successfully dislocated. All trial components were removed. Hip was then copiously irrigated and the acetabulum was checked for any interposing soft tissue. A size 11 stem was then impacted into the femoral canal under visualization of the calcar. A 43 mm +0 bipolar head was then padded onto the trunnion and the hip was then successfully reduced. Once again range of motion leg lengths and stability were all assessed and noted to be satisfactory. It was then copiously irrigated with dilute Betadine solution followed by normal saline solution. Capsulotomy was then closed in a [id number] fashion using 1-0 Ethibond suture. Charnley retractor was then removed and IT band fascia was closed using combination of 1-0 Ethibond suture followed by running 0 STRATAFIX suture. 30 cc of local anesthetic was then injected into the subcutaneous tissues. Dilute Betadine solution followed by normal saline solution were then used to copiously irrigate the subcutaneous tissues. 2-0 Vicryl was used to close the deep subcutaneous tissues followed by running 2-0 STRATAFIX for the superficial tissues. [place] were then used to close the skin. Sterile Silverlon dressing was then placed. The patient tolerated the procedure well was taken recovery room in hemodynamically stable condition. I attest to the content of the Intraoperative Record and any orders documented therein. Any exceptions are noted below.
--- NOTE | 2023-06-28 20:55 | Orthopedic Consultation ---
Date of Consultation June 28, 2023 Assessment & Plan (1) Closed hip fracture: 78-year-old female with displaced femoral neck fracture -Pain control -Bedrest -N.p.o. -Medical management -Plan for left hip hemiarthroplasty on 06/28 History of Present Illness Reason for Consultation: Left femoral neck fracture Attending Physician: Adam Castellanos MD History of Present Illness 78-year-old female presenting after sustaining unwitnessed ground-level fall at her nursing facility with chief complaint of inability to ambulate and pain. Emergency department radiographs were obtained demonstrating displaced left femoral neck fracture. Patient was admitted to medical service and orthopedics was consulted for operative management. Allergies Allergy/AdvReac Type Severity Reaction Status Date / Time clams Allergy Unknown Unknown Verified 04/19/22 16:07 iodine Allergy Unknown Unknown Verified 04/19/22 16:07 Sulfa (Sulfonamide Allergy Unknown Unknown Verified 04/19/22 16:07 Antibiotics) Home Medications Medication Instructions Recorded Confirmed Type escitalopram oxalate 20 mg tablet 20 mg PO DAILY #90 tabs 09/05/20 06/27/23 Rx atenolol 25 mg tablet 25 mg PO DAILY #90 tabs 02/17/21 06/27/23 Rx ferrous sulfate 325 mg (65 mg 325 mg PO BID 07/21/21 06/27/23 History iron) tablet acetaminophen 325 mg tablet 975 mg PO Q6 PRN Fever Or Pain 07/24/21 06/27/23 History montelukast 10 mg tablet 10 mg PO HS 07/24/21 06/27/23 History omeprazole 20 mg capsule,delayed 20 mg PO DAILY 07/24/21 06/27/23 History release sennosides 8.6 mg capsule (senna) 17.2 mg PO .EVERY OTHER DAY PRN 07/24/21 06/27/23 History Constipation dulaglutide 1.5 mg/0.5 mL 1.5 mg subcut WK 08/07/21 06/27/23 History subcutaneous pen injector (Trulicity) insulin glargine 100 unit/mL (3 10 unit (0.1 mL) subcut HS #0 mL 08/07/21 06/27/23 Rx mL) subcutaneous pen (Lantus Solostar U-100 Insulin) lorazepam 0.5 mg tablet 0.5 mg PO Q8 PRN Anxiety 04/19/22 06/27/23 History quetiapine 100 mg tablet 100 mg PO TID 04/19/22 06/27/23 History levothyroxine 88 mcg tablet 88 mcg PO DAILY 06/27/23 06/27/23 History magnesium hydroxide 400 mg/5 mL 2,400 mg PO DAILY PRN Constipation 06/27/23 06/27/23 History oral suspension (Milk of Magnesia) naproxen sodium 220 mg tablet 220 mg PO BID PRN Pain 06/27/23 06/27/23 History nystatin 100,000 unit/gram topical 1 applic topical BID PRN flare 06/27/23 06/27/23 History cream nystatin 100,000 unit/gram topical 1 applic topical TID PRN redness 06/27/23 06/27/23 History powder in abdominal folds tramadol 50 mg tablet 50 mg PO TID PRN Pain 06/27/23 06/27/23 History Patient History Medical History Dementia with behavioral disturbance Vitamin D deficiency Anemia due to chronic kidney disease Diabetes Osteopenia Obstructive sleep apnea Nephrolithiasis Lumbar stenosis with neurogenic claudication Hypothyroidism Hyperlipidemia History of breast cancer Gout Depression CKD (chronic kidney disease), stage III Benign essential hypertension Asthma Anxiety Allergic rhinitis Adenomatous colon polyp Acid reflux disease Surgical History S/P ureteral stent placement H/O breast biopsy History of salpingo-oophorectomy S/P hysterectomy H/O dilation and curettage H/O colonoscopy 01/22/2016 repeat 5yrs History of cystoscopy S/P breast lumpectomy Family History Mother Breast cancer Coronary heart disease Diabetes Myocardial infarction Aunt Breast cancer Brother Colorectal cancer Grandmother Diabetes Father Myocardial infarction Sister Myocardial infarction Brother Myocardial infarction Denies family history of Ovarian cancer Prostate cancer Social History Smoking Status: Unknown if ever smoked Second Hand Exposure: Yes (Both parents smoked); Preferred Language: Kittitian Communication Ability: Effective Communication Ability Comment: pt non verbal; hx of advanced dementia Visual Impairment: Limited Hearing Ability: Normal Conduit Worker Required: No Beliefs That Will Affect Care: None marital status: / Current Living Situation: Custodial current occupational status: retired How many Children do You have: 1 Feels Safe at Home: Yes Childhood Exposure to Second-Hand Smoke: Yes (Both parents smoked ) Diet: regular Diet Comment: Regular diet caffeine: No during the past year weight has: remained stable Dental Care, Regularly: No Physical Activity Frequency: Does not Exercise Seatbelt Use: always Sunscreen Use: No Do you think of yourself as: straight/heterosexual Assistive Devices: None Physical Exam Constitutional: No acute distress, oriented to self Musculoskeletal: Left lower extremity -shortened and internally rotated. Pain with logroll -Unable to fully assess neuromuscular ex am secondary to patient mental status. Does spontaneously move foot. -Palpable dorsalis pedis and posterior p ulses with brisk cap refill Results & Data Vital Signs (Past 12 Hours) Vital Signs Temp Pulse Pulse Resp BP BP Pulse Ox 06/28/23 20:43 37 C 90 16 98/61 L 92 06/28/23 19:30 36.8 C 85 18 132/95 94 06/28/23 19:00 36.8 C 91 H 20 115/72 95 06/28/23 18:40 37.1 C 90 12 127/62 100 06/28/23 18:30 92 H 18 128/105 H 96 06/28/23 18:20 94 H 17 119/79 91 06/28/23 18:13 36.5 C 87 13 106/89 93 06/28/23 15:36 36.9 C 81 20 161/94 H 93 06/28/23 14:50 36.7 C 78 16 145/75 H 96 O2 Del Method O2 Flow Rate 06/28/23 20:43 Room Air 06/28/23 19:30 Room Air 06/28/23 19:00 Room Air 06/28/23 18:40 Oxymask 4 06/28/23 18:30 Oxymask 4 06/28/23 18:20 Oxymask 4 06/28/23 18:13 Oxymask 4 06/28/23 15:36 Room Air 06/28/23 14:50 Room Air Diagnostic Findings displaced left femoral neck fracture (1) Closed hip fracture Encounter type: initial encounter Laterality: left Qualified Code(s): S72.002A - Fracture of unspecified part of neck of left femur, initial encounter for closed fracture
[2023-06-28] MEDS: ASPIRIN 81 MG ECTAB PO SCH (21:49)
[2023-06-28] MEDS: ceFAZolin 2000MG 2,000 MG/15 ML SYR IV SCH (23:58)
[2023-06-29] MEDS ORDERED: Nursing to Pharmacy Communication SCH (00:15)
[2023-06-29 07:18] LABS: Basophils # (auto) 0.02 K/uL (0.00-0.20); Basophils % (auto) 0.4 %; Immature Granulocytes # (auto) 0.02 K/uL (0.01-0.20); Immature Granulocytes % (auto) 0.4 %; Lymphocytes # (auto) 1.28 K/uL (1.20-3.40); Lymphocytes % (auto) 23.8 %; Mean Corpuscular Hemoglobin 30.5 pg (25.0-34.0); Mean Corpuscular Hgb Conc 32.1 g/dL (32.0-36.0); Mean Corpuscular Volume 94.9 fL (80.0-100.0); Mean Platelet Volume 11.9 fL (9.4-12.4); Monocytes # (auto) 0.45 K/uL (0.11-0.59); Monocytes % (auto) 8.4 %; Neutrophils # (auto) 3.61 K/uL (1.40-6.50); Platelet Count 145 K/uL (130-400); RDW Coefficient of Variation 13.5 % (11.5-14.5); RDW Standard Deviation 46.6 fL (36.4-46.3); Red Blood Count 2.95 M/uL (4.20-5.40); White Blood Count 5.38 K/ul (4.8-10.8)
[2023-06-29 07:29] LABS: BUN Creatinine Ratio 20.8 (10-20); Calcium 8.2 mg/dl (8.6-10.3); Creatinine Clr Calc Pharmacy 38.6 ml/min; Est GFR (African American) 61.7 ml/min; Est GFR (Non-African American) 53.3 ml/min; Potassium 4.7 mmol/L (3.5-5.1)
[2023-06-29] MEDS: INSULIN ASPART PER UNIT CHARGE SC SCH (08:12)
[2023-06-29] MEDS: CHOLECALCIFEROL 125 MCG (5,000 UNITS) TAB PO SCH (12:57)
--- NOTE | 2023-06-29 14:19 | Hospitalist Progress Note ---
Date of Service June 29, 2023 Assessment & Plan (1) Closed hip fracture: Plan 78-year-old lady with PMH of advanced dementia, T2DM insulin requiring, breast cancer, GERD, PUD, depression, asthma, gout, hypercholesterolemia presented to the ED 06/27 from correction with refusal to ambulate after an unwitnessed fall. She was noted to have mildly displaced left femoral neck fracture at ED. At baseline, patient is relatively mobile at the correction though not always compliant with recommended assistive devices. She is being managed for the following: Left displaced femoral neck fracture: Patient came in with fall and refusal to ambulate Admitting CT head and CXR with no acute finding. Admitting hip x-ray with mildly displaced left femoral neck fracture. Pain management, bowel regimen. Orthopedic on board, s/p Left Hip Hemiarthroplasty(Left) - Sánchez Sorenson, DO 06/28. Fall precaution. Continue IV fluid, delirium precaution. Encourage PO intake. High risk for delirium given advanced dementia and hip fracture in the setting of hospitalization. PT/OT. Acute blood loss anemia: Likely perioperative blood loss and dilutional component. Preoperative hemoglobin of 11.4, postoperative 9.0. Continue to monitor H&H. CKD stage III: Baseline creatinine around 1.3-1.4. Stable. Other chronic medical conditions: Continue with/resume home meds as and when able T2DM, insulin requiring: Sliding scale insulin while in hospital. On insulin and Trulicity at home. Dementia with behavioral disturbance: Per daughter, patient with advanced dementiadoes not recognize family/not oriented. Fall precaution, delirium precaution, may need one-to-one depending on hospital course. Hypothyroidism: Continue home levothyroxine Depression: Continue home meds as able Benign essential hypertension: Continue home atenolol, fairly under control. Acid reflux disease: Continue home PPI therapy Code status: DNR/DNI DVT Prophylaxis: SCDs and aspirin BD. Dispo: PT/OT. CM to assist w/ dc plan. Admission and Anticipated Discharge Date Admission Date: June 27, 2023 Subjective Patient was seen and examined at bedside. Patient was lying in bed, on room air, not in any acute distress. Patient is demented at baseline, incomprehensible speech, ROS not able. s/p left hip repair 06/28. Physical Exam Physical Exam: General: awake, no acute distress but moaning at times HEENT: no scleral icterus, dry oral mucosa Neck: trachea midline Heart: RRR Lungs: CTA bilaterally Abdomen: soft, NT, +BS Extremities: no pedal edema, left hip w/ clean dressing wo soakage. Skin: no jaundice Neurologic: aphasia, not oriented to place or time, unclear if oriented to person Results & Data Results & Data Vital Signs (Past 12 Hours) Vital Signs Temp Pulse Pulse Resp BP BP Pulse Ox 06/29/23 07:48 36.6 C 80 16 137/77 94 06/29/23 07:35 06/29/23 07:29 36.6 C 93 H 16 95 06/29/23 04:08 36.9 C 87 16 105/69 98 O2 Del Method O2 Flow Rate 06/29/23 07:48 Room Air 06/29/23 07:35 Room Air 06/29/23 07:29 Room Air 06/29/23 04:08 Nasal Cannula 2 (1) Closed hip fracture Encounter type: initial encounter Laterality: left Qualified Code(s): S72.002A - Fracture of unspecified part of neck of left femur, initial encounter for closed fracture
[2023-06-30 08:54] LABS: Basophils # (auto) 0.07 K/uL (0.00-0.20); Basophils % (auto) 1.1 %; Eosinophils # (auto) 0.69 K/uL (0.00-0.50); Eosinophils % (auto) 11.2 %; Hematocrit (blood only) 27.2 % (37.0-47.0); Hemoglobin 8.7 g/dl (12.0-16.0); Immature Granulocytes # (auto) 0.02 K/uL (0.01-0.20); Immature Granulocytes % (auto) 0.3 %; Lymphocytes # (auto) 1.98 K/uL (1.20-3.40); Lymphocytes % (auto) 32.2 %; Mean Corpuscular Hemoglobin 30.5 pg (25.0-34.0); Mean Corpuscular Volume 95.4 fL (80.0-100.0); Mean Platelet Volume 11.6 fL (9.4-12.4); Monocytes # (auto) 0.54 K/uL (0.11-0.59); Monocytes % (auto) 8.8 %; Neutrophils # (auto) 2.85 K/uL (1.40-6.50); Neutrophils % (auto) 46.4 %; Platelet Count 140 K/uL (130-400); RDW Coefficient of Variation 13.4 % (11.5-14.5); RDW Standard Deviation 46.9 fL (36.4-46.3); Red Blood Count 2.85 M/uL (4.20-5.40); White Blood Count 6.15 K/ul (4.8-10.8)
[2023-06-30 09:14] LABS: Calcium 8.8 mg/dl (8.6-10.3); Creatinine Clr Calc Pharmacy 37.1 ml/min; Est GFR (African American) 58.9 ml/min; Est GFR (Non-African American) 50.8 ml/min; Magnesium 1.6 mg/dl (1.7-2.4); Phosphorus 2.7 mg/dl (2.5-4.9); Potassium 5.2 mmol/L (3.5-5.1)
--- NOTE | 2023-06-30 13:57 | Orthopedic Progress Note ---
Date of Service June 30, 2023 Assessment & Plan (1) Closed hip fracture: Plan: 78-year-old female status post left hip hemiarthroplasty postoperative day #2 As tolerated left lower extremity Posterior precautions Pain control DVT prophylaxis Medical management PT/OT Stable from orthopedic standpoint. We will sign off at this time. May follow- up as an outpatient in 10 to 14 days. Admission and Anticipated Discharge Date Admission Date: June 27, 2023 Subjective Patient seen and examined, resting in bed with restraints Physical Exam Constitutional: Oriented to self only. Musculoskeletal: Left lower extremity Dressing clean dry and intact Thigh soft and compressible Unable to participate in neuromuscular exam secondary to mental status. Patient does spontaneously move left lower extremity Palpable dorsalis and posterior tibial pulses Results & Data Vital Signs (Past 12 Hours) Vital Signs Temp Pulse Resp BP 06/30/23 08:40 36.6 C 62 14 137/92 (1) Closed hip fracture Encounter type: initial encounter Laterality: left Qualified Code(s): S72.002A - Fracture of unspecified part of neck of left femur, initial encounter for closed fracture
--- NOTE | 2023-06-30 15:01 | Hospitalist Progress Note ---
Date of Service June 30, 2023 Assessment & Plan (1) Closed hip fracture: Plan 78-year-old lady with PMH of advanced dementia, T2DM insulin requiring, breast cancer, GERD, PUD, depression, asthma, gout, hypercholesterolemia presented to the ED 06/27 from retirement with refusal to ambulate after an unwitnessed fall. She was noted to have mildly displaced left femoral neck fracture at ED. At baseline, patient is relatively mobile at the retirement though not always compliant with recommended assistive devices. She is being managed for the following: Left displaced femoral neck fracture: Patient came in with fall and refusal to ambulate Admitting CT head and CXR with no acute finding. Admitting hip x-ray with mildly displaced left femoral neck fracture. Pain management, bowel regimen. Orthopedic on board, s/p Left Hip Hemiarthroplasty(Left) - Sánchez Sorenson, DO 06/28. Fall precaution. Continue IV fluid, delirium precaution. Encourage PO intake. High risk for delirium given advanced dementia and hip fracture in the setting of hospitalization. PT/OT. Acute blood loss anemia: Likely perioperative blood loss and dilutional component. Preoperative hemoglobin of 11.4, postoperative 9.0. Continue to monitor H&H. CKD stage III: Baseline creatinine around 1.3-1.4. Stable. Other chronic medical conditions: Continue with/resume home meds as and when able T2DM, insulin requiring: Sliding scale insulin while in hospital. On insulin and Trulicity at home. Dementia with behavioral disturbance: Per daughter, patient with advanced dementiadoes not recognize family/not oriented. Fall precaution, delirium precaution, may need one-to-one depending on hospital course. Hypothyroidism: Continue home levothyroxine Depression: Continue home meds as able Benign essential hypertension: Continue home atenolol, fairly under control. Acid reflux disease: Continue home PPI therapy Code status: DNR/DNI DVT Prophylaxis: SCDs and aspirin BD. Dispo: PT/OT. CM to assist w/ dc plan. Admission and Anticipated Discharge Date Admission Date: June 27, 2023 Subjective Patient was seen and examined at bedside. Patient was lying in bed, on room air, not in any acute distress. Patient is demented at baseline, incomprehensible speech, ROS not able. s/p left hip repair 06/28. Pt on soft mittens as she tries to get her lines out. K slightly elevated today, will put her on low K diet, labs in AM. Per RN, eating some, not great. No new issues overnight, at times she is more confused and combative. Physical Exam Physical Exam: General: awake, no acute distress but incomprehensible speech at times HEENT: no scleral icterus, dry oral mucosa Neck: trachea midline Heart: RRR Lungs: CTA bilaterally Abdomen: soft, NT, +BS Extremities: no pedal edema, left hip w/ clean dressing wo soakage. Skin: no jaundice Neurologic: aphasia, not oriented to place or time, unclear if oriented to person Results & Data Results & Data Vital Signs (Past 12 Hours) Vital Signs Temp Pulse Resp BP 06/30/23 08:40 36.6 C 62 14 137/92 (1) Closed hip fracture Encounter type: initial encounter Laterality: left Qualified Code(s): S72.002A - Fracture of unspecified part of neck of left femur, initial encounter for closed fracture
[2023-06-30] MEDS: MAGNESIUM SULFATE / D5W 1 GM/100 ML BAG IV SCH (15:32)
[2023-06-30] MEDS: SODIUM CHLORIDE 0.45 % 1,000 ML IV SCH (15:33)
[2023-07-01] MEDS ORDERED: POLYETHYLENE (MIRALAX) 17 GM PACK PO PRN (08:43)
[2023-07-01] MEDS ORDERED: bisacodyL 10 MG SUPP PR PRN (08:43)
[2023-07-01] MEDS: bisacodyL 10 MG SUPP PR STA (09:10)
[2023-07-01 09:55] LABS: Magnesium 1.8 mg/dl (1.7-2.4)
[2023-07-01 10:02] LABS: BUN Creatinine Ratio 18.8 (10-20); Creatinine Clr Calc Pharmacy 48.7 ml/min; Est GFR (African American) 81.8 ml/min; Est GFR (Non-African American) 70.6 ml/min; Phosphorus 2.8 mg/dl (2.5-4.9)
[2023-07-01 10:13] LABS: Hematocrit (blood only) 26.8 % (37.0-47.0); Hemoglobin 8.7 g/dl (12.0-16.0); Mean Corpuscular Hemoglobin 30.2 pg (25.0-34.0); Mean Corpuscular Hgb Conc 32.5 g/dL (32.0-36.0); Mean Corpuscular Volume 93.1 fL (80.0-100.0); Mean Platelet Volume 11.5 fL (9.4-12.4); Platelet Count 141 K/uL (130-400); RDW Coefficient of Variation 13.4 % (11.5-14.5); RDW Standard Deviation 45.4 fL (36.4-46.3); Red Blood Count 2.88 M/uL (4.20-5.40); White Blood Count 5.53 K/ul (4.8-10.8)
--- NOTE | 2023-07-01 15:33 | Hospitalist Progress Note ---
Date of Service July 01, 2023 Assessment & Plan (1) Closed hip fracture: Plan 78-year-old lady with PMH of advanced dementia, T2DM insulin requiring, breast cancer, GERD, PUD, depression, asthma, gout, hypercholesterolemia presented to the ED 06/27 from skilled nursing with refusal to ambulate after an unwitnessed fall. She was noted to have mildly displaced left femoral neck fracture at ED. At baseline, patient is relatively mobile at the skilled nursing though not always compliant with recommended assistive devices. She is being managed for the following: Left displaced femoral neck fracture: Patient came in with fall and refusal to ambulate Admitting CT head and CXR with no acute finding. Admitting hip x-ray with mildly displaced left femoral neck fracture. Pain management, bowel regimen. Orthopedic on board, s/p Left Hip Hemiarthroplasty(Left) - Sánchez Sorenson, DO 06/28. Fall precaution. Continue IV fluid, delirium precaution. Encourage PO intake. High risk for delirium given advanced dementia and hip fracture in the setting of hospitalization. PT/OT. Acute blood loss anemia: Likely perioperative blood loss and dilutional component. Preoperative hemoglobin of 11.4, postoperative 9.0. Continue to monitor H&H. CKD stage III: Baseline creatinine around 1.3-1.4. Stable. Other chronic medical conditions: Continue with/resume home meds as and when able T2DM, insulin requiring: Sliding scale insulin while in hospital. On insulin and Trulicity at home. Dementia with behavioral disturbance: Per daughter, patient with advanced dementiadoes not recognize family/not oriented. Fall precaution, delirium precaution, may need one-to-one depending on hospital course. Hypothyroidism: Continue home levothyroxine Depression: Continue home meds as able Benign essential hypertension: Continue home atenolol, fairly under control. Acid reflux disease: Continue home PPI therapy Code status: DNR/DNI DVT Prophylaxis: SCDs and aspirin BD. Dispo: PT/OT. CM to assist w/ dc plan. can dc to rehab. Admission and Anticipated Discharge Date Admission Date: June 27, 2023 Subjective Patient was seen and examined at bedside. Patient was lying in bed, on room air, not in any acute distress. Patient is demented at baseline, incomprehensible speech, ROS not able. s/p left hip repair 06/28. Pt on soft mittens as she tries to get her lines out. Per RN, appetite slightly better today, no issues overnight. moved bowel. Physical Exam Physical Exam: General: awake, no acute distress but incomprehensible speech at times HEENT: no scleral icterus, dry oral mucosa Neck: trachea midline Heart: RRR Lungs: CTA bilaterally Abdomen: soft, NT, +BS Extremities: no pedal edema, left hip w/ clean dressing wo soakage. Skin: no jaundice Neurologic: aphasia, not oriented to place or time, unclear if oriented to person Results & Data Results & Data Vital Signs (Past 12 Hours) Vital Signs Temp Pulse Resp BP Pulse Ox O2 Del Method 07/01/23 06:25 36.4 C L 63 18 118/80 100 Room Air (1) Closed hip fracture Encounter type: initial encounter Laterality: left Qualified Code(s): S72.002A - Fracture of unspecified part of neck of left femur, initial encounter for closed fracture
[2023-07-02 11:02] LABS: Hematocrit (blood only) 25.2 % (37.0-47.0); Hemoglobin 8.1 g/dl (12.0-16.0); Mean Corpuscular Hemoglobin 30.2 pg (25.0-34.0); Mean Corpuscular Hgb Conc 32.1 g/dL (32.0-36.0); Mean Platelet Volume 11.8 fL (9.4-12.4); Platelet Count 162 K/uL (130-400); RDW Coefficient of Variation 13.6 % (11.5-14.5); RDW Standard Deviation 46.3 fL (36.4-46.3); Red Blood Count 2.68 M/uL (4.20-5.40); White Blood Count 5.44 K/ul (4.8-10.8)
[2023-07-02 11:13] LABS: BUN Creatinine Ratio 19.2 (10-20); Calcium 7.8 mg/dl (8.6-10.3); Creatinine Clr Calc Pharmacy 39.4 ml/min; Est GFR (African American) 63.3 ml/min; Est GFR (Non-African American) 54.6 ml/min; Potassium 4.1 mmol/L (3.5-5.1)
--- NOTE | 2023-07-02 16:10 | Hospitalist Progress Note ---
Date of Service July 02, 2023 Assessment & Plan (1) Closed hip fracture: Plan 78-year-old lady with PMH of advanced dementia, T2DM insulin requiring, breast cancer, GERD, PUD, depression, asthma, gout, hypercholesterolemia presented to the ED 06/27 from long term with refusal to ambulate after an unwitnessed fall. She was noted to have mildly displaced left femoral neck fracture at ED. At baseline, patient is relatively mobile at the long term though not always compliant with recommended assistive devices. She is being managed for the following: Left displaced femoral neck fracture: Patient came in with fall and refusal to ambulate Admitting CT head and CXR with no acute finding. Admitting hip x-ray with mildly displaced left femoral neck fracture. Pain management, bowel regimen. Orthopedic on board, s/p Left Hip Hemiarthroplasty(Left) - Sánchez Sorenson, DO 06/28. Fall precaution. Continue IV fluid, delirium precaution. Encourage PO intake. High risk for delirium given advanced dementia and hip fracture in the setting of hospitalization. PT/OT. Acute blood loss anemia: Likely perioperative blood loss and dilutional component. Preoperative hemoglobin of 11.4, postoperative 9.0. Continue to monitor H&H. CKD stage III: Baseline creatinine around 1.3-1.4. Stable. Other chronic medical conditions: Continue with/resume home meds as and when able T2DM, insulin requiring: Sliding scale insulin while in hospital. On insulin and Trulicity at home. Dementia with behavioral disturbance: Per daughter, patient with advanced dementiadoes not recognize family/not oriented. Fall precaution, delirium precaution, may need one-to-one depending on hospital course. Hypothyroidism: Continue home levothyroxine Depression: Continue home meds as able Benign essential hypertension: Continue home atenolol, fairly under control. Acid reflux disease: Continue home PPI therapy Code status: DNR/DNI DVT Prophylaxis: SCDs and aspirin BD. Dispo: PT/OT. CM to assist w/ dc plan. can dc to rehab. Admission and Anticipated Discharge Date Admission Date: June 27, 2023 Subjective Patient was seen and examined at bedside. Patient was lying in bed, on room air, not in any acute distress. Patient is demented at baseline, incomprehensible speech, ROS not able. s/p left hip repair 06/28. Pt on soft mittens as she tries to get her lines out. Scheduled Haldol added with a goal to remove mitts in preparation for rehab placement, communicated with nursing. Physical Exam Physical Exam: General: awake, no acute distress but incomprehensible speech at times HEENT: no scleral icterus, dry oral mucosa Neck: trachea midline Heart: RRR Lungs: CTA bilaterally Abdomen: soft, NT, +BS Extremities: no pedal edema, left hip w/ clean dressing wo soakage. Skin: no jaundice Neurologic: aphasia, not oriented to place or time, unclear if oriented to person Results & Data Results & Data Vital Signs (Past 12 Hours) Vital Signs Temp Pulse Pulse Resp BP Pulse Ox O2 Del Method 07/02/23 14:21 36.6 C 67 17 105/63 95 Room Air 07/02/23 11:46 36.7 C 64 12 113/73 96 Room Air 07/02/23 08:02 36.7 C 72 14 137/82 97 Room Air (1) Closed hip fracture Encounter type: initial encounter Laterality: left Qualified Code(s): S72.002A - Fracture of unspecified part of neck of left femur, initial encounter for closed fracture
[2023-07-02] MEDS: haloperidoL 5 MG TAB PO SCH (21:01)
--- NOTE | 2023-07-03 18:25 | Hospitalist Progress Note ---
Date of Service July 03, 2023 Assessment & Plan (1) Closed hip fracture: Plan 78-year-old lady with PMH of advanced dementia, T2DM insulin requiring, breast cancer, GERD, PUD, depression, asthma, gout, hypercholesterolemia presented to the ED 06/27 from senior living with refusal to ambulate after an unwitnessed fall. She was noted to have mildly displaced left femoral neck fracture at ED. At baseline, patient is relatively mobile at the senior living though not always compliant with recommended assistive devices. She is being managed for the following: Left displaced femoral neck fracture: Patient came in with fall and refusal to ambulate Admitting CT head and CXR with no acute finding. Admitting hip x-ray with mildly displaced left femoral neck fracture. Pain management, bowel regimen. Orthopedic on board, s/p Left Hip Hemiarthroplasty(Left) - Sánchez Sorenson, DO 06/28. PT/OT-may need placement for rehab Advanced dementia Delirium with acute events which seems to be improving Fall precaution. Continue IV fluid, delirium precaution. Encourage PO intake. Will monitor in the hospital Awaiting placement Acute blood loss anemia: Likely perioperative blood loss and dilutional component. Preoperative hemoglobin of 11.4, postoperative 9.0. Continue to monitor H&H. Hemoglobin remains low at 8.1 as of 07/02/2023 Will monitor CBC CKD stage III: Baseline creatinine around 1.3-1.4. Stable. Other chronic medical conditions: Continue with/resume home meds as and when able T2DM, insulin requiring: Sliding scale insulin while in hospital. On insulin and Trulicity at home. Dementia with behavioral disturbance: Per daughter, patient with advanced dementiadoes not recognize family/not oriented. Fall precaution, delirium precaution, may need one-to-one depending on hospital course. Hypothyroidism: Continue home levothyroxine Depression: Continue home meds as able Benign essential hypertension: Continue home atenolol, fairly under control. Acid reflux disease: Continue home PPI therapy Code status: DNR/DNI DVT Prophylaxis: SCDs and aspirin BD. Dispo: PT/OT. CM to assist w/ dc plan. can dc to rehab. Admission and Anticipated Discharge Date Admission Date: June 27, 2023 Subjective 07/03/2023 The patient was seen and examined in medical floor He has been stable with minimal pain at the left hip Denies any other significant symptom Review of Systems Review of Systems: All systems reviewed and are unremarkable except as noted below Physical Exam Physical Exam: Lying in bed without any acute distress Constitutional: well developed and well nourished; not ill appearing Eyes: PERRL, conjunctivae normal, anicteric sclerae ENMT: external ear and nose normal, oropharynx normal Neck: trachea midline, no thyromegaly Respiratory: no respiratory distress Auscultation: lungs clear to auscultat ion bilaterally Cardiovascular: Rate/Rhythm: regular rate and regular rhythm; not tachycardic Heart Sounds: normal S1 and normal S2; no murmur Extremities: no edema Gastrointestinal (Abdomen): Inspection/Auscultation: normal bowel sounds; abdomen not distended Percussion/Palpation: abdomen soft; abdomen nontender Musculoskeletal: Left hip pain with movement of the left lower extremity Neurologic: normal touch/pain/proprioception and moves all extremities; no focal motor deficits Psychiatric: A+Ox3, euthymic affect Lymphatic: no cervical or axillary lymphadenopathy Results & Data Results & Data Vital Signs (Past 12 Hours) Vital Signs Temp Pulse Resp BP BP Pulse Ox O2 Del Method 07/03/23 14:44 36.6 C 65 15 116/54 L 94 Room Air 07/03/23 07:11 36.6 C 68 16 104/50 L 95 Room Air 07/03/23 07:00 Room Air Medications Administered Current Inpatient Medications Aspirin (Aspirin 81 Mg Ectab) 81 mg PO BID DUNG Stop: 07/28/23 20:59 Last Admin: 07/03/23 08:28 Dose: 81 mg Atenolol (Atenolol 25 Mg Tablet) 25 mg PO DAILY DUNG Stop: 07/28/23 08:59 Last Admin: 07/03/23 08:28 Dose: 25 mg Bisacodyl (Bisacodyl 10 Mg Supp) 10 mg [place] DAILY PRN PRN Reason: Constipation Stop: 07/31/23 08:42 Dextrose (Dextrose 50% 50 Ml Syringe) 25 - 50 ml IV UD PRN; Protocol PRN Reason: Hypoglycemia Protocol Stop: 07/27/23 15:56 Docusate Sodium (Docusate Sodium 100 Mg Cap) 100 mg PO BID DUNG Stop: 07/27/23 20:59 Last Admin: 07/03/23 08:28 Dose: 100 mg Escitalopram Oxalate (Escitalopram Oxalate 20 Mg Tab) 20 mg PO DAILY DUNG Stop: 07/28/23 08:59 Last Admin: 07/03/23 08:28 Dose: 20 mg Ferrous Sulfate (Ferrous Sulfate 325 Mg Tab) 325 mg PO BID DUNG Stop: 07/27/23 20:59 Last Admin: 07/03/23 08:28 Dose: 325 mg Glucagon (Glucagon For Inj 1 Mg Vial) 1 mg SQ UD PRN; Protocol PRN Reason: Hypoglycemia Protocol Stop: 07/27/23 15:56 Glucose (Glucose 10 Tab/Tube) 4 - 8 tab PO UD PRN; Protocol PRN Reason: Hypoglycemia Treatment Stop: 07/27/23 15:56 Glucose (Glucose 40% Gel 15 Gm Tube) 15 - 30 gm PO UD PRN; Protocol PRN Reason: Hypoglycemia Protocol Stop: 07/27/23 15:56 Haloperidol (Haloperidol 5 Mg Tab) 2.5 mg PO BID DUNG Stop: 08/01/23 20:59 Last Admin: 07/03/23 08:27 Dose: 2.5 mg Insulin Aspart (Insulin Aspart Per Unit Charge) 0 units SC ACHS DUNG Stop: 07/29/23 07:29 Last Admin: 07/03/23 16:56 Dose: Not Given Levothyroxine Sodium (Levothyroxine Sodium 88 Mcg Tablet) 88 mcg PO DAILYBB DUNG Stop: 07/28/23 06:29 Last Admin: 07/03/23 05:14 Dose: 88 mcg Lorazepam (Lorazepam 0.5 Mg Tab) 0.5 mg PO Q8 PRN PRN Reason: Anxiety Stop: 07/27/23 15:56 Last Admin: 07/02/23 16:38 Dose: 0.5 mg Miscellaneous (Carbohydrates For Hypoglycemia ) 15 - 30 gm PO UD PRN PRN Reason: Hypoglycemia Protocol Stop: 07/27/23 15:56 Montelukast Sodium (Montelukast Sodium 10 Mg Tablet) 10 mg PO HS DUNG Stop: 07/27/23 20:59 Last Admin: 07/02/23 21:01 Dose: 10 mg Morphine Sulfate (Morphine Sulfate 2 Mg/Ml Carp) 2 mg IV Q4H PRN PRN Reason: Pain Stop: 07/11/23 12:10 Last Admin: 06/30/23 19:38 Dose: 2 mg Olanzapine (Olanzapine 10 Mg/2.1 Ml Sdv) 2.5 mg IM Q4H PRN PRN Reason: Agitation Stop: 07/28/23 19:21 Pantoprazole Sodium (Pantoprazole 40 Mg Tab) 40 mg PO QAM [facility] Stop: 07/28/23 08:59 Last Admin: 07/03/23 08:28 Dose: 40 mg Polyethylene Glycol (Polyethylene (Miralax) 17 Gm Pack) 17 gm PO DAILY PRN PRN Reason: Constipation Stop: 07/31/23 08:42 Quetiapine Fumarate (Quetiapine Fumarate 100 Mg Tablet) 100 mg PO TID DUNG Stop: 07/27/23 16:14 Last Admin: 07/03/23 15:12 Dose: 100 mg Senna/Docusate Sodium (Docusate Sodium/Senna 50/8.6mg Tab) 1 tab PO QAM PRN PRN Reason: Constipation Stop: 07/27/23 15:56 Tramadol HCl (Tramadol Hcl 50 Mg Tablet) 50 mg PO TID PRN PRN Reason: Pain Stop: 07/27/23 15:56 Last Admin: 07/03/23 12:15 Dose: 50 mg Vitamin D (Cholecalciferol 125 Mcg (5,000 Units) Tab) 125 mcg PO QAM [facility] Stop: 07/29/23 09:14 Last Admin: 07/03/23 08:28 Dose: 125 mcg (1) Closed hip fracture Encounter type: initial encounter Laterality: left Qualified Code(s): S72.002A - Fracture of unspecified part of neck of left femur, initial encounter for closed fracture
[2023-07-04 09:37] LABS: BUN Creatinine Ratio 18.6 (10-20); Calcium 8.2 mg/dl (8.6-10.3); Creatinine Clr Calc Pharmacy 40.2 ml/min; Est GFR (African American) 64.8 ml/min; Est GFR (Non-African American) 55.9 ml/min; Magnesium 1.4 mg/dl (1.7-2.4); Phosphorus 2.9 mg/dl (2.5-4.9); Potassium 3.9 mmol/L (3.5-5.1)
[2023-07-04 10:23] LABS: Basophils # (auto) 0.05 K/uL (0.00-0.20); Basophils % (auto) 0.8 %; Eosinophils # (auto) 0.84 K/uL (0.00-0.50); Eosinophils % (auto) 14.2 %; Hemoglobin 8.6 g/dl (12.0-16.0); Immature Granulocytes # (auto) 0.04 K/uL (0.01-0.20); Immature Granulocytes % (auto) 0.7 %; Lymphocytes # (auto) 1.35 K/uL (1.20-3.40); Lymphocytes % (auto) 22.8 %; Mean Corpuscular Hemoglobin 30.9 pg (25.0-34.0); Mean Corpuscular Hgb Conc 33.1 g/dL (32.0-36.0); Mean Corpuscular Volume 93.5 fL (80.0-100.0); Mean Platelet Volume 11.5 fL (9.4-12.4); Monocytes # (auto) 0.59 K/uL (0.11-0.59); Neutrophils # (auto) 3.05 K/uL (1.40-6.50); Neutrophils % (auto) 51.5 %; Platelet Count 192 K/uL (130-400); RDW Coefficient of Variation 13.6 % (11.5-14.5); RDW Standard Deviation 46.2 fL (36.4-46.3); Red Blood Count 2.78 M/uL (4.20-5.40); White Blood Count 5.92 K/ul (4.8-10.8)
[2023-07-04] MEDS: MAGNESIUM OXIDE 400 MG TAB PO SCH (10:28)
[2023-07-04] MEDS: DOCUSATE SODIUM/SENNA 50/8.6MG TAB PO PRN (13:12)
--- NOTE | 2023-07-04 16:23 | Hospitalist Progress Note ---
Date of Service July 04, 2023 Assessment & Plan (1) Closed hip fracture: Plan 78-year-old lady with PMH of advanced dementia, T2DM insulin requiring, breast cancer, GERD, PUD, depression, asthma, gout, hypercholesterolemia presented to the ED [facility]/27 from [facility] with refusal to ambulate after an unwitnessed fall. She was noted to have mildly displaced left femoral neck fracture at ED. At baseline, patient is relatively mobile at the [facility] though not always compliant with recommended assistive devices. She is being managed for the following: Left displaced femoral neck fracture: Patient came in with fall and refusal to ambulate Admitting CT head and CXR with no acute finding. Admitting hip x-ray with mildly displaced left femoral neck fracture. Pain management, bowel regimen. Orthopedic on board, s/p Left Hip Hemiarthroplasty(Left) - Sánchez Sorenson, DO 06/28. PT/OT-will need placement Remains medically stable with significant dementia Advanced dementia Delirium with acute events which seems to be improving Fall precaution. Continue IV fluid, delirium precaution. Encourage PO intake. Will monitor in the hospital Has had an attack of acute delirium this morning Has been resting in bed since then Acute blood loss anemia: Likely perioperative blood loss and dilutional component. Preoperative hemoglobin of 11.4, postoperative 9.0. Continue to monitor H&H. Hemoglobin remains low at 8.1 as of 07/02/2023 Will monitor CBC-hemoglobin remains stable at 8.6 CKD stage III: Baseline creatinine around 1.3-1.4. Stable. Other chronic medical conditions: Continue with/resume home meds as and when able T2DM, insulin requiring: Sliding scale insulin while in hospital. On insulin and Trulicity at home. Dementia with behavioral disturbance: Per daughter, patient with advanced dementiadoes not recognize family/not oriented. Fall precaution, delirium precaution, may need one-to-one depending on hospital course. Hypothyroidism: Continue home levothyroxine Depression: Continue home meds as able Benign essential hypertension: Continue home atenolol, fairly under control. Acid reflux disease: Continue home PPI therapy Code status: DNR/DNI DVT Prophylaxis: SCDs and aspirin BD. Dispo: PT/OT. CM to assist w/ dc plan. can dc to rehab. Admission and Anticipated Discharge Date Admission Date: June 27, 2023 Subjective 07/03/2023 The patient was seen and examined in medical floor He has been stable with minimal pain at the left hip Denies any other significant symptom 07/04/2023 The patient was seen and examined in medical floor She has significant dementia and has had an attack of delirium this morning She was noted to come out of the room dragging her Hartman and walking in the hallway She has been eating reasonably and was put back in the bed and has been resting since then Review of Systems Review of Systems: All systems reviewed and are unremarkable except as noted below Physical Exam Physical Exam: Lying in bed without any acute distress Constitutional: well developed and well nourished; not ill appearing Eyes: PERRL, conjunctivae normal, anicteric sclerae ENMT: external ear and nose normal, oropharynx normal Neck: trachea midline, no thyromegaly Respiratory: no respiratory distress Auscultation: lungs clear to auscultation bilaterally Cardiovascular: Rate/Rhythm: regular rate and regular rhythm; not tachycardic Heart Sounds: normal S1 and normal S2; no murmur Extremities: no edema Gastrointestinal (Abdomen): Inspection/Auscultation: normal bowel sounds; abdomen not distended Percussion/Palpation: abdomen soft; abdomen nontender Neurologic: normal touch/pain/proprioception and moves all extremities; no focal motor deficits Psychiatric: A+Ox3, euthymic affect Lymphatic: no cervical or axillary lymphadenopathy Results & Data Results & Data Vital Signs (Past 12 Hours) Vital Signs Temp Pulse Resp BP Pulse Ox O2 Del Method 07/04/23 15:17 36.6 C 64 16 147/85 H 97 Room Air 07/04/23 07:37 36.5 C 87 16 125/80 94 Room Air Laboratory Results Short CBC 07/04/23 07/04/23 Range/Units 08:29 09:49 WBC Cancelled 5.92 Hgb Cancelled 8.6 L Hct Cancelled 26.0 L Plt Count Cancelled 192 BMP 07/04/23 08:29 Sodium 136 Potassium 3.9 Chloride 106 Carbon Dioxide 24 BUN 18 Creatinine 0.97 Glucose 195 H Calcium 8.2 L Medications Administered Current Inpatient Medications Aspirin (Aspirin 81 Mg Ectab) 81 mg PO BID DUNG Stop: 07/28/23 20:59 Last Admin: 07/04/23 07:53 Dose: 81 mg Atenolol (Atenolol 25 Mg Tablet) 25 mg PO DAILY DUNG Stop: 07/28/23 08:59 Last Admin: 07/04/23 07:53 Dose: 25 mg Bisacodyl (Bisacodyl 10 Mg Supp) 10 mg [place] DAILY PRN PRN Reason: Constipation Stop: 07/31/23 08:42 Dextrose (Dextrose 50% 50 Ml Syringe) 25 - 50 ml IV UD PRN; Protocol PRN Reason: Hypoglycemia Protocol Stop: 07/27/23 15:56 Docusate Sodium (Docusate Sodium 100 Mg Cap) 100 mg PO BID DUNG Stop: 07/27/23 20:59 Last Admin: 07/04/23 07:53 Dose: 100 mg Escitalopram Oxalate (Escitalopram Oxalate 20 Mg Tab) 20 mg PO DAILY DUNG Stop: 07/28/23 08:59 Last Admin: 07/04/23 07:53 Dose: 20 mg Ferrous Sulfate (Ferrous Sulfate 325 Mg Tab) 325 mg PO BID DUNG Stop: 07/27/23 20:59 Last Admin: 07/04/23 07:53 Dose: 325 mg Glucagon (Glucagon For Inj 1 Mg Vial) 1 mg SQ UD PRN; Protocol PRN Reason: Hypoglycemia Protocol Stop: 07/27/23 15:56 Glucose (Glucose 10 Tab/Tube) 4 - 8 tab PO UD PRN; Protocol PRN Reason: Hypoglycemia Treatment Stop: 07/27/23 15:56 Glucose (Glucose 40% Gel 15 Gm Tube) 15 - 30 gm PO UD PRN; Protocol PRN Reason: Hypoglycemia Protocol Stop: 07/27/23 15:56 Haloperidol (Haloperidol 5 Mg Tab) 2.5 mg PO BID DUNG Stop: 08/01/23 20:59 Last Admin: 07/04/23 07:53 Dose: 2.5 mg Insulin Aspart (Insulin Aspart Per Unit Charge) 0 units SC ACHS DUNG Stop: 07/29/23 07:29 Last Admin: 07/04/23 12:40 Dose: Not Given Levothyroxine Sodium (Levothyroxine Sodium 88 Mcg Tablet) 88 mcg PO DAILYBB COUNTS INCLUDE 234 BEDS AT THE [facility] Stop: 07/28/23 06:29 Last Admin: 07/04/23 05:39 Dose: 88 mcg Lorazepam (Lorazepam 0.5 Mg Tab) 0.5 mg PO Q8 PRN PRN Reason: Anxiety Stop: 07/27/23 15:56 Last Admin: 07/04/23 07:20 Dose: 0.5 mg Magnesium Oxide (Magnesium Oxide 400 Mg Tab) 400 mg PO BID DUNG Stop: 08/03/23 09:59 Last Admin: 07/04/23 10:28 Dose: 400 mg Miscellaneous (Carbohydrates For Hypoglycemia ) 15 - 30 gm PO UD PRN PRN Reason: Hypoglycemia Protocol Stop: 07/27/23 15:56 Montelukast Sodium (Montelukast Sodium 10 Mg Tablet) 10 mg PO HS DUNG Stop: 07/27/23 20:59 Last Admin: 07/03/23 21:02 Dose: 10 mg Morphine Sulfate (Morphine Sulfate 2 Mg/Ml Carp) 2 mg IV Q4H PRN PRN Reason: Pain Stop: 07/11/23 12:10 Last Admin: 06/30/23 19:38 Dose: 2 mg Olanzapine (Olanzapine 10 Mg/2.1 Ml Sdv) 2.5 mg IM Q4H PRN PRN Reason: Agitation Stop: 07/28/23 19:21 Pantoprazole Sodium (Pantoprazole 40 Mg Tab) 40 mg PO QAM COUNTS INCLUDE 234 BEDS AT THE [facility] Stop: 07/28/23 08:59 Last Admin: 07/04/23 07:53 Dose: 40 mg Polyethylene Glycol (Polyethylene (Miralax) 17 Gm Pack) 17 gm PO DAILY PRN PRN Reason: Constipation Stop: 07/31/23 08:42 Quetiapine Fumarate (Quetiapine Fumarate 100 Mg Tablet) 100 mg PO TID DUNG Stop: 07/27/23 16:14 Last Admin: 07/04/23 13:09 Dose: 100 mg Senna/Docusate Sodium (Docusate Sodium/Senna 50/8.6mg Tab) 1 tab PO QAM PRN PRN Reason: Constipation Stop: 07/27/23 15:56 Last Admin: 07/04/23 13:12 Dose: 1 tab Tramadol HCl (Tramadol Hcl 50 Mg Tablet) 50 mg PO TID PRN PRN Reason: Pain Stop: 07/27/23 15:56 Last Admin: 07/04/23 07:20 Dose: 50 mg Vitamin D (Cholecalciferol 125 Mcg (5,000 Units) Tab) 125 mcg PO QAM DUNG Stop: 07/29/23 09:14 Last Admin: 07/04/23 07:52 Dose: 125 mcg (1) Closed hip fracture Encounter type: initial encounter Laterality: left Qualified Code(s): S72.002A - Fracture of unspecified part of neck of left femur, initial encounter for closed fracture
--- NOTE | 2023-07-05 16:09 | Hospitalist Progress Note ---
Date of Service July 05, 2023 Assessment & Plan (1) Closed hip fracture: Plan 78-year-old lady with PMH of advanced dementia, T2DM insulin requiring, breast cancer, GERD, PUD, depression, asthma, gout, hypercholesterolemia presented to the ED 06/27 from residential with refusal to ambulate after an unwitnessed fall. She was noted to have mildly displaced left femoral neck fracture at ED. At baseline, patient is relatively mobile at the residential though not always compliant with recommended assistive devices. She is being managed for the following: Left displaced femoral neck fracture: Patient came in with fall and refusal to ambulate Admitting CT head and CXR with no acute finding. Admitting hip x-ray with mildly displaced left femoral neck fracture. Pain management, bowel regimen. Orthopedic on board, s/p Left Hip Hemiarthroplasty(Left) - Sánchez Sorenson, DO 06/28. PT/OT-will need placement Remains medically stable with significant dementia Has been getting physical therapy and doing very well with that Advanced dementia Delirium with acute events which seems to be improving Fall precaution. Continue IV fluid, delirium precaution. Encourage PO intake. Will monitor in the hospital Has had an attack of acute delirium this morning Has been resting in bed since then Has been eating and drinking reasonably and not been aggressive today She will need to be placed Acute blood loss anemia: Likely perioperative blood loss and dilutional component. Preoperative hemoglobin of 11.4, postoperative 9.0. Continue to monitor H&H. Hemoglobin remains low at 8.1 as of 07/02/2023 Will monitor CBC-hemoglobin remains stable at 8.6 CKD stage III: Baseline creatinine around 1.3-1.4. Stable. Other chronic medical conditions: Continue with/resume home meds as and when able T2DM, insulin requiring: Sliding scale insulin while in hospital. On insulin and Trulicity at home. Dementia with behavioral disturbance: Per daughter, patient with advanced dementiadoes not recognize family/not oriented. Fall precaution, delirium precaution, may need one-to-one depending on hospital course. Hypothyroidism: Continue home levothyroxine Depression: Continue home meds as able Benign essential hypertension: Continue home atenolol, fairly under control. Acid reflux disease: Continue home PPI therapy Code status: DNR/DNI DVT Prophylaxis: SCDs and aspirin BD. Dispo: PT/OT. CM to assist w/ dc plan. can dc to rehab. Admission and Anticipated Discharge Date Admission Date: June 27, 2023 Subjective 07/03/2023 The patient was seen and examined in medical floor He has been stable with minimal pain at the left hip Denies any other significant symptom 07/04/2023 The patient was seen and examined in medical floor She has significant dementia and has had an attack of delirium this morning She was noted to come out of the room dragging her Hartman and walking in the hallway She has been eating reasonably and was put back in the bed and has been resting since then 07/05/2023 The patient was seen and examined in medical floor She has been stable with advanced dementia Does not have any acute delirium Does not have any acute distress at rest Review of Systems Review of Systems: All systems reviewed and are unremarkable except as noted below Physical Exam Physical Exam: Lying in bed without any acute distress Constitutional: well developed and well nourished; not ill appearing Eyes: PERRL, conjunctivae normal, anicteric sclerae ENMT: external ear and nose normal, oropharynx normal Neck: trachea midline, no thyromegaly Respiratory: no respiratory distress Auscultation: lungs clear to auscultation bilaterally Cardiovascular: Rate/Rhythm: regular rate and regular rhythm; not tachycardic Heart Sounds: normal S1 and normal S2; no murmur Extremities: no edema Gastrointestinal (Abdomen): Inspection/Auscultation: normal bowel sounds; abdomen not distended Percussion/Palpation: abdomen soft; abdomen nontender Neurologic: normal touch/pain/proprioception and moves all extremities; no focal motor deficits Psychiatric: A+Ox3, euthymic affect Lymphatic: no cervical or axillary lymphadenopathy Results & Data Results & Data Vital Signs (Past 12 Hours) Vital Signs Temp Pulse Resp BP BP Pulse Ox O2 Del Method 07/05/23 14:40 36.6 C 88 16 137/75 99 Room Air 07/05/23 11:07 36.2 C L 75 12 127/62 100 Room Air 07/05/23 08:00 37.2 C 78 20 106/69 98 Room Air Medications Administered Current Inpatient Medications Aspirin (Aspirin 81 Mg Ectab) 81 mg PO BID DUNG Stop: 07/28/23 20:59 Last Admin: 07/05/23 07:35 Dose: 81 mg Atenolol (Atenolol 25 Mg Tablet) 25 mg PO DAILY DUNG Stop: 07/28/23 08:59 Last Admin: 07/05/23 07:36 Dose: 25 mg Bisacodyl (Bisacodyl 10 Mg Supp) 10 mg DC DAILY PRN PRN Reason: Constipation Stop: 07/31/23 08:42 Dextrose (Dextrose 50% 50 Ml Syringe) 25 - 50 ml IV UD PRN; Protocol PRN Reason: Hypoglycemia Protocol Stop: 07/27/23 15:56 Docusate Sodium (Docusate Sodium 100 Mg Cap) 100 mg PO BID DUNG Stop: 07/27/23 20:59 Last Admin: 07/05/23 07:45 Dose: Not Given Escitalopram Oxalate (Escitalopram Oxalate 20 Mg Tab) 20 mg PO DAILY DUNG Stop: 07/28/23 08:59 Last Admin: 07/05/23 07:37 Dose: 20 mg Ferrous Sulfate (Ferrous Sulfate 325 Mg Tab) 325 mg PO BID DUNG Stop: 07/27/23 20:59 Last Admin: 07/05/23 07:35 Dose: 325 mg Glucagon (Glucagon For Inj 1 Mg Vial) 1 mg SQ UD PRN; Protocol PRN Reason: Hypoglycemia Protocol Stop: 07/27/23 15:56 Glucose (Glucose 10 Tab/Tube) 4 - 8 tab PO UD PRN; Protocol PRN Reason: Hypoglycemia Treatment Stop: 07/27/23 15:56 Glucose (Glucose 40% Gel 15 Gm Tube) 15 - 30 gm PO UD PRN; Protocol PRN Reason: Hypoglycemia Protocol Stop: 07/27/23 15:56 Haloperidol (Haloperidol 5 Mg Tab) 2.5 mg PO BID DUNG Stop: 08/01/23 20:59 Last Admin: 07/05/23 07:37 Dose: 2.5 mg Insulin Aspart (Insulin Aspart Per Unit Charge) 0 units SC ACHS DUNG Stop: 07/29/23 07:29 Last Admin: 07/05/23 11:58 Dose: Not Given Levothyroxine Sodium (Levothyroxine Sodium 88 Mcg Tablet) 88 mcg PO DAILYBB [facility] Stop: 07/28/23 06:29 Last Admin: 07/05/23 05:47 Dose: 88 mcg Lorazepam (Lorazepam 0.5 Mg Tab) 0.5 mg PO Q8 PRN PRN Reason: Anxiety Stop: 07/27/23 15:56 Last Admin: 07/05/23 15:00 Dose: 0.5 mg Magnesium Oxide (Magnesium Oxide 400 Mg Tab) 400 mg PO BID DUNG Stop: 08/03/23 09:59 Last Admin: 07/05/23 07:36 Dose: 400 mg Miscellaneous (Carbohydrates For Hypoglycemia ) 15 - 30 gm PO UD PRN PRN Reason: Hypoglycemia Protocol Stop: 07/27/23 15:56 Montelukast Sodium (Montelukast Sodium 10 Mg Tablet) 10 mg PO HS DUNG Stop: 07/27/23 20:59 Last Admin: 07/04/23 20:18 Dose: 10 mg Morphine Sulfate (Morphine Sulfate 2 Mg/Ml Carp) 2 mg IV Q4H PRN PRN Reason: Pain Stop: 07/11/23 12:10 Last Admin: 06/30/23 19:38 Dose: 2 mg Olanzapine (Olanzapine 10 Mg/2.1 Ml Sdv) 2.5 mg IM Q4H PRN PRN Reason: Agitation Stop: 07/28/23 19:21 Pantoprazole Sodium (Pantoprazole 40 Mg Tab) 40 mg PO QAM [facility] Stop: 07/28/23 08:59 Last Admin: 07/05/23 07:36 Dose: 40 mg Polyethylene Glycol (Polyethylene (Miralax) 17 Gm Pack) 17 gm PO DAILY PRN PRN Reason: Constipation Stop: 07/31/23 08:42 Quetiapine Fumarate (Quetiapine Fumarate 100 Mg Tablet) 100 mg PO TID DUNG Stop: 07/27/23 16:14 Last Admin: 07/05/23 12:56 Dose: 100 mg Senna/Docusate Sodium (Docusate Sodium/Senna 50/8.6mg Tab) 1 tab PO QAM PRN PRN Reason: Constipation Stop: 07/27/23 15:56 Last Admin: 07/04/23 13:12 Dose: 1 tab Tramadol HCl (Tramadol Hcl 50 Mg Tablet) 50 mg PO TID PRN PRN Reason: Pain Stop: 07/27/23 15:56 Last Admin: 07/05/23 12:56 Dose: 50 mg Vitamin D (Cholecalciferol 125 Mcg (5,000 Units) Tab) 125 mcg PO QAM DUNG Stop: 07/29/23 09:14 Last Admin: 07/05/23 07:36 Dose: 125 mcg (1) Closed hip fracture Encounter type: initial encounter Laterality: left Qualified Code(s): S72.002A - Fracture of unspecified part of neck of left femur, initial encounter for closed fracture
--- NOTE | 2023-07-06 15:45 | Hospitalist Progress Note ---
Date of Service July 06, 2023 Assessment & Plan (1) Closed hip fracture: Plan 78-year-old lady with PMH of advanced dementia, T2DM insulin requiring, breast cancer, GERD, PUD, depression, asthma, gout, hypercholesterolemia presented to the ED 06/27 from [facility] with refusal to ambulate after an unwitnessed fall. She was noted to have mildly displaced left femoral neck fracture at ED. At baseline, patient is relatively mobile at the [facility] though not always compliant with recommended assistive devices. She is being managed for the following: Left displaced femoral neck fracture: Patient came in with fall and refusal to ambulate Admitting CT head and CXR with no acute finding. Admitting hip x-ray with mildly displaced left femoral neck fracture. Pain management, bowel regimen. Orthopedic on board, s/p Left Hip Hemiarthroplasty(Left) - Sánchez Sorenson, DO 06/28. PT/OT-will need placement Remains medically stable with significant dementia Has been getting physical therapy and doing very well with that Has been getting physical therapy without much complaint Advanced dementia Delirium with acute events which seems to be improving Fall precaution. Continue IV fluid, delirium precaution. Encourage PO intake. Will monitor in the hospital Has had an attack of acute delirium this morning Has been resting in bed since then Has been eating and drinking reasonably and not been aggressive today She will need to be placed No acute delirium and no aggressiveness but remains very confused which seems to be at her baseline Acute blood loss anemia: Likely perioperative blood loss and dilutional component. Preoperative hemoglobin of 11.4, postoperative 9.0. Continue to monitor H&H. Hemoglobin remains low at 8.1 as of 07/02/2023 Will monitor CBC-hemoglobin remains stable at 8.6 CKD stage III: Baseline creatinine around 1.3-1.4. Stable. Other chronic medical conditions: Continue with/resume home meds as and when able T2DM, insulin requiring: Sliding scale insulin while in hospital. On insulin and Trulicity at home. Dementia with behavioral disturbance: Per daughter, patient with advanced dementiadoes not recognize family/not oriented. Fall precaution, delirium precaution, may need one-to-one depending on hospital course. Hypothyroidism: Continue home levothyroxine Depression: Continue home meds as able Benign essential hypertension: Continue home atenolol, fairly under control. Acid reflux disease: Continue home PPI therapy Code status: DNR/DNI DVT Prophylaxis: SCDs and aspirin BD. Dispo: PT/OT. CM to assist w/ dc plan. can dc to rehab. Admission and Anticipated Discharge Date Admission Date: June 27, 2023 Subjective 07/03/2023 The patient was seen and examined in medical floor He has been stable with minimal pain at the left hip Denies any other significant symptom 07/04/2023 The patient was seen and examined in medical floor She has significant dementia and has had an attack of delirium this morning She was noted to come out of the room dragging her Hartman and walking in the hallway She has been eating reasonably and was put back in the bed and has been resting since then 07/05/2023 The patient was seen and examined in medical floor She has been stable with advanced dementia Does not have any acute delirium Does not have any acute distress at rest 07/06/2023 The patient was seen and examined in medical floor She has been stable Eating and drinking reasonably Remains confused seems to be at her baseline but no acute delirium Review of Systems Review of Systems: All systems reviewed and are unremarkable except as noted below Physical Exam Physical Exam: Lying in bed without any acute distress Constitutional: well developed and well nourished; not ill appearing Eyes: PERRL, conjunctivae normal, anicteric sclerae ENMT: external ear and nose normal, oropharynx normal Neck: trachea midline, no thyromegaly Respiratory: no respiratory distress Auscultation: lungs clear to auscultation bilaterally Cardiovascular: Rate/Rhythm: regular rate and regular rhythm; not tachycardic Heart Sounds: normal S1 and normal S2; no murmur Extremities: no edema Gastrointestinal (Abdomen): Inspection/Auscultation: normal bowel sounds; abdomen not distended Percussion/Palpation: abdomen soft; abdomen nontender Neurologic: normal touch/pain/proprioception and moves all extremities; no focal motor deficits Psychiatric: A+Ox3, euthymic affect Lymphatic: no cervical or axillary lymphadenopathy Results & Data Results & Data Vital Signs (Past 12 Hours) Vital Signs Temp Pulse Resp BP 07/06/23 08:18 36.5 C 84 18 174/80 H Medications Administered Current Inpatient Medications Aspirin (Aspirin 81 Mg Ectab) 81 mg PO BID DUNG Stop: 07/28/23 20:59 Last Admin: 07/06/23 08:30 Dose: 81 mg Atenolol (Atenolol 25 Mg Tablet) 25 mg PO DAILY DUNG Stop: 07/28/23 08:59 Last Admin: 07/06/23 08:30 Dose: 25 mg Bisacodyl (Bisacodyl 10 Mg Supp) 10 mg MN DAILY PRN PRN Reason: Constipation Stop: 07/31/23 08:42 Dextrose (Dextrose 50% 50 Ml Syringe) 25 - 50 ml IV UD PRN; Protocol PRN Reason: Hypoglycemia Protocol Stop: 07/27/23 15:56 Docusate Sodium (Docusate Sodium 100 Mg Cap) 100 mg PO BID DUNG Stop: 07/27/23 20:59 Last Admin: 07/06/23 08:27 Dose: 100 mg Escitalopram Oxalate (Escitalopram Oxalate 20 Mg Tab) 20 mg PO DAILY DUNG Stop: 07/28/23 08:59 Last Admin: 07/06/23 08:30 Dose: 20 mg Ferrous Sulfate (Ferrous Sulfate 325 Mg Tab) 325 mg PO BID DUNG Stop: 07/27/23 20:59 Last Admin: 07/06/23 08:28 Dose: 325 mg Glucagon (Glucagon For Inj 1 Mg Vial) 1 mg SQ UD PRN; Protocol PRN Reason: Hypoglycemia Protocol Stop: 07/27/23 15:56 Glucose (Glucose 10 Tab/Tube) 4 - 8 tab PO UD PRN; Protocol PRN Reason: Hypoglycemia Treatment Stop: 07/27/23 15:56 Glucose (Glucose 40% Gel 15 Gm Tube) 15 - 30 gm PO UD PRN; Protocol PRN Reason: Hypoglycemia Protocol Stop: 07/27/23 15:56 Haloperidol (Haloperidol 5 Mg Tab) 2.5 mg PO BID DUNG Stop: 08/01/23 20:59 Last Admin: 07/06/23 08:28 Dose: 2.5 mg Insulin Aspart (Insulin Aspart Per Unit Charge) 0 units SC ACHS DUNG Stop: 07/29/23 07:29 Last Admin: 07/06/23 12:12 Dose: 2 units Levothyroxine Sodium (Levothyroxine Sodium 88 Mcg Tablet) 88 mcg PO DAILYBB DUNG Stop: 07/28/23 06:29 Last Admin: 07/06/23 05:57 Dose: Not Given Lorazepam (Lorazepam 0.5 Mg Tab) 0.5 mg PO Q8 PRN PRN Reason: Anxiety Stop: 07/27/23 15:56 Last Admin: 07/06/23 08:30 Dose: 0.5 mg Magnesium Oxide (Magnesium Oxide 400 Mg Tab) 400 mg PO BID DUNG Stop: 08/03/23 09:59 Last Admin: 07/06/23 08:28 Dose: 400 mg Miscellaneous (Carbohydrates For Hypoglycemia ) 15 - 30 gm PO UD PRN PRN Reason: Hypoglycemia Protocol Stop: 07/27/23 15:56 Montelukast Sodium (Montelukast Sodium 10 Mg Tablet) 10 mg PO HS [facility] Stop: 07/27/23 20:59 Last Admin: 07/05/23 20:12 Dose: 10 mg Morphine Sulfate (Morphine Sulfate 2 Mg/Ml Carp) 2 mg IV Q4H PRN PRN Reason: Pain Stop: 07/11/23 12:10 Last Admin: 06/30/23 19:38 Dose: 2 mg Olanzapine (Olanzapine 10 Mg/2.1 Ml Sdv) 2.5 mg IM Q4H PRN PRN Reason: Agitation Stop: 07/28/23 19:21 Pantoprazole Sodium (Pantoprazole 40 Mg Tab) 40 mg PO QAM DUNG Stop: 07/28/23 08:59 Last Admin: 07/06/23 08:28 Dose: 40 mg Polyethylene Glycol (Polyethylene (Miralax) 17 Gm Pack) 17 gm PO DAILY PRN PRN Reason: Constipation Stop: 07/31/23 08:42 Quetiapine Fumarate (Quetiapine Fumarate 100 Mg Tablet) 100 mg PO TID DUNG Stop: 07/27/23 16:14 Last Admin: 07/06/23 11:49 Dose: 100 mg Senna/Docusate Sodium (Docusate Sodium/Senna 50/8.6mg Tab) 1 tab PO QAM PRN PRN Reason: Constipation Stop: 07/27/23 15:56 Last Admin: 07/04/23 13:12 Dose: 1 tab Tramadol HCl (Tramadol Hcl 50 Mg Tablet) 50 mg PO TID PRN PRN Reason: Pain Stop: 07/27/23 15:56 Last Admin: 07/06/23 11:49 Dose: 50 mg Vitamin D (Cholecalciferol 125 Mcg (5,000 Units) Tab) 125 mcg PO QAM DUNG Stop: 07/29/23 09:14 Last Admin: 07/06/23 08:28 Dose: 125 mcg (1) Closed hip fracture Encounter type: initial encounter Laterality: left Qualified Code(s): S72.002A - Fracture of unspecified part of neck of left femur, initial encounter for closed fracture
--- NOTE | 2023-07-07 18:07 | Hospitalist Progress Note ---
Date of Service July 07, 2023 Assessment & Plan (1) Closed hip fracture: Plan 78-year-old lady with PMH of advanced dementia, T2DM insulin requiring, breast cancer, GERD, PUD, depression, asthma, gout, hypercholesterolemia presented to the ED 06/27 from care home with refusal to ambulate after an unwitnessed fall. She was noted to have mildly displaced left femoral neck fracture at ED. At baseline, patient is relatively mobile at the care home though not always compliant with recommended assistive devices. She is being managed for the following: Left displaced femoral neck fracture: Postoperative acute blood loss anemia --Hip/Pelvic X ray:Mildly displaced left femoral neck fracture. --CT head:No acute intracranial abnormality. S/P Left Hip Hemiarthroplasty by Dr. Sorenson on 06/28/2023 Activity as tolerated left lower extremity per Ortho Continue PT OT Fall precautions Appreciate orthopedics input Needs follow-up with orthopedics in 10 to 14 days Pain seems to be controlled Bowel regimen to prevent constipation Waiting for rehab As per prior provider Advanced dementia Delirium with acute events which seems to be improving Delirium precaution No acute delirium and no aggressiveness but remains very confused which seems to be at her baseline CKD stage III: Cr at baseline Monitor renal function Hypomagnesemia Replace electrolytes as needed Monitor Other chronic medical conditions: Continue with/resume home meds as and when able DM II, insulin requiring: Sliding scale insulin while in hospital. On insulin and Trulicity at home. Dementia with behavioral disturbance: Per daughter, patient with advanced dementiadoes not recognize family/not oriented. Fall precaution, delirium precaution, may need one-to-one depending on hospital course. Hypothyroidism: Continue levothyroxine Depression: Continue home meds as able Benign essential hypertension: Continue Atenolol GERD: Continue PPI DVT Px: On aspirin BID Code status: DNR/DNI Disposition Rehab as able Admission and Anticipated Discharge Date Admission Date: June 27, 2023 Subjective Patient is seen and examined at bedside Unable to obtain any history due to dementia Pleasantly confused No distress on exam Waiting for rehab placement Review of Systems Review of Systems: Unobtainable due to cognitive status Physical Exam Physical Exam: Physical Exam: Vitals signs as noted above General Appearance:Moderately built and nourished, no apparent distress Head: normocephalic, Atraumatic Eyes: normal inspection, EOMI Neck: supple, Trachea midline Respiratory/Chest: Normal breath sounds, CTA, No accessory muscle use Cardiovascular: S1, S2, No murmur Abdomen/GI:Soft, Non tender, Bowel sounds present Extremities/Musculoskeletal:normal inspection, no edema, L hip edilia Neurologic/Psych:grossly no focal neurological deficits, +Dementia Skin: normal color, warm Results & Data Results & Data Vital Signs (Past 12 Hours) Vital Signs Temp Pulse Resp BP Pulse Ox O2 Del Method 07/07/23 08:00 Room Air 07/07/23 07:09 36.6 C 65 16 104/66 93 Room Air (1) Closed hip fracture Encounter type: initial encounter Laterality: left Qualified Code(s): S72.002A - Fracture of unspecified part of neck of left femur, initial encounter for closed fracture
[2023-07-08 09:13] LABS: Creatinine Clr Calc Pharmacy 32.8 ml/min; Est GFR (African American) 50.6 ml/min; Est GFR (Non-African American) 43.7 ml/min; Magnesium 1.8 mg/dl (1.7-2.4); Potassium 6.2 mmol/L (3.5-5.1)
[2023-07-08] MEDS ORDERED: STAT IV/IM STA (09:19)
[2023-07-08] MEDS: CALCIUM GLUCONATE 10% 1,000 MG in SODIUM CHLOR 0.9% MINI-B 50 ML IV ONE (10:27)
[2023-07-08] MEDS: SODIUM BICARBONATE 8.4% 150 MEQ in DEXTROSE 5% 1,000 ML IV ONE (10:27)
[2023-07-08] MEDS: SODIUM ZIRCONIUM CYCLOSILICATE 10 GM PACKET PO SCH (12:00)
[2023-07-08 14:50] LABS: BUN Creatinine Ratio 17.3 (10-20); Calcium 8.3 mg/dl (8.6-10.3); Creatinine Clr Calc Pharmacy 35.4 ml/min; Est GFR (African American) 55.7 ml/min; Est GFR (Non-African American) 48.1 ml/min; Potassium 4.6 mmol/L (3.5-5.1)
[2023-07-08] MEDS: DOXYCYCLINE HYCLATE 100 MG CAP PO SCH (16:18)
--- NOTE | 2023-07-08 16:21 | Hospitalist Progress Note ---
Date of Service July 08, 2023 Assessment & Plan (1) Closed hip fracture: Plan 78-year-old lady with PMH of advanced dementia, T2DM insulin requiring, breast cancer, GERD, PUD, depression, asthma, gout, hypercholesterolemia presented to the ED 06/27 from [facility] with refusal to ambulate after an unwitnessed fall. She was noted to have mildly displaced left femoral neck fracture at ED. At baseline, patient is relatively mobile at the [facility] though not always compliant with recommended assistive devices. She is being managed for the following: Left displaced femoral neck fracture: Postoperative acute blood loss anemia --Hip/Pelvic X ray:Mildly displaced left femoral neck fracture. --CT head:No acute intracranial abnormality. S/P Left Hip Hemiarthroplasty by Dr. Sorenson on 06/28/2023 Activity as tolerated left lower extremity per Ortho Continue PT OT Fall precautions Appreciate orthopedics input Needs follow-up with orthopedics in 10 to 14 days Pain seems to be controlled Bowel regimen to prevent constipation Started on doxycycline given mild erythema at incisional site Waiting for rehab Hyperkalemia Low K diet Received calcium gluconate, bicarbonate Continue Lokelma Monitor Potassium levels As per prior provider Advanced dementia Delirium with acute events which seems to be improving Delirium precaution No acute delirium and no aggressiveness but remains very confused which seems to be at her baseline CKD stage III: Cr at baseline Monitor renal function Hypomagnesemia Replace electrolytes as needed Monitor Other chronic medical conditions: Continue with/resume home meds as and when able DM II, insulin requiring: Sliding scale insulin while in hospital. On insulin and Trulicity at home. Dementia with behavioral disturbance: Per daughter, patient with advanced dementiadoes not recognize family/not oriented. Fall precaution, delirium precaution, may need one-to-one depending on hospital course. Hypothyroidism: Continue levothyroxine Depression: Continue home meds as able Benign essential hypertension: Continue Atenolol GERD: Continue PPI DVT Px: On aspirin BID Code status: DNR/DNI Disposition Rehab as able Admission and Anticipated Discharge Date Admission Date: June 27, 2023 Subjective Patient is seen and examined at bedside Unable to obtain any history due to dementia Pleasantly confused Noted Hyperkalemia on labs No distress on exam Waiting for rehab placement Review of Systems Review of Systems: Unobtainable due to cognitive status Physical Exam Physical Exam: Physical Exam: Vitals signs as noted above General Appearance:Moderately built and nourished, no apparent distress Head: normocephalic, Atraumatic Eyes: normal inspection, EOMI Neck: supple, Trachea midline Respiratory/Chest: Normal breath sounds, CTA, No accessory muscle use Cardiovascular: S1, S2, No murmur Abdomen/GI:Soft, Non tender, Bowel sounds present Extremities/Musculoskeletal:normal inspection, no edema, L hip edilia, mild erythema Neurologic/Psych:grossly no focal neurological deficits, +Dementia Skin: normal color, warm Results & Data Results & Data Vital Signs (Past 12 Hours) Vital Signs Temp Pulse Resp BP Pulse Ox O2 Del Method 07/08/23 07:45 Room Air 07/08/23 07:36 36.6 C 72 16 147/74 H 93 Room Air Laboratory Results [facility] 07/08/23 07/08/23 08:27 14:21 Sodium 138 138 Potassium 6.2 H* 4.6 D Chloride 107 99 Carbon Dioxide 27 33 H BUN 19 19 Creatinine 1.19 1.10 Glucose 163 H 100 H Calcium 9.0 8.3 L (1) Closed hip fracture Encounter type: initial encounter Laterality: left Qualified Code(s): S72.002A - Fracture of unspecified part of neck of left femur, initial encounter for closed fracture
--- NOTE | 2023-07-08 16:43 | Electrocardiogram Report ---
Test Reason : Blood Pressure : / mmHG Vent. Rate : 085 BPM Atrial Rate : 085 BPM P-R Int : 156 ms QRS Dur : 086 ms QT Int : 374 ms P-R-T Axes : 059 052 041 degrees QTc Int : 445 ms Normal sinus rhythm Normal ECG When compared with ECG of 27-JUN-2023 11:32, No significant change was found Confirmed by Byron Hooper [id number] on 07/08/2023 4:42:44 PM Referred By: Dinorah Barrios Confirmed By:Byron Hooper
[2023-07-09 09:31] LABS: BUN Creatinine Ratio 19.8 (10-20); Calcium 8.5 mg/dl (8.6-10.3); Creatinine Clr Calc Pharmacy 33.6 ml/min; Est GFR (African American) 52.2 ml/min; Est GFR (Non-African American) 45.1 ml/min; Magnesium 1.5 mg/dl (1.7-2.4); Potassium 4.4 mmol/L (3.5-5.1)
--- NOTE | 2023-07-09 10:24 | Hospitalist Progress Note ---
Date of Service July 09, 2023 Assessment & Plan (1) Closed hip fracture: Plan 78-year-old lady with PMH of advanced dementia, T2DM insulin requiring, breast cancer, GERD, PUD, depression, asthma, gout, hypercholesterolemia presented to the ED 06/27 from [facility] with refusal to ambulate after an unwitnessed fall. She was noted to have mildly displaced left femoral neck fracture at ED. At baseline, patient is relatively mobile at the halfway though not always compliant with recommended assistive devices. She is being managed for the following: Left displaced femoral neck fracture: Postoperative acute blood loss anemia --Hip/Pelvic X ray:Mildly displaced left femoral neck fracture. --CT head:No acute intracranial abnormality. S/P Left Hip Hemiarthroplasty by Dr. Sorenson on 06/28/2023 Activity as tolerated left lower extremity per Ortho Continue PT OT Fall precautions Appreciate orthopedics input Needs follow-up with orthopedics in 10 to 14 days Pain seems to be controlled Bowel regimen to prevent constipation Started on doxycycline given mild erythema at incisional site Rehab today Hyperkalemia Low K diet Received calcium gluconate, bicarbonate Continue Lokelma--discontinued Monitor Potassium levels Potassium levels normalized As per prior provider Advanced dementia Delirium with acute events which seems to be improving Delirium precaution No acute delirium and no aggressiveness but remains very confused which seems to be at her baseline CKD stage III: Cr at baseline Monitor renal function Hypomagnesemia Replace electrolytes as needed Monitor Other chronic medical conditions: Continue with/resume home meds as and when able DM II, insulin requiring: Sliding scale insulin while in hospital. On insulin and Trulicity at home. Dementia with behavioral disturbance: Per daughter, patient with advanced dementiadoes not recognize family/not oriented. Fall precaution, delirium precaution, may need one-to-one depending on hospital course. Hypothyroidism: Continue levothyroxine Depression: Continue home meds as able Benign essential hypertension: Continue Atenolol GERD: Continue PPI DVT Px: On aspirin BID Code status: DNR/DNI Disposition Rehab Admission and Anticipated Discharge Date Admission Date: June 27, 2023 Subjective Patient is seen and examined at bedside Unable to obtain any history due to dementia Pleasantly confused No distress on exam Hyperkalemia resolved on labs Plan to discharge to rehab facility today Review of Systems Review of Systems: All systems reviewed & are unremarkable except as noted in Subjective Physical Exam Physical Exam: Physical Exam: Vitals signs as noted above General Appearance:Moderately built and nourished, no apparent distress Head: normocephalic, Atraumatic Eyes: normal inspection, EOMI Neck: supple, Trachea midline Respiratory/Chest: Normal breath sounds, CTA, No accessory muscle use Cardiovascular: S1, S2, No murmur Abdomen/GI:Soft, Non tender, Bowel sounds present Extremities/Musculoskeletal:normal inspection, no edema, L hip edilia, mild erythema Neurologic/Psych:grossly no focal neurological deficits, +Dementia Skin: normal color, warm Results & Data Results & Data Vital Signs (Past 12 Hours) Vital Signs Temp Pulse Resp BP Pulse Ox O2 Del Method 07/09/23 08:49 Room Air 07/09/23 08:05 36.4 C L 74 12 137/60 97 Room Air Laboratory Results [facility] 07/08/23 07/09/23 14:21 08:45 Sodium 138 139 Potassium 4.6 D 4.4 Chloride 99 100 Carbon Dioxide 33 H 33 H BUN 19 23 Creatinine 1.10 1.16 Glucose 100 H 216 H Calcium 8.3 L 8.5 L (1) Closed hip fracture Encounter type: initial encounter Laterality: left Qualified Code(s): S72.002A - Fracture of unspecified part of neck of left femur, initial encounter for closed fracture
[2023-07-09] MEDS: MAGNESIUM OXIDE 400 MG TAB PO SCH (13:27)
--- NOTE | 2023-07-09 16:13 | Discharge Summary ---
Date of Service July 09, 2023 Admission HPI Per Admitting Provider This is a 78 y/o female with advanced dementia, insulin-requiring DM2, hx breast cancer, GERD w/ hx PUD, depression, asthma, gout, hypercholesterolemia, and other history as outlined below [facility] after an unwitnessed fall yesterday. Pt has advanced dementia and is unable to answer questions/provide any history so her records from [facility] and prior hospital records were extensively reviewed. Apparently, pt was found on the floor in her room yesterday, but presumed fall was not witnessed. Since then, she has been refusing to bear weight on her left leg and has not been able to ambulate so she was sent into the ED today for further evaluation. In the ED, work-up revealed a left hip fracture so ED provider discussed findings with family who would like to pursue surgical fixation if indicate so we have been consulted for admission. Currently, pt appears to be resting comfortably in the ED. Nursing reports that she gets agitated at times, specifically if her left leg is moved around too much and causes her pain. Spoke with pt's daughter, Rosi, who reported that patient should likely be using a walker to ambulate but she often refuses to. She reports pt has had multiple falls since last summer. Admission Exam Per Admitting Provider General: awake, no acute distress but moaning at times HEENT: no scleral icterus, moist oral mucosa Neck: trachea midline Heart: RRR Lungs: CTA bilaterally Abdomen: soft, NT, +BS Extremities: no pedal edema, LLE externally rotated and shortened - currently has an ice pack on her left hip Skin: no jaundice Neurologic: aphasia, not oriented to place or time, unclear if oriented to person Principal Diagnosis Left displaced femoral neck fracture Hyperkalemia Hypomagnesemia Discharge Data Allergies Allergy/AdvReac Type Severity Reaction Status Date / Time clams Allergy Unknown Unknown Verified 04/19/22 16:07 iodine Allergy Unknown Unknown Verified 04/19/22 16:07 Sulfa (Sulfonamide Allergy Unknown Unknown Verified 04/19/22 16:07 Antibiotics) Consultations 06/27/23 10:37 Consult Orthopedic Surgery Routine 06/27/23 11:21 ED Decision to Admit Stat Procedures Performed Operation Date: 06/28/23 10:40 Actual Procedures p Left Hip Hemiarthroplasty(Left) - Sánchez Sorenson DO Ordered Studies 06/27/23 08:48 CT head/brain wo con Stat Laboratory Results WBC 5.92 K/ul (4.8-10.8) 07/04/23 09:49 RBC 2.78 M/uL (4.20-5.40) L 07/04/23 09:49 Hgb 8.6 g/dl (12.0-16.0) L 07/04/23 09:49 Hct 26.0 % (37.0-47.0) L 07/04/23 09:49 MCV 93.5 fL (80.0-100.0) 07/04/23 09:49 MCH 30.9 pg (25.0-34.0) 07/04/23 09:49 MCHC 33.1 g/dL (32.0-36.0) 07/04/23 09:49 RDW Std Deviation 46.2 fL (36.4-46.3) 07/04/23 09:49 RDW Coeff of Greg 13.6 % (11.5-14.5) 07/04/23 09:49 Plt Count 192 K/uL (130-400) 07/04/23 09:49 MPV 11.5 fL (9.4-12.4) 07/04/23 09:49 Immature Gran % (Auto) 0.7 % 07/04/23 09:49 Neut % (Auto) 51.5 % 07/04/23 09:49 Lymph % (Auto) 22.8 % 07/04/23 09:49 Rice % (Auto) 10.0 % 07/04/23 09:49 Eos % (Auto) 14.2 % 07/04/23 09:49 Baso % (Auto) 0.8 % 07/04/23 09:49 Neut # (Auto) 3.05 K/uL (1.40-6.50) 07/04/23 09:49 Lymph # (Auto) 1.35 K/uL (1.20-3.40) 07/04/23 09:49 Rice # (Auto) 0.59 K/uL (0.11-0.59) 07/04/23 09:49 Eos # (Auto) 0.84 K/uL (0.00-0.50) H 07/04/23 09:49 Baso # (Auto) 0.05 K/uL (0.00-0.20) 07/04/23 09:49 Immature Gran # (Auto) 0.04 K/uL (0.01-0.20) 07/04/23 09:49 Absolute Nucleated RBC Cancelled 07/04/23 08:29 Nucleated RBC % (auto) Cancelled 07/04/23 08:29 Neutrophils % (Manual) Cancelled 07/04/23 08:29 Band Neutrophils % Cancelled 07/04/23 08:29 Lymphocytes % (Manual) Cancelled 07/04/23 08:29 Prolymphocyte % Cancelled 07/04/23 08:29 Reactive Lymphs % (Man) Cancelled 07/04/23 08:29 Monocytes % (Manual) Cancelled 07/04/23 08:29 Eosinophils % (Manual) Cancelled 07/04/23 08:29 Basophils % (Manual) Cancelled 07/04/23 08:29 Metamyelocytes % (Man) Cancelled 07/04/23 08:29 Myelocytes % (Man) Cancelled 07/04/23 08:29 Promyelocytes % (Man) Cancelled 07/04/23 08:29 Blast Cells % (Manual) Cancelled 07/04/23 08:29 Plasma Cell % (Manual) Cancelled 07/04/23 08:29 Other Cells % Cancelled 07/04/23 08:29 Nucleated RBC % Cancelled 07/04/23 08:29 Neutrophils # (Manual) Cancelled 07/04/23 08:29 Band Neutrophils # Cancelled 07/04/23 08:29 Total Absolute Neuts Cancelled 07/04/23 08:29 Lymphocytes # (Manual) Cancelled 07/04/23 08:29 Prolymphocyte # Cancelled 07/04/23 08:29 Reactive Lymphs # Cancelled 07/04/23 08:29 Total Abs Lymphocytes Cancelled 07/04/23 08:29 Monocytes # (Manual) Cancelled 07/04/23 08:29 Eosinophils # (Manual) Cancelled 07/04/23 08:29 Basophils # (Manual) Cancelled 07/04/23 08:29 Metamyelocytes # (Man) Cancelled 07/04/23 08:29 Myelocytes # (Manual) Cancelled 07/04/23 08:29 Promyelocytes # (Man) Cancelled 07/04/23 08:29 Blast Cells # (Man) Cancelled 07/04/23 08:29 Plasma Cell # (Manual) Cancelled 07/04/23 08:29 Other Cells # Cancelled 07/04/23 08:29 Nucleated RBCs # (Man) Cancelled 07/04/23 08:29 Hypersegmented Neuts Cancelled 07/04/23 08:29 Hyposegmented Neuts Cancelled 07/04/23 08:29 Hypogranular Neuts Cancelled 07/04/23 08:29 Large Granular Lymphs Cancelled 07/04/23 08:29 # Lrg Granular Lymphs Cancelled 07/04/23 08:29 Hairy Cells Cancelled 07/04/23 08:29 Smudge Cells Cancelled 07/04/23 08:29 Toxic Granulation Cancelled 07/04/23 08:29 Toxic Vacuolation Cancelled 07/04/23 08:29 Dohle Bodies Cancelled 07/04/23 08:29 Akira Rods Cancelled 07/04/23 08:29 Platelet Estimate Cancelled 07/04/23 08:29 Hypogranular Platelets Cancelled 07/04/23 08:29 Giant Platelets Cancelled 07/04/23 08:29 Platelet Satelliting Cancelled 07/04/23 08:29 RBC Morphology Cancelled 07/04/23 08:29 Polychromasia Cancelled 07/04/23 08:29 Hypochromasia Cancelled 07/04/23 08:29 Poikilocytosis Cancelled 07/04/23 08:29 Basophilic Stippling Cancelled 07/04/23 08:29 Anisocytosis Cancelled 07/04/23 08:29 Microcytosis Cancelled 07/04/23 08:29 Macrocytosis Cancelled 07/04/23 08:29 Spherocytes Cancelled 07/04/23 08:29 Pappenheimer Bodies Cancelled 07/04/23 08:29 Sickle Cells Cancelled 07/04/23 08:29 Target Cells Cancelled 07/04/23 08:29 Tear Drop Cells Cancelled 07/04/23 08:29 Ovalocytes Cancelled 07/04/23 08:29 Stomatocytes Cancelled 07/04/23 08:29 Kelly-Luquillo Bodies Cancelled 07/04/23 08:29 Echinocytes Cancelled 07/04/23 08:29 Acanthocytes (Spur) Cancelled 07/04/23 08:29 Rouleaux Cancelled 07/04/23 08:29 RBC Agglutinates Cancelled 07/04/23 08:29 Schistocytes Cancelled 07/04/23 08:29 Sezary Cell Cancelled 07/04/23 08:29 Sodium 139 mmol/L (136-145) 07/09/23 08:45 Potassium 4.4 mmol/L (3.5-5.1) 07/09/23 08:45 Chloride 100 mmol/L (98-107) 07/09/23 08:45 Carbon Dioxide 33 mmol/L (21-32) H 07/09/23 08:45 Anion Gap 6 (3-11) 07/09/23 08:45 BUN 23 mg/dl (6-23) 07/09/23 08:45 Creatinine 1.16 mg/dl (0.6-1.2) 07/09/23 08:45 Est Cr Clr Drug Dosing 33.6 ml/min 07/09/23 08:45 Est GFR ( Amer) 52.2 ml/min 07/09/23 08:45 Est GFR (Non-Af Amer) 45.1 ml/min 07/09/23 08:45 BUN/Creatinine Ratio 19.8 (10-20) 07/09/23 08:45 Glucose 216 mg/dl (70-99(Fasting)) H 07/09/23 08:45 POC Glucose 139 mg/dl (70-99) H 07/09/23 11:31 Calcium 8.5 mg/dl (8.6-10.3) L 07/09/23 08:45 Phosphorus 2.9 mg/dl (2.5-4.9) 07/04/23 08:29 Magnesium 1.5 mg/dl (1.7-2.4) L 07/09/23 08:45 Total Bilirubin 0.6 mg/dl (0.2-1.0) 06/27/23 08:49 AST 16 U/L (13-39) 06/27/23 08:49 ALT 11 U/L (7-52) 06/27/23 08:49 Alkaline Phosphatase 54 U/L (34-104) 06/27/23 08:49 Total Protein 7.2 gm/dl (6.0-8.3) 06/27/23 08:49 Albumin 3.7 gm/dl (3.4-5.0) 06/27/23 08:49 Globulin 3.5 gm/dl (2.5-4.0) 06/27/23 08:49 Albumin/Globulin Ratio 1.1 (0.9-2) 06/27/23 08:49 25-OH Vitamin D Total 10.6 ng/ml (30-100) L 06/29/23 06:17 Nasal Screen MRSA (PCR) Negative (Negative) 06/27/23 17:05 SARS-CoV-2, RNA, NAAT NEGATIVE (NEGATIVE) 06/27/23 11:30 Blood Parasites ID Cancelled 07/04/23 08:[address] 06/27/23 08:[address] DOSE: 625.8 mGy.cm HISTORY: fall TECHNIQUE: Multiaxial CT images of the head were performed without the use of intravenous contrast. Automated exposure control was utilized for this study. A dose lowering technique was utilized adhering to the principles of ALARA. Comparison: Head CT 12/11/2022. Findings: The paranasal sinuses and mastoid air cells are clear. The calvarium and skull base are intact. There is no mass, hematoma, midline shift, acute infarct. White matter hypodensity is nonspecific but suggestive of microvascular ischemic change. The ventricles and sulci demonstrate mild age-related involutional changes. Impression: No acute intracranial abnormality. ACT 112: Negative or not required by law. Electronically signed by: Efe Bonner M.D. 06/27/2023 9:44 AM Hip/Pelvis X-Ray 06/27/23 08:48 XR hip CATHLEEN 2v w pelvis CLINICAL HISTORY: fall. Bilateral hip pain. COMPARISON STUDY: Pelvis 12/11/2022. FINDINGS: There is a mildly displaced acute left femoral neck fracture. No dislocation of the femoral head. The visualized pelvic bones and right hip are intact. IMPRESSION: Mildly displaced left femoral neck fracture. ACT 112: Negative or not required by law. Electronically signed by: Efe Bonner M.D. 06/27/2023 9:28 AM Chest X-Ray 06/27/23 17:34 XR chest 1V portable HISTORY: Left hip fracture. preop COMPARISON: Chest 03/20/2023. FINDINGS: No pneumothorax. No pleural effusions. No focal lung consolidations to suggest a pneumonia. No evidence for pulmonary edema. The heart is top normal in size. There are calcifications within the aortic knob. IMPRESSION: No significant change compared to the prior study. No acute process. ACT 112: Negative or not required by law. Electronically signed by: Efe Bonner M.D. 06/27/2023 6:19 PM Hip X-Ray 06/28/23 18:08 XR hip LT 1V CLINICAL HISTORY: PACU - Post Surgical TECHNIQUE: 1 view of the left hip and single frontal view of the pelvis were obtained. Comparison: Comparison is made to pelvis radiograph 12/11/2022 FINDINGS: Patient is status post total hip arthroplasty with expected postsurgical changes including soft tissue swelling and subcutaneous emphysema. IMPRESSION: Expected postoperative appearance status post placement of total hip arthroplasty. ACT 112: Negative or not required by law. Electronically signed by: Trevor Caba M.D. 06/28/2023 8:15 PM Hospital Course (1) Closed hip fracture: Plan 78-year-old lady with PMH of advanced dementia, T2DM insulin requiring, breast cancer, GERD, PUD, depression, asthma, gout, hypercholesterolemia [facility] after an unwitnessed fall. She was noted to have mildly displaced left femoral neck fracture at ED. At baseline, [facility] though not always compliant with recommended assistive devices. She is being managed for the following: Left displaced femoral neck fracture: Postoperative acute blood loss anemia --Hip/Pelvic X ray:Mildly displaced left femoral neck fracture. --CT head:No acute intracranial abnormality. S/P Left Hip Hemiarthroplasty by Dr. Sorenson on 06/28/2023 Activity as tolerated left lower extremity per Ortho Continue PT OT Fall precautions Appreciate orthopedics input Needs follow-up with orthopedics in 10 to 14 days Pain seems to be controlled Bowel regimen to prevent constipation Started on doxycycline given mild erythema at incisional site Rehab today Hyperkalemia Low K diet Received calcium gluconate, bicarbonate Continue Lokelma--discontinued Monitor Potassium levels Potassium levels normalized As per prior provider Advanced dementia Delirium with acute events which seems to be improving Delirium precaution No acute delirium and no aggressiveness but remains very confused which seems to be at her baseline CKD stage III: Cr at baseline Monitor renal function Hypomagnesemia Replace electrolytes as needed Monitor Other chronic medical conditions: Continue with/resume home meds as and when able DM II, insulin requiring: Sliding scale insulin while in hospital. On insulin and Trulicity at home. Dementia with behavioral disturbance: Per daughter, patient with advanced dementiadoes not recognize family/not oriented. Fall precaution, delirium precaution, may need one-to-one depending on hospital course. Hypothyroidism: Continue levothyroxine Depression: Continue home meds as able Benign essential hypertension: Continue Atenolol GERD: Continue PPI DVT Px: On aspirin BID Code status: DNR/DNI Disposition Rehab Total Time Total Time Spent Total Time Spent (In Minutes): 58 minutes Discharge Plan Discharge Items Patient Disposition: Transfer [facility] Fac Reason For Visit: LEFT HIP FRACTURE Discharge Diagnosis: Left displaced femoral neck fracture Hyperkalemia Hypomagnesemia Activity: Per Instructions section Weightbearing Comment: As tolerated left lower extremity Non-emergency contact: Primary Care Provider and Surgeon Call non-emergency contact if: you have any medication questions, your symptoms worsen, your pain is concerning for you and you have a fever Follow-up/Referrals: Mukund Burton [Primary Care Provider] - Dietitian Info: Minced and Moist Diet: Carb Consistent or DM2 and Low Potassium (2gm) Addtl Attending Provider Instructions: Follow-up with your primary care physician in 1 week Follow-up with orthopedic surgeon in 1 week -- Complete antibiotic course doxycycline as prescribed. -- Obtain blood test: Basic metabolic panel, magnesium level in 1 week and f ollow-up with your physician with results. Seek immediate medical attention if your symptoms reoccur or worsen Please take all medications as instructed on discharge list below. Please call if you have any questions or problems. You can reach a [facility] hospitalist on duty at [facility] 24 hours a day by calling [phone] Pending Studies at Discharge: No Stand-Alone Forms: My [facility] Skilled Items Patient informed of condition?: Yes DNR: Yes Discharge Level of Care: Skilled Communicable Disease: No Discharge Prognosis: Stable Lines: None Urinary Catheter: No Medications and DC Order Prescriptions: New doxycycline hyclate 100 mg Capsule 100 mg PO BID Qty: 14 0RF aspirin 81 mg Tablet,Delayed Release (Dr/Ec) 81 mg PO BID Qty: 60 0RF magnesium oxide 400 mg (241.3 mg magnesium) Tablet 400 mg PO DAILY Qty: 30 0RF cholecalciferol (vitamin D3) 125 mcg (5,000 unit) Tablet 125 mcg PO QAM Qty: 30 0RF Continued atenolol 25 mg tablet 25 mg PO DAILY Qty: 90 3RF Rx Instructions: hold for HR <60 or SBP <100 and notify service if dose is held ferrous sulfate 325 mg (65 mg iron) tablet 325 mg PO BID escitalopram oxalate 20 mg tablet 20 mg PO DAILY Qty: 90 3RF omeprazole 20 mg capsule,delayed release(DR/EC) 20 mg PO DAILY montelukast 10 mg tablet 10 mg PO HS acetaminophen 325 mg Tablet 975 mg PO Q6 MDD 3g PRN (Reason: Fever Or Pain) senna 8.6 mg Capsule 17.2 mg PO .EVERY OTHER DAY PRN (Reason: Constipation) Trulicity 1.5 mg/0.5 mL pen injector 1.5 mg SUBCUT WK Rx Instructions: Fridays insulin glargine [Lantus Solostar U-100 Insulin] 100 unit/mL (3 mL) Insulin Pen 10 unit SUBCUT HS Qty: 0 0RF quetiapine 100 mg tablet 100 mg PO TID lorazepam 0.5 mg tablet 0.5 mg PO Q8 PRN (Reason: Anxiety) tramadol 50 mg Tablet 50 mg PO TID PRN (Reason: Pain) levothyroxine 88 mcg tablet 88 mcg PO DAILY magnesium hydroxide [Milk of Magnesia] 400 mg/5 mL Suspension 2,400 mg PO DAILY PRN (Reason: Constipation) Rx Instructions: Give until large bowel movement noted nystatin 100,000 unit/gram Cream 1 applic TOPICAL BID PRN (Reason: flare) naproxen sodium 220 mg Tablet 220 mg PO BID PRN (Reason: Pain) nystatin 100,000 unit/gram Powder 1 applic TOPICAL TID PRN (Reason: redness in abdominal folds) Discharge Orders: Discharge Order (Routine); Ordered 07/09/23 Ordered By: Giuseppe Fajardo Admission Data Admit Date/Time: 06/27/23 12:03 Attending Provider: Giuseppe Fajardo Admit Provider: Bigg Villagomez Primary Care Provider: Mukund Burton Other Providers: Sánchez Sorenson; Bigg Villagomez; Adam Castellanos Other Interventions: Discharge Summary Assessment (RN) Last Done: 07/09/23 13:38
== END 2023-07-09 14:40 | disposition hospice, home (50) | DRG 522 ==
LOC: ED 08:16 → 3E 12:03 → SUATTDRO 12:03 → 3E 15:00